=== PATIENT | female | born 1935 | race African-American/Black ===

== ENCOUNTER → 2018-08-01 | Day surgery (SDC) | payer MEDICARE, OTHER ==
[~2018-08-01] MED LIST: BETAMET ACET/BETAMET NA INJ 6 MG/1 ML IM PRN; BUPIVACAINE HCL 0.5 % INJ/PF 30 ML SDV ONE
--- NOTE | 2018-08-01 15:54 | RADIOLOGY REPORT (SQ) ---
EXAM DESCRIPTION: INJ W/O EPI/SUBARACH L/S SPINE COMPLETED DATE/TIME: 08/01/2018 3:18 pm REASON FOR STUDY: M54.16 RADICULOPATHY, LUMBAR REGION M54.16 RADICULOPATHY, LUMBAR REGION COMPARISON: MRI lumbar spine 07/08/2018, [facility] FLUOROSCOPY TIME: 1.8 minutes 5 digital radiographic images saved to PACS. TECHNIQUE: Intra-operative images acquired during surgical procedure to evaluate progress. NUMBER OF IMAGES: 5 digital radiographic images saved to pac's LIMITATIONS: None. FINDINGS: Procedure was discussed with the patient and she agreed to procedure. Informed consent wa s obtained. Patient has lower lumbar pain without radiculopathy. S After sterile skin prep ChloraPrep and local lidocaine for skin and deep tissue anesthesia, a 22 gaug e needle was placed along the left interlaminar space at the L2-3 level. I was unable to pass the ne edle into the dorsal epidural space to the ligament calcifications/ossification. Fluoroscopy over th e remainder of the lower lumbar spine yielded no window for placement of lumbar epidural steroid thro ugh a interlaminar injection. Further attempts over the lumbar spine were not made. Fluoroscopy was used to localize the sacral foramen. After sterile skin prep and local lidocaine for skin and soft tissue anesthesia, a 25 gauge needle was used to access the lumbar epidural space. Ne edle placement was confirmed by injection of small amount Dotarem contrast. At this point, 6 mg of C elestone and 3.5 mL of dilute 0.5% bupivacaine was injected. No immediate postprocedure complication s. IMPRESSION: Caudal epidural steroid injection under fluoroscopy as above COMMENT: Quality ID [id number]: Final reports for procedures using fluoroscopy that document radiation exp osure indices, or exposure time and number of fluorographic images (if radiation exposure indices are not available) Please consult full operative report of the attending physician for description of the procedure. TECHNICAL DOCUMENTATION: JOB ID: [id number] [employer]- All Rights Reserved Reading location - IP/workstation name: [email or web address]
== END ==
LOC: RAD 13:46
PROVIDERS: ATTEND Physician Assistant
DX: M54.16 Radiculopathy, lumbar region (principal)
CPT/HCPCS: 62321; A9576; J3490; J0702

== ENCOUNTER 2019-10-28 09:02 | Observation (INO) | payer MEDICARE, OTHER ==
[2019-10-28 09:27] LABS: ABSOLUTE BASOPHILS # (AUTO) 0.1 10^3/uL (0.0-0.2); ABSOLUTE LYMPHOCYTES (AUTO) 1.1 10^3/uL (0.5-4.7); ABSOLUTE MONOCYTES (AUTO) 0.6 10^3/uL (0.1-1.4); ABSOLUTE NEUT (AUTO) 6.5 10^3/uL (1.7-8.2); BASOPHILS % (AUTO) 1.1 % (0-2); HEMATOCRIT 30.3 % (36.0-47.0); HEMOGLOBIN 10.1 g/dL (12.0-15.5); LYMPHOCYTES % (AUTO) 13.8 % (13-45); MEAN CORPUSCULAR HEMOGLOBIN 28.9 pg (27.0-33.4); MEAN CORPUSCULAR HGB CONC 33.2 g/dL (32.0-36.0); MEAN CORPUSCULAR VOLUME 87 fl (80-97); MONOCYTES % (AUTO) 6.8 % (3-13); PLATELET COUNT 284 10^3/uL (150-450); RED BLOOD COUNT 3.48 10^6/uL (3.72-5.28); RED CELL DISTRIBUTION WIDTH 14.2 % (11.5-14.0); SEGMENTED NEUTROPHILS % (AUTO) 78.3 % (42-78); TOTAL CELLS COUNTED % (AUTO) 100 %; WHITE BLOOD COUNT 8.3 10^3/uL (4.0-10.5)
[2019-10-28 09:29] LABS: VENOUS BLOOD BASE EXCESS 8.9 mmol/L; VENOUS BLOOD HCO3 38.6 mmol/L (20-32); VENOUS BLOOD PH 7.27 (7.30-7.42)
[2019-10-28 09:33] LABS: VENOUS BLOOD PCO2 85.4 mmHg (35-63)
--- NOTE | 2019-10-28 09:35 | RADIOLOGY REPORT (SQ) ---
EXAM DESCRIPTION: CHEST SINGLE VIEW COMPLETED DATE/TIME: 10/28/2019 9:24 am REASON FOR STUDY: sob COMPARISON: None. EXAM PARAMETERS: NUMBER OF VIEWS: One view. TECHNIQUE: Single frontal radiographic view of the chest acquired. RADIATION DOSE: NA LIMITATIONS: None. FINDINGS: LUNGS AND PLEURA: Lung schuler are hyperexpanded. There is elevation of left hemidiaphragm . Pleural thickening versus small left effusion. No consolidation. No pneumothorax. MEDIASTINUM AND HILAR STRUCTURES: No masses. Contour normal. HEART AND VASCULAR STRUCTURES: Heart normal in size. Normal vasculature. BONES: No acute findings. HARDWARE: None in the chest. OTHER: No other significant finding. IMPRESSION: COPD with small left pleural effusion versus pleural thickening. TECHNICAL DOCUMENTATION: JOB ID: [id number] [email or web address]- All Rights Reserved Reading location - IP/workstation name: [email or web address]
[2019-10-28 09:57] LABS: ALBUMIN 3.5 g/dL (3.5-5.0); ALKALINE PHOSPHATASE 91 U/L (38-126); ASPARTATE AMINO TRANSFERASE 29 U/L (14-36); BILIRUBIN,TOTAL 0.6 mg/dL (0.2-1.3); BLOOD UREA NITROGEN 17 mg/dL (7-20); CALCIUM 8.9 mg/dL (8.4-10.2); CARBON DIOXIDE 37 mmol/L (22-30); GLUCOSE 108 mg/dL (75-110); POTASSIUM 3.9 mmol/L (3.6-5.0); TOTAL PROTEIN 6.9 g/dL (6.3-8.2)
[2019-10-28 10:03] LABS: ANION GAP 5 (5-19); CHLORIDE 97 mmol/L (98-107)
[2019-10-28 10:10] LABS: NT PRO BNP 236 pg/mL (<450)
[2019-10-28 10:11] LABS: TROPONIN I < 0.012 ng/mL
[2019-10-28 10:22] LABS: ARTERIAL BLOOD BASE EXCESS 5.3 mmol/L; ARTERIAL BLOOD H2CO3 1.82 mmol/L (1.05-1.35); ARTERIAL BLOOD HCO3 32.5 mmol/L (20-24); ARTERIAL BLOOD O2 SATURATION 96.1 % (94-98); ARTERIAL BLOOD PCO2 60.4 mmHg (35-45); ARTERIAL BLOOD PH 7.35 (7.35-7.45); ARTERIAL BLOOD PO2 88.2 mmHg (80-100); ARTERIAL BLOOD TOTAL CO2 34.4 mmol/L (21-25)
[2019-10-28 10:23] LABS: ARTERIAL BLOOD FIO2 40%
[2019-10-28] MEDS ORDERED: CEFTRIAXONE 2 GM/D5W RTU 2 GM/50 ML RTUPB IV ONE (10:49)
[2019-10-28] MEDS ORDERED: AZITHROMYCIN 250 MG TABLET PO ONE (10:49)
--- NOTE | 2019-10-28 11:07 | ER Document Report ---
ED General - General Chief Complaint: Shortness Of Breath Stated Complaint: DIFFICULTY BREATHING Time Seen by Provider: 10/28/19 09:26 Primary Care Provider: BARRY PALMER MD [Primary Care Provider] - Follow up as needed Mode of Arrival: Medic Information source: Patient, Emergency Med Personnel TRAVEL OUTSIDE OF THE [place] IN LAST 30 DAYS: No - HPI Notes: Patient presents with complaints of shortness of breath. This apparently started earlier this morning. It is been severe and constant. It was with exertion better with rest. No known radiation of the symptoms. No fever. She has had a mild dry cough. She does have a history of COPD. No history of congestive heart failure. No significant pain. No fevers or rashes. Paramedics gave the patient CPAP, nebulizers, steroids, and magnesium with significant relief of the patient's symptoms in route. - Related Data Allergies/Adverse Reactions: No Known Allergies Allergy (Unverified 06/15/14 11:32) Past Medical History - General Information source: Patient - Social History Smoking Status: Former Smoker Frequency of alcohol use: None Drug Abuse: None Family History: Reviewed & Not Pertinent Patient has suicidal ideation: No Patient has homicidal ideation: No - Past Medical History Cardiac Medical History: Reports: Hx Hypertension Denies: Hx Heart Attack Pulmonary Medical History: Reports: Hx Asthma - USES INHALER Neurological Medical History: Denies: Hx Cerebrovascular Accident, Hx Seizures GI Medical History: Denies: Hx Hepatitis, Hx Hiatal Hernia, Hx Ulcer Infectious Medical History: Denies: Hx Hepatitis Past Surgical History: Reports: Hx Hysterectomy. Denies: Hx Mastectomy, Hx Open Heart Surgery, Hx Pacemaker Review of Systems - Review of Systems Constitutional: Malaise, Weakness. denies: Chills, Fever Cardiovascular: Palpitations. denies: Chest pain Respiratory: Cough, Short of breath -: Yes All other systems reviewed and negative Physical Exam - Vital signs Vitals: Resp Pulse Ox 20 100 10/28/19 09:09 10/28/19 09:09 Interpretation: Hypertensive, Tachypneic - General General appearance: Alert In distress: Mild - HEENT Head: Normocephalic, Atraumatic Eyes: Normal Pupils: PERRL - Respiratory Respiratory status: Respiratory distress - Mild Chest status: Nontender Breath sounds: Decreased air movement, Nonproductive cough, Rhonchi, Wheezing Chest palpation: Normal - Cardiovascular Rhythm: Regular Heart sounds: Normal auscultation Murmur: No - Abdominal Inspection: Normal Distension: No distension Bowel sounds: Normal Tenderness: Nontender Organomegaly: No organomegaly - Back Back: Normal, Nontender - Extremities General upper extremity: Normal inspection, Nontender, Normal color, Normal ROM, Normal temperature General lower extremity: Normal inspection, Nontender, Normal color, Normal ROM, Normal temperature, Normal weight bearing. No: Rebecca's sign - Neurological Neuro grossly intact: Yes Cognition: Normal Orientation: AAOx4 Derwent Coma Scale Eye Opening: Spontaneous Nina Coma Scale Verbal: Oriented Nina Coma Scale Motor: Obeys Commands Derwent Coma Scale Total: 15 Speech: Normal Motor strength normal: LUE, RUE, LLE, RLE Sensory: Normal - Psychological Associated symptoms: Normal affect, Normal mood - Skin Skin Temperature: Warm Skin Moisture: Dry Skin Color: Normal Course - Re-evaluation Re-evalutation: 10/28/19 11:04 Patient has history of COPD and arrived with some mild respiratory distress. Blood gas shows the patient has some CO2 retention and mild acidemia consistent with respiratory failure. She has no evidence of pneumonia at this time. No ev idence of heart failure. However given patient's history of COPD I will cover her with antibiotics. I have discussed the case with the hospitalist for admission. - Vital Signs Vital signs: Temp Pulse Resp BP Pulse Ox 97.3 F 20 202/75 H 100 10/28/19 09:16 10/28/19 09:09 10/28/19 09:12 10/28/19 09:15 - Laboratory Result Diagrams: 10/28/19 09:14 10/28/19 09:14 Laboratory results interpreted by me: 10/28/19 10/28/19 10/28/19 09:14 09:14 09:14 RBC 3.48 L Hgb 10.1 L Hct 30.3 L RDW 14.2 H Seg Neutrophils % 78.3 H Carbonic Acid ABG pCO2 ABG HCO3 ABG Total CO2 VBG pH 7.27 L VBG pCO2 85.4 H* VBG HCO3 38.6 H Chloride 97 L Carbon Dioxide 37 H 10/28/19 10:08 RBC Hgb Hct RDW Seg Neutrophils % Carbonic Acid 1.82 H ABG pCO2 60.4 H ABG HCO3 32.5 H ABG Total CO2 34.4 H VBG pH VBG pCO2 VBG HCO3 Chloride Carbon Dioxide - Diagnostic Test Radiology reviewed: Image reviewed, Reports reviewed - EKG Interpretation by Me EKG shows normal: Sinus rhythm Rate: Normal - 83 Rhythm: NSR Langley/QRS: No: Right axis deviation, Left axis deviation Critical Care Note - Critical Care Note Total time excluding time spent on procedures (mins): 50 Comments: Approximately 50 minutes of critical care time were spent taking care of this patient with hypercapnic respiratory failure. This was spent with multiple reassessments. It was spent discussing with multiple consultants. It was spent reviewing laboratories and x-rays. Discharge - Discharge Clinical Impression: Acute exacerbation of chronic obstructive pulmonary disease (COPD), Acute respiratory failure with hypercapnia Condition: Fair Disposition: ADMITTED INPATIENT Admitting Provider: Dyan (Hospitalist) - martha to admit Unit Admitted: Medical Floor Referrals: BARRY PALMER MD [Primary Care Provider] - Follow up as needed
[2019-10-28] MEDS ORDERED: MAG HYDROX/AL HYDROX/SIMETH SUSP 30 ML UDCUP PO PRN (11:30)
[2019-10-28] MEDS ORDERED: ALBUTEROL SULFATE 0.083% NEB 2.5 MG/3 ML AMPUL NEB PRN (11:30)
[2019-10-28] MEDS ORDERED: ACETAMINOPHEN 325 MG TABLET PO PRN (11:30)
[2019-10-28] MEDS ORDERED: ONDANSETRON HCL INJ/PF 4 MG/2 ML SDV IV PRN (11:30)
[2019-10-28] MEDS ORDERED: HYDRALAZINE HCL INJ/PF 20 MG/1 ML SDV IV PRN (12:58)
--- NOTE | 2019-10-28 13:09 | PDOC H&P ---
History of Present Illness Admission Date/PCP: 10/28/19 11:13 BARRY PALMER MD Patient complains of: shortness of breath History of Present Illness: TERRI ARREDONDO is a 84 year old female with a past medical history significant for COPD (home O2 dependent) and hypertension who presented to the emergency department today via EMS with complaint of shortness of breath; initially CPAP dependent after receiving IV Solu-Medrol, nebulizer treatments, and IV magnesium . Patient reports 2 to 3 days of progressively worsening shortness of breath and nonproductive cough. Her shortness of breath significantly worsened earlier this morning and was unresponsive to home nebulizer treatments. Evaluation in the emergency department revealed Hypertension, tachypnea, and h ypoxia on her baseline oxygen requirement. She was found to have her baseline anemia with a hemoglobin of 10.1, compensated respiratory acidosis with a PCO2 of 60.4, elevated bicarb on chemistry but otherwise unremarkable laboratory evaluation. Chest x-ray demonstrated COPD changes without acute findings. She was placed on BiPAP and referred to the hospital service for admission and management of the above-stated complaints and findings. Past Medical History Cardiac Medical History: Reports: Hypertension Denies: Myocardial Infarction Pulmonary Medical History: Reports: Asthma, Other - chronic respiratory failure (home O2 dependent) EENT Medical History: Reports: Cataracts Neurological Medical History: Denies: Ischemic CVA, Seizures Endocrine Medical History: Reports: None Renal/ Medical History: Reports: None Malignancy Medical History: Reports: None GI Medical History: Denies: Hepatitis, Hiatal Hernia Musculoskeltal Medical History: Reports: None Skin Medical History: Reports: None Psychiatric Medical History: Reports: Tobacco Dependency Traumatic Medical History: Reports: None Hematology: Reports: Anemia Denies: Sickle Cell Disease Infectious Medical History: Reports: None Past Surgical History Past Surgical History: Reports: Hysterectomy Denies: Amputation, Mastectomy, Pacemaker Social History Information Source: Patient Smoking Status: Former Smoker Electronic Cigarette use?: No Frequency of Alcohol Use: None Hx Recreational Drug Use: No Hx Prescription Drug Abuse: No Family History Family History: Reviewed & Not Pertinent Parental Family History Reviewed: Yes Children Family History Reviewed: Yes Sibling(s) Family History Reviewed.: Yes Medication/Allergy Home Medications: Diazepam [Valium 5 Mg Tablet] 5 mg PO PRN PRN 04/17/13 Amlodipine Besylate [Norvasc 10 mg Tablet] 10 mg PO DAILY 06/15/14 Cetirizine HCl [Zyrtec] 10 mg PO DAILY PRN 06/15/14 Valsartan/Hydrochlorothiazide [Valsartan-Hctz 320-12.5 mg Tab] 1 each PO DAILY 06/15/14 Albuterol Sulfate [Proair HFA] 2 puff IH Q4 PRN 06/16/14 Tiotropium [place] [Spiriva Handihaler 18 mcg/dose (30 Dose)] 1 cap IH DAILY 06/16/14 Allergies/Adverse Reactions: No Known Allergies Allergy (Unverified 06/15/14 11:32) Review of Systems Constitutional: ABSENT: chills, fever(s), headache(s), weight gain, weight loss Eyes: ABSENT: visual disturbances Ears: ABSENT: hearing changes Cardiovascular: ABSENT: chest pain, dyspnea on exertion, edema, orthropnea, palpitations Respiratory: PRESENT: cough, dyspnea. ABSENT: hemoptysis Gastrointestinal: ABSENT: abdominal pain, constipation, diarrhea, hematemesis, hematochezia, nausea, vomiting Genitourinary: ABSENT: dysuria, hematuria Musculoskeletal: ABSENT: joint swelling Integumentary: ABSENT: rash, wounds Neurological: ABSENT: abnormal gait, abnormal speech, confusion, dizziness, focal weakness, syncope Psychiatric: ABSENT: anxiety, depression, homidical ideation, suicidal ideation Endocrine: ABSENT: cold intolerance, heat intolerance, polydipsia, polyuria Hematologic/Lymphatic: ABSENT: easy bleeding, easy bruising Physical Exam Vital Signs: Temp Pulse Resp BP Pulse Ox 97.3 F 22 H 202/75 H 97 10/28/19 09:16 10/28/19 11:16 10/28/19 09:12 10/28/19 11:16 Intake & Output 10/27/19 10/28/19 10/29/19 06:59 06:59 06:59 Intake Total 50 Balance 50 Weight 47.8 kg General appearance: PRESENT: no acute distress, cooperative, thin, well- developed, well-nourished Head exam: PRESENT: atraumatic, normocephalic Eye exam: PRESENT: conjunctiva pink, EOMI, PERRLA. ABSENT: scleral icterus Mouth exam: PRESENT: moist, tongue midline Teeth exam: PRESENT: poor dentation Respiratory exam: PRESENT: accessory muscle use, decreased breath sounds, prolonged expiratory phas, rhonchi, symmetrical, tachypnea, wheezes, other - Supplemental oxygen via nasal cannula. ABSENT: rales Cardiovascular exam: PRESENT: RRR, +S1, +S2. ABSENT: diastolic murmur, rubs, systolic murmur Pulses: PRESENT: normal dorsalis pedis pul Vascular exam: PRESENT: normal capillary refill Extremities exam: PRESENT: full ROM. ABSENT: calf tenderness, clubbing, pedal edema Neurological exam: PRESENT: alert, awake, oriented to person, oriented to place, oriented to time, oriented to situation, CN II-XII grossly intact. ABSENT: motor sensory deficit Psychiatric exam: PRESENT: appropriate affect, normal mood. ABSENT: homicidal ideation, suicidal ideation Skin exam: PRESENT: dry, intact, warm. ABSENT: cyanosis, rash Results Laboratory Results: 10/28/19 09:14 10/28/19 09:14 10/28/19 10/28/19 10/28/19 09:14 09:14 09:14 WBC 8.3 RBC 3.48 L Hgb 10.1 L Hct 30.3 L MCV 87 MCH 28.9 MCHC 33.2 RDW 14.2 H Plt Count 284 Seg Neutrophils % 78.3 H Carbonic Acid HCO3/H2CO3 Ratio ABG pH ABG pCO2 ABG pO2 ABG HCO3 ABG O2 Saturation ABG Base Excess VBG pH 7.27 L VBG pCO2 85.4 H* VBG HCO3 38.6 H VBG Base Excess 8.9 FiO2 Sodium 139.0 Potassium 3.9 Chloride 97 L Carbon Dioxide 37 H Anion Gap 5 BUN 17 Creatinine 0.58 Est GFR ( Amer) > 60 Glucose 108 Calcium 8.9 Total Bilirubin 0.6 AST 29 Alkaline Phosphatase 91 Total Protein 6.9 Albumin 3.5 10/28/19 10:08 WBC RBC Hgb Hct MCV MCH MCHC RDW Plt Count Seg Neutrophils % Carbonic Acid 1.82 H HCO3/H2CO3 Ratio 17:1 ABG pH 7.35 ABG pCO2 60.4 H ABG pO2 88.2 ABG HCO3 32.5 H ABG O2 Saturation 96.1 ABG Base Excess 5.3 VBG pH VBG pCO2 VBG HCO3 VBG Base Excess FiO2 40% Sodium Potassium Chloride Carbon Dioxide Anion Gap BUN Creatinine Est GFR ( Amer) Glucose Calcium Total Bilirubin AST Alkaline Phosphatase Total Protein Albumin 10/28/19 09:14 Troponin I < 0.012 NT-Pro-B Natriuret Pep 236 Impressions: Chest X-Ray 10/28/19 09:08 IMPRESSION: COPD with small left pleural effusion versus pleural thickening. Assessment and Plan - Diagnosis (1) Acute exacerbation of chronic obstructive pulmonary disease (COPD) Is this a current diagnosis for this admission?: Yes Plan: Patient is admitted to the medical floor. She is placed on supplemental oxygen and BiPAP as needed to maintain oxygen. Continue Solu-medrol. Scheduled and as needed nebulizer treatments. Twice daily Mucinex. Encourage pulmonary toilet with flutter valve and ambulation. (2) Acute and chronic respiratory failure Qualifiers: Respiratory failure complication: hypoxia and hypercapnia Qualified Code(s): J96.21 - Acute and chronic respiratory failure with hypoxia; J96.22 - Acute and chronic respiratory failure with hypercapnia Is this a current diagnosis for this admission?: Yes Plan: Secondary to #1. Evaluation and management as above. (3) Hypertension Is this a current diagnosis for this admission?: Yes Plan: Cardiac diet. Resume home medications once reconciled. IV hydralazine as needed for blood pressure control. (4) Anemia Qualifiers: Anemia type: unspecified type Qualified Code(s): D64.9 - Anemia, unspec ified Is this a current diagnosis for this admission?: Yes Plan: History of anemia; hemoglobin at baseline. We will check anemia panel with a.m. lab work. - Time Time Spent with patient: 35 or more minutes Medications reviewed and adjusted accordingly: Yes Anticipated discharge: Home Within: within 48 hours
[2019-10-28] MEDS: HEPARIN SOD (PORCINE) 5,000 UNIT/ML 1 ML VIAL SUBCUT SCH ×2 (13:51→22:58)
[2019-10-28] MEDS: METHYLPREDNISOLONE INJ 40 MG/1 ML SDV IV SCH ×2 (13:52→22:59)
[2019-10-28] MEDS: IPRATROPIUM/ALBUTEROL 0.5-2.5 MG/3 ML AMPUL NEB SCH ×2 (14:02→19:58)
--- NOTE | 2019-10-28 17:23 | EKG REPORT ---
SEVERITY:- ABNORMAL ECG - SINUS OR ECTOPIC ATRIAL RHYTHM LEFT VENTRICULAR HYPERTROPHY : Confirmed by: Merline Waters MD 28-Oct-2019 17:23:13
[2019-10-29] MEDS: GUAIFENESIN 600 MG TABLET.SA PO SCH ×3 (01:11→22:58)
[2019-10-29] MEDS: FAMOTIDINE 20 MG TABLET PO SCH ×3 (01:11→22:58)
[2019-10-29] MEDS: IPRATROPIUM/ALBUTEROL 0.5-2.5 MG/3 ML AMPUL NEB SCH ×4 (02:02→19:48)
[2019-10-29] MEDS ORDERED: NALOXONE HCL INJ/PF 0.4 MG/1 ML SDV ONE (03:30)
[2019-10-29 05:18] LABS: ABSOLUTE RETICS # 0.059 10^6/uL (0.028-0.122); HEMATOCRIT 27.4 % (36.0-47.0); HEMOGLOBIN 9.3 g/dL (12.0-15.5); MEAN CORPUSCULAR HEMOGLOBIN 29.1 pg (27.0-33.4); MEAN CORPUSCULAR VOLUME 86 fl (80-97); PLATELET COUNT 260 10^3/uL (150-450); RED CELL DISTRIBUTION WIDTH 13.7 % (11.5-14.0); RETICULOCYTE COUNT (AUTO) 1.83 % (0.66-2.85); WHITE BLOOD COUNT 6.4 10^3/uL (4.0-10.5)
[2019-10-29 05:48] LABS: BLOOD UREA NITROGEN 17 mg/dL (7-20); CALCIUM 8.7 mg/dL (8.4-10.2); GLUCOSE 113 mg/dL (75-110); POTASSIUM 4.2 mmol/L (3.6-5.0)
[2019-10-29 05:55] LABS: CARBON DIOXIDE 39 mmol/L (22-30); CHLORIDE 97 mmol/L (98-107)
[2019-10-29 05:58] LABS: ANION GAP 3 (5-19)
[2019-10-29 06:56] LABS: FOLATE 9.79 ng/mL (>2.76)
[2019-10-29] MEDS: HEPARIN SOD (PORCINE) 5,000 UNIT/ML 1 ML VIAL SUBCUT SCH ×3 (07:52→22:57)
[2019-10-29] MEDS: METHYLPREDNISOLONE INJ 40 MG/1 ML SDV IV SCH ×3 (07:52→22:57)
[2019-10-29] MEDS: DOCUSATE SODIUM 100 MG CAPSULE PO SCH (09:05)
--- NOTE | 2019-10-29 18:58 | PDOC PROGRESS REPORT ---
Subjective Progress Note for:: 10/29/19 Subjective:: TERRI ARREDONDO is a 84 year old female with a past medical history significant for COPD (home O2 dependent) and hypertension who was admitted 10/28/2019 with Acute respiratory failure with hypoxia and hypercapnia secondary to COPD exacerbation. Patient was seen on morning rounds. She was found to be resting in bed, comfortably, on her baseline oxygen requirement. She did not require BiPAP overnight. She reports that she is feeling significantly better, though does continue to have slight shortness of breath with minimal activity. She denies fever, chest pain, palpitations, abdominal pain, nausea vomiting and diarrhea. She does request assistance with setting up for home health services and a relating walker. Has no other questions or concerns at this time. No concerns per nursing. Reason For Visit: ACUTE RESPIRATORY FAILURE W/ HYPOXIA, COPD Physical Exam Vital Signs: Temp Pulse Resp BP Pulse Ox 98.3 F 83 16 169/64 H 97 10/29/19 11:28 10/29/19 14:10 10/29/19 14:10 10/29/19 11:28 10/29/19 14:10 Intake & Output 10/28/19 10/29/19 10/30/19 06:59 06:59 06:59 Intake Total 290 500 Balance 290 500 Weight 43.2 kg General appearance: PRESENT: no acute distress, cooperative, thin, well-developed, well-nourished Head exam: PRESENT: atraumatic, normocephalic Eye exam: PRESENT: conjunctiva pink, EOMI, PERRLA. ABSENT: scleral icterus Mouth exam: PRESENT: moist, tongue midline Teeth exam: PRESENT: poor dentation Respiratory exam: PRESENT: clear to auscultation ada, decreased breath sounds - Bibasilar, symmetrical, unlabored, other - Supplemental oxygen via nasal nam alize. ABSENT: rales, rhonchi, wheezes Cardiovascular exam: PRESENT: RRR, +S1, +S2. ABSENT: diastolic murmur, rubs, systolic murmur Pulses: PRESENT: normal dorsalis pedis pul Vascular exam: PRESENT: normal capillary refill Extremities exam: PRESENT: full ROM. ABSENT: calf tenderness, clubbing, pedal edema Neurological exam: PRESENT: alert, awake, oriented to person, oriented to place, oriented to time, oriented to situation, CN II-XII grossly intact. ABSENT: motor sensory deficit Psychiatric exam: PRESENT: appropriate affect, normal mood. ABSENT: homicidal ideation, suicidal ideation Skin exam: PRESENT: dry, intact, warm. ABSENT: cyanosis, rash Results Laboratory Results: 10/29/19 04:54 10/29/19 04:54 10/29/19 10/29/19 04:54 04:54 WBC 6.4 RBC 3.20 L Hgb 9.3 L Hct 27.4 L MCV 86 MCH 29.1 MCHC 34.0 RDW 13.7 Plt Count 260 Retic Count (auto) 1.83 Sodium 138.6 Potassium 4.2 Chloride 97 L Carbon Dioxide 39 H Anion Gap 3 L BUN 17 Creatinine 0.55 Est GFR ( Amer) > 60 Glucose 113 H Calcium 8.7 Iron 41.0 TIBC 195 L % Saturation 21 Ferritin 80.50 Vitamin B12 880.0 Folate 9.79 10/28/19 09:14 Troponin I < 0.012 NT-Pro-B Natriuret Pep 236 Impressions: Chest X-Ray 10/28/19 09:08 IMPRESSION: COPD with small left pleural effusion versus pleural thickening. Assessment and Plan - Diagnosis (1) Acute exacerbation of chronic obstructive pulmonary disease (COPD) Is this a current diagnosis for this admission?: Yes Plan: Improved; now maintaining oxygen saturations on nasal cannula while at rest. Lung sounds are improved. Patient is admitted to the medical floor. She is placed on supplemental oxygen and BiPAP as needed to maintain oxygen. Continue Solu-medrol; will decrease steroids today. Scheduled and as needed nebulizer treatments. Twice daily Mucinex. Encourage pulmonary toilet with flutter valve and ambulation. (2) Acute and chronic respiratory failure Qualifiers: Respiratory failure complication: hypoxia and hypercapnia Qualified Code(s): J96.21 - Acute and chronic respiratory failure with hypoxia; J96.22 - Acute and chronic respiratory failure with hypercapnia Is this a current diagnosis for this admission?: Yes Plan: Secondary to #1. Evaluation and management as above. (3) Hypertension Is this a current diagnosis for this admission?: Yes Plan: Cardiac diet. Resume home amlodipine and hydrochlorothiazide. IV hydralazine as needed for blood pressure control. (4) Anemia Qualifiers: Anemia type: unspecified type Qualified Code(s): D64.9 - Anemia, unspecified Is this a current diagnosis for this admission?: Yes Plan: History of anemia; hemoglobin at baseline. Anemia panel unremarkable. Continue multivitamin and iron supplement. - Time Time Spent with patient: 25-34 minutes Medications reviewed and adjusted accordingly: Yes Anticipated discharge: Home with Homehealth Within: within 48 hours
[2019-10-30] MEDS: IPRATROPIUM/ALBUTEROL 0.5-2.5 MG/3 ML AMPUL NEB SCH ×3 (01:38→13:49)
[2019-10-30] MEDS: METHYLPREDNISOLONE INJ 40 MG/1 ML SDV IV SCH ×2 (06:59→15:14)
[2019-10-30] MEDS: HEPARIN SOD (PORCINE) 5,000 UNIT/ML 1 ML VIAL SUBCUT SCH ×2 (07:01→15:12)
[2019-10-30] MEDS: DOCUSATE SODIUM 100 MG CAPSULE PO SCH (09:08)
[2019-10-30] MEDS: FAMOTIDINE 20 MG TABLET PO SCH (09:08)
[2019-10-30] MEDS: GUAIFENESIN 600 MG TABLET.SA PO SCH (09:08)
[2019-10-30] MEDS ORDERED: FERROUS SULFATE 325 MG TABLET PO SCH (10:00)
[2019-10-30] MEDS ORDERED: AMLODIPINE BESYLATE 10 MG TABLET PO SCH (10:00)
[2019-10-30] MEDS ORDERED: HYDROCHLOROTHIAZIDE 12.5 MG TABLET PO SCH (10:00)
[2019-10-30] MEDS ORDERED: MULTIVITAMIN TABLET PO SCH (10:00)
[2019-10-30 16:29] VITALS: BP 176/63
--- NOTE | 2019-10-31 18:08 | PDOC DISCHARGE SUMMARY ---
Impression - Admit/DC Date/PCP Admission Date/Primary Care Provider: 10/28/19 11:13 BARRY PALMER MD Discharge Date: 10/30/19 - Discharge Diagnosis (1) Acute exacerbation of chronic obstructive pulmonary disease (COPD) Is this a current diagnosis for this admission?: Yes (2) Acute and chronic respiratory failure Is this a current diagnosis for this admission?: Yes (3) Hypertension Is this a current diagnosis for this admission?: Yes (4) Anemia Is this a current diagnosis for this admission?: Yes - Additional Information Resuscitation Status: Full Code Discharge Diet: As Tolerated Referrals: [facility] [Provider Group] (pt is seen by the blue team at [facility]) Prescriptions: Prednisone [Deltasone 20 mg Tablet] 60 mg PO DAILY #12 tablet Ferrous Sulfate [Feosol 325 mg Tablet] 325 mg PO DAILY #30 tablet Guaifenesin [Mucinex Sr 600 mg Tablet.sa] 600 mg PO Q12 #14 tablet.sa Famotidine [Pepcid 20 mg Tablet] 20 mg PO Q12 #60 tablet Multivitamin [Tab-A-Desmond (Multiple Vitamin) Tablet] 1 tab PO DAILY #30 tablet Home Medications: Amlodipine Besylate [Norvasc 10 mg Tablet] 10 mg PO DAILY 06/15/14 Albuterol Sulfate [Proair HFA] 2 puff IH Q4 PRN 06/16/14 Fluticasone/Salmeterol [Advair 250-50 Diskus 14 Dose/Diskus] 1 inh IH Q12H 10/28/19 Hydrochlorothiazide [Hydrodiuril 12.5 mg Tablet] 12.5 mg PO DAILY 10/28/19 Ipratropium/Albuterol Sulfate [Combivent Respimat 4 gm Mdi] 1 puff IH Q6 10/28/19 Acetaminophen [Tylenol 325 mg Tablet] 650 mg PO Q4HP PRN tablet 10/30/19 Famotidine [Pepcid 20 mg Tablet] 20 mg PO Q12 #60 tablet 10/30/19 Ferrous Sulfate [Feosol 325 mg Tablet] 325 mg PO DAILY #30 tablet 10/30/19 Guaifenesin [Mucinex Sr 600 mg Tablet.sa] 600 mg PO Q12 #14 tablet.sa 10/30/19 Multivitamin [Tab-A-Desmond (Multiple Vitamin) Tablet] 1 tab PO DAILY #30 tablet 10/30/19 Prednisone [Deltasone 20 mg Tablet] 60 mg PO DAILY #12 tablet 10/30/19 History of Present Illiness History of Present Illness: TERRI ARREDONDO is a 84 year old female with a past medical history significant for COPD (home O2 dependent) and hypertension who presented to the emergency department today via EMS with complaint of shortness of breath; initially CPAP dependent after receiving IV Solu-Medrol, nebulizer treatments, and IV magnesium. Patient reports 2 to 3 days of progressively worsening shortness of breath and nonproductive cough. Her shortness of breath significantly worsened earlier this morning and was unresponsive to home nebulizer treatments. Evaluation in the emergency department revealed Hypertension, tachypnea, and hypoxia on her baseline oxygen requirement. She was found to have her baseline anemia with a hemoglobin of 10.1, compensated respiratory acidosis with a PCO2 of 60.4, elevated bicarb on chemistry but otherwise unremarkable laboratory evaluation. Chest x-ray demonstrated COPD changes without acute findings. She was placed on BiPAP and referred to the hospital service for admission and management of the above-stated complaints and findings. Hospital Course Hospital Course: (1) Acute exacerbation of chronic obstructive pulmonary disease (COPD) Acute exacerbation is resolved. Now maintaining oxygen saturations on baseline oxygen requirement; lung sounds are clear. Patient was admitted to the medical floor. She was placed on supplemental oxygen and BiPAP, scheduled and as needed nebulizer treatments, twice daily Mucinex, and Solu-medrol. Pulmonary toilet was encourage with flutter valve and ambulation. Her symptoms rapidly improved and she was discharged home the following day with home health services. (2) Acute and chronic respiratory failure Secondary to #1. Evaluation and management as above. (3) Hypertension Cardiac diet. Continued on home amlodipine and hydrochlorothiazide. (4) Anemia History of anemia; hemoglobin at baseline. Anemia panel unremarkable. Continue multivitamin and iron supplement. Physical Exam Vital Signs: Temp Pulse Resp BP Pulse Ox 97.7 F 63 16 176/63 H 97 10/30/19 16:27 10/30/19 16:27 10/30/19 16:27 10/30/19 16:27 10/30/19 16:27 Intake & Output 10/30/19 10/31/19 11/01/19 06:59 06:59 06:59 Intake Total 900 Output Total 2 Balance 898 Weight 41.6 kg General appearance: PRESENT: no acute distress, cooperative, thin, well-develop ed, well-nourished Head exam: PRESENT: atraumatic, normocephalic Eye exam: PRESENT: conjunctiva pink, EOMI, PERRLA. ABSENT: scleral icterus Mouth exam: PRESENT: moist, tongue midline Teeth exam: PRESENT: poor dentation Respiratory exam: PRESENT: clear to auscultation ada, decreased breath sounds - bibasilar, symmetrical, unlabored, other - baseline oxygen requirement. ABSENT: rales, rhonchi, wheezes Cardiovascular exam: PRESENT: RRR, +S1, +S2. ABSENT: diastolic murmur, rubs, systolic murmur Pulses: PRESENT: normal dorsalis pedis pul Vascular exam: PRESENT: normal capillary refill GI/Abdominal exam: PRESENT: normal bowel sounds, soft. ABSENT: distended, guarding, mass, organolmegaly, rebound, tenderness Rectal exam: PRESENT: deferred Extremities exam: PRESENT: full ROM. ABSENT: calf tenderness, clubbing, pedal edema Musculoskeletal exam: PRESENT: ambulatory Neurological exam: PRESENT: alert, awake, oriented to person, oriented to place, oriented to time, oriented to situation, CN II-XII grossly intact. ABSENT: motor sensory deficit Psychiatric exam: PRESENT: appropriate affect, normal mood. ABSENT: homicidal ideation, suicidal ideation Skin exam: PRESENT: dry, intact, warm. ABSENT: cyanosis, rash Results Laboratory Results: WBC 6.4 10^3/uL (4.0-10.5) 10/29/19 04:54 RBC 3.20 10^6/uL (3.72-5.28) L 10/29/19 04:54 Hgb 9.3 g/dL (12.0-15.5) L 10/29/19 04:54 Hct 27.4 % (36.0-47.0) L 10/29/19 04:54 MCV 86 fl (80-97) 10/29/19 04:54 MCH 29.1 pg (27.0-33.4) 10/29/19 04:54 MCHC 34.0 g/dL (32.0-36.0) 10/29/19 04:54 RDW 13.7 % (11.5-14.0) 10/29/19 04:54 Plt Count 260 10^3/uL (150-450) 10/29/19 04:54 Lymph % (Auto) 13.8 % (13-45) 10/28/19 09:14 Glenn % (Auto) 6.8 % (3-13) 10/28/19 09:14 Eos % (Auto) 0.0 % (0-6) 10/28/19 09:14 Baso % (Auto) 1.1 % (0-2) 10/28/19 09:14 Reticulocyte # 0.059 10^6/uL (0.028-0.122) 10/29/19 04:54 Absolute Neuts (auto) 6.5 10^3/uL (1.7-8.2) 10/28/19 09:14 Absolute Lymphs (auto) 1.1 10^3/uL (0.5-4.7) 10/28/19 09:14 Absolute Monos (auto) 0.6 10^3/uL (0.1-1.4) 10/28/19 09:14 Absolute Eos (auto) 0.0 10^3/uL (0.0-0.6) 10/28/19 09:14 Absolute Basos (auto) 0.1 10^3/uL (0.0-0.2) 10/28/19 09:14 Seg Neutrophils % 78.3 % (42-78) H 10/28/19 09:14 Retic Count (auto) 1.83 % (0.66-2.85) 10/29/19 04:54 Carbonic Acid 1.82 mmol/L (1.05-1.35) H 10/28/19 10:08 HCO3/H2CO3 Ratio 17:1 10/28/19 10:08 ABG pH 7.35 (7.35-7.45) 10/28/19 10:08 ABG pCO2 60.4 mmHg (35-45) H 10/28/19 10:08 ABG pO2 88.2 mmHg (80-100) 10/28/19 10:08 ABG HCO3 32.5 mmol/L (20-24) H 10/28/19 10:08 ABG Total CO2 34.4 mmol/L (21-25) H 10/28/19 10:08 ABG O2 Saturation 96.1 % (94-98) 10/28/19 10:08 ABG Base Excess 5.3 mmol/L 10/28/19 10:08 VBG pH 7.27 (7.30-7.42) L 10/28/19 09:14 VBG pCO2 85.4 mmHg (35-63) H* 10/28/19 09:14 VBG HCO3 38.6 mmol/L (20-32) H 10/28/19 09:14 VBG Base Excess 8.9 mmol/L 10/28/19 09:14 FiO2 40% 10/28/19 10:08 Sodium 138.6 mmol/L (137-145) 10/29/19 04:54 Potassium 4.2 mmol/L (3.6-5.0) 10/29/19 04:54 Chloride 97 mmol/L (98-107) L 10/29/19 04:54 Carbon Dioxide 39 mmol/L (22-30) H 10/29/19 04:54 Anion Gap 3 (5-19) L 10/29/19 04:54 BUN 17 mg/dL (7-20) 10/29/19 04:54 Creatinine 0.55 mg/dL (0.52-1.25) 10/29/19 04:54 Est GFR ( Amer) > 60 (>60) 10/29/19 04:54 Est GFR (MDRD) Non-Af > 60 (>60) 10/29/19 04:54 Glucose 113 mg/dL (75-110) H 10/29/19 04:54 Calcium 8.7 mg/dL (8.4-10.2) 10/29/19 04:54 Iron 41.0 ug/dL (37-170) 10/29/19 04:54 TIBC 195 ug/dL (250-450) L 10/29/19 04:54 % Saturation 21 % 10/29/19 04:54 Ferritin 80.50 ng/mL (11.1-264.0) 10/29/19 04:54 Total Bilirubin 0.6 mg/dL (0.2-1.3) 10/28/19 09:14 Direct Bilirubin 0.0 mg/dL (0.0-0.4) 10/28/19 09:14 Neonat Total Bilirubin Not Reportable 10/28/19 09:14 Neonat Direct Bilirubin Not Reportable 10/28/19 09:14 Neonat Indirect Bili Not Reportable 10/28/19 09:14 AST 29 U/L (14-36) 10/28/19 09:14 ALT 18 U/L (<35) 10/28/19 09:14 Alkaline Phosphatase 91 U/L (38-126) 10/28/19 09:14 Troponin I < 0.012 ng/mL 10/28/19 09:14 NT-Pro-B Natriuret Pep 236 pg/mL (<450) 10/28/19 09:14 Total Protein 6.9 g/dL (6.3-8.2) 10/28/19 09:14 Albumin 3.5 g/dL (3.5-5.0) 10/28/19 09:14 Vitamin B12 880.0 pg/mL (239-931) 10/29/19 04:54 Folate 9.79 ng/mL (>2.76) 10/29/19 04:54 10/28/19 09:14 Troponin I < 0.012 NT-Pro-B Natriuret Pep 236 Impressions: Chest X-Ray 10/28/19 09:08 IMPRESSION: COPD with small left pleural effusion versus pleural thickening. Plan Plan of Treatment: Patient was discharged home, in stable condition, to the care of family with home health services. She is advised to follow up with her primary care provider within 1 week. Take medications as prescribed. Avoid respiratory triggers (smoke, dust, pollen, pet dander). Return to the emergency department as needed for concerning symptoms. Time Spent: Greater than 30 Minutes Stroke Is this a Stroke Patient?: No Acute Heart Failure - Is this a Heart Failure Patient?: No
== END 2019-10-30 17:35 | disposition home or self-care (01) ==
LOC: ER 09:02 → INTOOBSV 11:13 → EH 11:13 → 4W 13:39
PROVIDERS: ADMIT Internal Medicine; ATTEND Internal Medicine
DX: J44.1 Chronic obstructive pulmonary disease with (acute) exacerbation (principal); J96.21 Acute and chronic respiratory failure with hypoxia; J96.22 Acute and chronic respiratory failure with hypercapnia; I10 Essential (primary) hypertension; D64.9 Anemia, unspecified; Z99.81 Dependence on supplemental oxygen; Z79.899 Other long term (current) drug therapy; Z87.891 Personal history of nicotine dependence
CPT/HCPCS: 93005; 99291; 36415 ×2; 82607; 82803 ×2; 82728; 82746; 83540; 83550; 85025; 85027; 85045; 80048; 80053; 84484; 83880; 71045; 93010; 94660 ×2; 94667; 94668; 94640 ×3; 97116; 97163; 92610; 97530; 97535; 97167; G0378 ×4; J1644 ×3; A9270 ×15; J0360; J2920 ×3; J0696; J7620

== ENCOUNTER 2019-11-23 13:29 | Inpatient (IN) | payer MEDICARE, OTHER ==
[2019-11-23] MEDS ORDERED: METHYLPREDNISOLONE INJ 125 MG/2 ML SDV IV ONE (13:38)
[2019-11-23] MEDS ORDERED: IPRATROPIUM/ALBUTEROL 0.5-2.5 MG/3 ML AMPUL NEB ONE (13:38)
--- NOTE | 2019-11-23 13:43 | ER Document Report ---
ED Medical Screen (RME) - General Chief Complaint: Breathing Difficulty Stated Complaint: WHEEZING Time Seen by Provider: 11/23/19 13:34 Primary Care Provider: BARRY PALMER MD [Primary Care Provider] - Follow up as needed Mode of Arrival: Wheelchair Information source: Patient Notes: Patient presents complaint of difficulty breathing and cough that started today. Patient denies any fever. Patient with a history of COPD and does wear oxygen. Patient with labored breathing, speaking in short word sentences. I have greeted and performed a rapid initial assessment of this patient. A comprehensive ED assessment and evaluation of the patient, analysis of test results and completion of the medical decision making process will be conducted by additional ED providers. TRAVEL OUTSIDE OF THE [place] IN LAST 30 DAYS: No - Related Data Allergies/Adverse Reactions: shellfish derived Allergy (Verified 11/23/19 13:35) Past Medical History - Past Medical History Cardiac Medical History: Reports: Hx Hypertension Denies: Hx Heart Attack Pulmonary Medical History: Reports: Hx Asthma Neurological Medical History: Denies: Hx Cerebrovascular Accident, Hx Seizures GI Medical History: Denies: Hx Hepatitis, Hx Hiatal Hernia, Hx Ulcer Infectious Medical History: Denies: Hx Hepatitis Past Surgical History: Reports: Hx Hysterectomy. Denies: Hx Mastectomy, Hx Open Heart Surgery, Hx Pacemaker Physical Exam - Respiratory Respiratory status: Labored, Tachypnea Breath sounds: Nonproductive cough, Rhonchi, Wheezing Doctor's Discharge - Discharge Referrals: BARRY PALMER MD [Primary Care Provider] - Follow up as needed
[2019-11-23] MEDS: ALBUTEROL SULFATE 0.083% NEB 2.5 MG/3 ML AMPUL NEB SCH ×2 (13:57→14:17)
--- NOTE | 2019-11-23 14:38 | ER Document Report ---
ED Respiratory Problem - General Chief Complaint: Breathing Difficulty Stated Complaint: WHEEZING Time Seen by Provider: 11/23/19 13:34 Primary Care Provider: BARRY PALMER MD [NO LOCAL MD] - Follow up as needed Mode of Arrival: Wheelchair Notes: Patient with known history of COPD complains of cough and shortness of breath. She stopped smoking approximately 2 months ago. She had similar symptoms about a month ago treated with oral prednisone. She has a history of hypertension but not heart disease. She is on oxygen at home. TRAVEL OUTSIDE OF THE [place] IN LAST 30 DAYS: No - Related Data Allergies/Adverse Reactions: shellfish derived Allergy (Verified 11/23/19 13:35) Past Medical History - General Information source: Patient - Social History Smoking Status: Former Smoker Family History: Reviewed & Not Pertinent Patient has suicidal ideation: No Patient has homicidal ideation: No - Past Medical History Cardiac Medical History: Reports: Hx Hypertension Denies: Hx Heart Attack Pulmonary Medical History: Reports: Hx Asthma Neurological Medical History: Denies: Hx Cerebrovascular Accident, Hx Seizures GI Medical History: Denies: Hx Hepatitis, Hx Hiatal Hernia, Hx Ulcer Infectious Medical History: Denies: Hx Hepatitis Past Surgical History: Reports: Hx Hysterectomy. Denies: Hx Mastectomy, Hx Open Heart Surgery, Hx Pacemaker Review of Systems - Review of Systems Cardiovascular: denies: Chest pain, Palpitations Respiratory: Cough. denies: Hemoptysis -: Yes All other systems reviewed and negative Physical Exam - Vital signs Vitals: Temp Pulse Resp BP Pulse Ox 97.4 F 87 32 H 176/52 H 97 11/23/19 13:40 11/23/19 13:40 11/23/19 13:40 11/23/19 13:40 11/23/19 13:40 - General General appearance: Appears well, Alert - HEENT Head: Normocephalic, Atraumatic Eyes: Normal Mucous membranes: Normal - Respiratory Respiratory status: Tachypnea Breath sounds: Rales, Wheezing - Cardiovascular Rhythm: Regular Heart sounds: Normal auscultation Murmur: No - Abdominal Inspection: Normal Tenderness: Nontender - Back Back: Normal - Extremities General upper extremity: Normal inspection, Normal ROM General lower extremity: Normal inspection, Normal ROM - Neurological Neuro grossly intact: Yes - Psychological Associated symptoms: Normal affect, Normal mood - Skin Skin Temperature: Warm Skin Moisture: Dry Course - Re-evaluation Re-evalutation: 11/23/19 14:55 EKG per me shows normal sinus rhythm at a rate of 88 with left atrial abnormality and left ventricular hypertrophy unchanged from previous EKG performed approximately a month ago on October 28, 2019. Mild artifact present today. 11/23/19 14:56 Patient given albuterol and Solu-Medrol without improvement of breathing. 11/23/19 15:41 LABS REVIEWED. CXR NAD PER RADIOLOGIST, C/W COPD. 11/23/19 16:47 Discussed case in detail with Nash roque, covering for Dr. Lopez. Will admit to [facility] [place] third-floor. Patient stable. - Vital Signs Vital signs: Temp Pulse Resp BP Pulse Ox 97.4 F 87 29 H 156/58 H 85 L 11/23/19 13:40 11/23/19 13:40 11/23/19 14:01 11/23/19 14:01 11/23/19 13:55 - Laboratory Result Diagrams: 11/23/19 14:20 11/23/19 14:20 Laboratory results interpreted by me: 11/23/19 11/23/19 14:20 14:20 RBC 3.57 L Hgb 10.4 L Hct 31.3 L RDW 15.9 H Lymph % (Auto) 12.9 L Seg Neutrophils % 80.3 H Carbon Dioxide 37 H Anion Gap 4 L Discharge - Discharge Clinical Impression: COPD exacerbation, Hypoxia Dyspnea Qualifiers: Dyspnea type: unspecified Qualified Code(s): R06.00 - Dyspnea, unspecified Condition: Stable Disposition: ADMITTED INPATIENT Admitting Provider: John (Hospitalist) Unit Admitted: [facility] [place] Referrals: BARRY PALMER MD [NO LOCAL MD] - Follow up as needed
[2019-11-23 14:47] LABS: ABSOLUTE LYMPHOCYTES (AUTO) 0.6 10^3/uL (0.5-4.7); ABSOLUTE MONOCYTES (AUTO) 0.3 10^3/uL (0.1-1.4); ABSOLUTE NEUT (AUTO) 3.6 10^3/uL (1.7-8.2); BASOPHILS % (AUTO) 0.6 % (0-2); EOSINOPHILS % (AUTO) 0.1 % (0-6); HEMATOCRIT 31.3 % (36.0-47.0); HEMOGLOBIN 10.4 g/dL (12.0-15.5); LYMPHOCYTES % (AUTO) 12.9 % (13-45); MEAN CORPUSCULAR HEMOGLOBIN 29.2 pg (27.0-33.4); MEAN CORPUSCULAR HGB CONC 33.3 g/dL (32.0-36.0); MEAN CORPUSCULAR VOLUME 88 fl (80-97); MONOCYTES % (AUTO) 6.1 % (3-13); PLATELET COUNT 190 10^3/uL (150-450); RED BLOOD COUNT 3.57 10^6/uL (3.72-5.28); RED CELL DISTRIBUTION WIDTH 15.9 % (11.5-14.0); SEGMENTED NEUTROPHILS % (AUTO) 80.3 % (42-78); TOTAL CELLS COUNTED % (AUTO) 100 %; WHITE BLOOD COUNT 4.5 10^3/uL (4.0-10.5)
--- NOTE | 2019-11-23 14:47 | RADIOLOGY REPORT (SQ) ---
EXAM DESCRIPTION: CHEST SINGLE VIEW COMPLETED DATE/TIME: 11/23/2019 2:31 pm REASON FOR STUDY: diff breathing COMPARISON: 10/28/2019 EXAM PARAMETERS: NUMBER OF VIEWS: One view. TECHNIQUE: Single frontal radiographic view of the chest acquired. RADIATION DOSE: NA LIMITATIONS: None. FINDINGS: LUNGS AND PLEURA: Hyperexpansion of the lungs. No infiltrate, effusion, or mass. MEDIASTINUM AND HILAR STRUCTURES: No masses. Contour normal. HEART AND VASCULAR STRUCTURES: Heart normal in size. Normal vasculature. BONES: Scoliosis. HARDWARE: None in the chest. OTHER: No other significant finding. IMPRESSION: Chronic lung changes with no acute cardiopulmonary findings. TECHNICAL DOCUMENTATION: JOB ID: [id number] [employer]- All Rights Reserved Reading location - IP/workstation name: [email or web address]
[2019-11-23 15:05] LABS: ALBUMIN 3.8 g/dL (3.5-5.0); ALKALINE PHOSPHATASE 75 U/L (38-126); ASPARTATE AMINO TRANSFERASE 20 U/L (14-36); BILIRUBIN,TOTAL 0.3 mg/dL (0.2-1.3); BLOOD UREA NITROGEN 19 mg/dL (7-20); CALCIUM 9.1 mg/dL (8.4-10.2); CARBON DIOXIDE 37 mmol/L (22-30); CHLORIDE 98 mmol/L (98-107); GLUCOSE 105 mg/dL (75-110); POTASSIUM 4.2 mmol/L (3.6-5.0)
[2019-11-23 15:09] LABS: ANION GAP 4 (5-19)
[2019-11-23 16:10] LABS: A TYPE INFLUENZA AG NEGATIVE (NEGATIVE); B INFLUENZA AG NEGATIVE (NEGATIVE)
[2019-11-23] MEDS ORDERED: ACETAMINOPHEN 325 MG TABLET PO PRN (17:15)
[2019-11-23] MEDS ORDERED: ONDANSETRON HCL INJ/PF 4 MG/2 ML SDV IV PRN (17:15)
[2019-11-23] MEDS ORDERED: MAG HYDROX/AL HYDROX/SIMETH SUSP 30 ML UDCUP PO PRN (17:15)
[2019-11-23] MEDS ORDERED: ONDANSETRON 4 MG TAB.RAPDIS PO PRN (17:15)
--- NOTE | 2019-11-23 17:37 | PDOC H&P ---
History of Present Illness Admission Date/PCP: 11/23/19 17:19 History of Present Illness: TERRI ARREDONDO is a 84 year old female who today had worsening shortness of breath. States it really started about 2 days ago when she has been using her home nebulizer just not getting any better. That she really did not want to be admitted today but she would come in and stay overnight but she wants to go home in the morning. Was just in the hospital and discharged on for the same problem. At that time she was in the hospital for 3 days for COPD exacerbation. She denies fever chills nausea vomiting or chest pain. She has done no recent traveling and she has not been exposed anyone else sick. This appears to be a COPD exacerbation with no suspicion for Covid 19. Past Medical History Cardiac Medical History: Reports: Hypertension Denies: Myocardial Infarction Pulmonary Medical History: Reports: Asthma Neurological Medical History: Denies: Seizures GI Medical History: Denies: Hepatitis, Hiatal Hernia Hematology: Reports: Anemia Denies: Sickle Cell Disease Past Surgical History Past Surgical History: Reports: Hysterectomy Denies: Amputation, Mastectomy, Pacemaker Social History Smoking Status: Former Smoker Frequency of Alcohol Use: None Hx Recreational Drug Use: No Hx Prescription Drug Abuse: No - Advance Directive Resuscitation Status: Full Code Family History Family History: Reviewed & Not Pertinent Parental Family History Reviewed: No Children Family History Reviewed: No Sibling(s) Family History Reviewed.: No Medication/Allergy Home Medications: Amlodipine Besylate [Norvasc 10 mg Tablet] 10 mg PO DAILY 06/15/14 Albuterol Sulfate [Proair HFA] 2 puff IH Q4 PRN 06/16/14 Fluticasone/Salmeterol [Advair 250-50 Diskus 14 Dose/Diskus] 1 inh IH Q12H 10/28/19 Hydrochlorothiazide [Hydrodiuril 12.5 mg Tablet] 12.5 mg PO DAILY 10/28/19 Ipratropium/Albuterol Sulfate [Combivent Respimat 4 gm Mdi] 1 puff IH Q6 10/28/19 Acetaminophen [Tylenol 325 mg Tablet] 650 mg PO Q4HP PRN tablet 10/30/19 Famotidine [Pepcid 20 mg Tablet] 20 mg PO Q12 #60 tablet 10/30/19 Ferrous Sulfate [Feosol 325 mg Tablet] 325 mg PO DAILY #30 tablet 10/30/19 Guaifenesin [Mucinex Sr 600 mg Tablet.sa] 600 mg PO Q12 #14 tablet.sa 10/30/19 Multivitamin [Tab-A-Desmond (Multiple Vitamin) Tablet] 1 tab PO DAILY #30 tablet 10/30/19 Prednisone [Deltasone 20 mg Tablet] 60 mg PO DAILY #12 tablet 10/30/19 Allergies/Adverse Reactions: shellfish derived Allergy (Verified 11/23/19 13:35) Review of Systems Constitutional: ABSENT: chills, fever(s), headache(s), weight gain, weight loss Cardiovascular: ABSENT: chest pain, dyspnea on exertion, edema, orthropnea, palpitations Respiratory: PRESENT: dyspnea. ABSENT: cough, hemoptysis Neurological: ABSENT: abnormal gait, abnormal speech, confusion, dizziness, focal weakness, syncope Psychiatric: ABSENT: anxiety, depression, homidical ideation, suicidal ideation Physical Exam Vital Signs: Temp Pulse Resp BP Pulse Ox 97.4 F 87 29 H 156/58 H 85 L 11/23/19 13:40 11/23/19 13:40 11/23/19 14:01 11/23/19 14:01 11/23/19 13:55 Intake & Output 11/22/19 11/23/19 11/24/19 06:59 06:59 06:59 Weight 49.4 kg General appearance: PRESENT: no acute distress, thin Respiratory exam: PRESENT: rhonchi Cardiovascular exam: PRESENT: RRR. ABSENT: diastolic murmur, rubs, systolic murmur Neurological exam: PRESENT: alert, awake, oriented to person, oriented to place, oriented to time, oriented to situation, CN II-XII grossly intact, other - Very much alert oriented. ABSENT: motor sensory deficit Psychiatric exam: PRESENT: appropriate affect, normal mood. ABSENT: homicidal ideation, suicidal ideation Results Laboratory Results: 11/23/19 14:20 11/23/19 14:20 11/23/19 11/23/19 14:20 14:20 WBC 4.5 RBC 3.57 L Hgb 10.4 L Hct 31.3 L MCV 88 MCH 29.2 MCHC 33.3 RDW 15.9 H Plt Count 190 Seg Neutrophils % 80.3 H Sodium 139.4 Potassium 4.2 Chloride 98 Carbon Dioxide 37 H Anion Gap 4 L BUN 19 Creatinine 0.67 Est GFR ( Amer) > 60 Glucose 105 Calcium 9.1 Magnesium 2.1 Total Bilirubin 0.3 AST 20 Alkaline Phosphatase 75 Total Protein 7.0 Albumin 3.8 11/23/19 14:20 Troponin I < 0.012 Impressions: Chest X-Ray 11/23/19 13:39 IMPRESSION: Chronic lung changes with no acute cardiopulmonary findings. Assessment and Plan - Diagnosis (1) Acute exacerbation of chronic obstructive pulmonary disease (COPD) Is this a current diagnosis for this admission?: Yes (2) Dyspnea Qualifiers: Dyspnea type: unspecified Qualified Code(s): R06.00 - Dyspnea, unspecified Is this a current diagnosis for this admission?: Yes (3) Hypoxia Is this a current diagnosis for this admission?: Yes (4) Hypertension Is this a current diagnosis for this admission?: Yes - Plan Summary Summary: Admit her for pretty much the same thing she had 3 weeks ago which is IV steroids, nebulizer, watch her overnight and discharge her in the morning. Negative flu swab. BNP is pending but I doubt this is the cause of her problem - Time Time Spent with patient: 35 or more minutes
[2019-11-23] MEDS: DOCUSATE SODIUM 100 MG CAPSULE PO SCH (18:50)
[2019-11-23 19:37] LABS: APPEARANCE,URINE CLOUDY; BILIRUBIN,URINE NEGATIVE (NEGATIVE); COLOR,URINE YELLOW; GLUCOSE, URINE NEGATIVE (NEGATIVE); KETONES,URINE NEGATIVE (NEGATIVE); PROTEIN,URINE NEGATIVE (NEGATIVE); URINE SPECIFIC GRAVITY 1.018
[2019-11-23] MEDS: IPRATROPIUM/ALBUTEROL 0.5-2.5 MG/3 ML AMPUL NEB SCH (20:20)
[2019-11-23] MEDS: METHYLPREDNISOLONE INJ 40 MG/1 ML SDV IV SCH (21:10)
--- NOTE | 2019-11-23 21:31 | EKG REPORT ---
SEVERITY:- ABNORMAL ECG - SINUS RHYTHM PROBABLE LEFT ATRIAL ABNORMALITY LEFT VENTRICULAR HYPERTROPHY LATERAL INFARCT, AGE INDETERMINATE : Confirmed by: David Rocha MD 23-Nov-2019 21:31:06
[2019-11-24 05:40] LABS: HEMATOCRIT 29.8 % (36.0-47.0); HEMOGLOBIN 9.7 g/dL (12.0-15.5); MEAN CORPUSCULAR HEMOGLOBIN 28.3 pg (27.0-33.4); MEAN CORPUSCULAR HGB CONC 32.5 g/dL (32.0-36.0); MEAN CORPUSCULAR VOLUME 87 fl (80-97); PLATELET COUNT 182 10^3/uL (150-450); RED BLOOD COUNT 3.43 10^6/uL (3.72-5.28); RED CELL DISTRIBUTION WIDTH 15.4 % (11.5-14.0)
[2019-11-24 06:15] LABS: ANION GAP 7 (5-19); BLOOD UREA NITROGEN 25 mg/dL (7-20); CALCIUM 9.2 mg/dL (8.4-10.2); CARBON DIOXIDE 32 mmol/L (22-30); CHLORIDE 99 mmol/L (98-107); GLUCOSE 157 mg/dL (75-110); POTASSIUM 4.1 mmol/L (3.6-5.0)
[2019-11-24 06:16] LABS: WHITE BLOOD COUNT 17.8 10^3/uL (4.0-10.5)
[2019-11-24 06:18] LABS: BASOPHILS % (MANUAL) 0 % (0-2); EOSINOPHILS % (MANUAL) 0 % (0-6); LYMPHOCYTES % (MANUAL) 0 % (13-45); MONOCYTES % (MANUAL) 0 % (3-13); SEGMENTED NEUTROPHILS % (MAN) 100 % (42-78); TOTAL CELLS COUNTED 100
[2019-11-24 06:21] LABS: ANISOCYTOSIS SLIGHT; OVALOCYTES SLIGHT; PLATELET COMMENT ADEQUATE; TEAR DROP CELLS SLIGHT
[2019-11-24] MEDS: IPRATROPIUM/ALBUTEROL 0.5-2.5 MG/3 ML AMPUL NEB SCH ×4 (08:06→19:46)
[2019-11-24] MEDS: HYDROCHLOROTHIAZIDE 12.5 MG TABLET PO SCH (08:55)
[2019-11-24] MEDS: DOCUSATE SODIUM 100 MG CAPSULE PO SCH (09:17)
[2019-11-24] MEDS: ENOXAPARIN SODIUM INJ 40 MG/0.4 ML DISP.SYRIN SUBCUT SCH (09:17)
[2019-11-24] MEDS: METHYLPREDNISOLONE INJ 40 MG/1 ML SDV IV SCH ×2 (09:17→21:11)
[2019-11-24] MEDS: HYDRALAZINE HCL INJ/PF 20 MG/1 ML SDV IV PRN (09:18)
--- NOTE | 2019-11-24 14:35 | PDOC PROGRESS REPORT ---
Subjective Progress Note for:: 11/24/19 Subjective:: No adverse events overnight. No new complaints. She wants to know if she can go home today. She is currently on 2 L of oxygen. She has not gotten out of bed yet. Reason For Visit: COPD EXAVERBATION, ANEMIA, HYPERTENSION Physical Exam Vital Signs: Temp Pulse Resp BP Pulse Ox 97.8 F 85 18 155/56 H 100 11/24/19 11:51 11/24/19 12:04 11/24/19 12:04 11/24/19 11:51 11/24/19 12:04 Intake & Output 11/23/19 11/24/19 11/25/19 06:59 06:59 06:59 Intake Total 100 Output Total 0 Balance 100 Weight 49.4 kg General appearance: PRESENT: no acute distress, cooperative, disheveled, thin Respiratory exam: PRESENT: decreased breath sounds, rhonchi, symmetrical, unlabored. ABSENT: accessory muscle use, chest wall tenderness, prolonged expiratory phas, rales, tachypnea, wheezes Cardiovascular exam: PRESENT: RRR, +S1, +S2 Pulses: PRESENT: normal carotid pulses Vascular exam: PRESENT: normal capillary refill GI/Abdominal exam: PRESENT: normal bowel sounds, soft. ABSENT: distended, guarding, rebound, tenderness Extremities exam: ABSENT: clubbing, pedal edema Musculoskeletal exam: PRESENT: normal inspection. ABSENT: deformity Neurological exam: PRESENT: awake, oriented to person, oriented to place, o riented to situation Psychiatric exam: PRESENT: appropriate affect, normal mood Skin exam: PRESENT: dry, warm Results Laboratory Results: 11/24/19 04:52 11/24/19 04:52 11/23/19 11/23/19 11/23/19 14:20 14:20 19:10 WBC 4.5 RBC 3.57 L Hgb 10.4 L Hct 31.3 L MCV 88 MCH 29.2 MCHC 33.3 RDW 15.9 H Plt Count 190 Seg Neutrophils % 80.3 H Sodium 139.4 Potassium 4.2 Chloride 98 Carbon Dioxide 37 H Anion Gap 4 L BUN 19 Creatinine 0.67 Est GFR ( Amer) > 60 Glucose 105 Calcium 9.1 Magnesium 2.1 Total Bilirubin 0.3 AST 20 Alkaline Phosphatase 75 Total Protein 7.0 Albumin 3.8 Urine Color YELLOW Urine Appearance CLOUDY Urine pH 5.0 Ur Specific [place] 1.018 Urine Protein NEGATIVE Urine Glucose (UA) NEGATIVE Urine Ketones NEGATIVE Urine Blood SMALL H Urine RBC (Auto) 4 11/24/19 11/24/19 04:52 04:52 WBC 17.8 H D RBC 3.43 L Hgb 9.7 L Hct 29.8 L MCV 87 MCH 28.3 MCHC 32.5 RDW 15.4 H Plt Count 182 Seg Neutrophils % Not Reportable Sodium 138.4 Potassium 4.1 Chloride 99 Carbon Dioxide 32 H Anion Gap 7 BUN 25 H Creatinine 0.55 Est GFR ( Amer) > 60 Glucose 157 H Calcium 9.2 Magnesium Total Bilirubin AST Alkaline Phosphatase Total Protein Albumin Urine Color Urine Appearance Urine pH Ur Specific [place] Urine Protein Urine Glucose (UA) Urine Ketones Urine Blood Urine RBC (Auto) 11/23/19 11/23/19 14:20 14:20 Troponin I < 0.012 NT-Pro-B Natriuret Pep 117 Impressions: Chest X-Ray 11/23/19 13:39 IMPRESSION: Chronic lung changes with no acute cardiopulmonary findings. Assessment and Plan - Diagnosis (1) Acute exacerbation of chronic obstructive pulmonary disease (COPD) Is this a current diagnosis for this admission?: Yes Plan: Responding to steroids, antibiotics, and bronchodilators, continue current therapy. Have ordered this physical therapy evaluation. (2) Hypoxia Is this a current diagnosis for this admission?: Yes Plan: Currently stable on 2 L nasal cannula. I believe this is what she is on at home. (3) Acute and chronic respiratory failure Qualifiers: Respiratory failure complication: hypoxia and hypercapnia Qualified Code(s): J96.21 - Acute and chronic respiratory failure with hypoxia; J96.22 - Acute and chronic respiratory failure with hypercapnia Is this a current diagnosis for this admission?: Yes Plan: Currently stable on 2 L nasal cannula. This was due to her COPD exacerbation. - Plan Summary Summary: Admit her for pretty much the same thing she had 3 weeks ago which is IV steroids, nebulizer, watch her overnight and discharge her in the morning. Negative flu swab. BNP is pending but I doubt this is the cause of her problem - Time Time Spent with patient: 15-24 minutes
[2019-11-25] MEDS: HYDRALAZINE HCL INJ/PF 20 MG/1 ML SDV IV PRN (04:30)
[2019-11-25] MEDS: IPRATROPIUM/ALBUTEROL 0.5-2.5 MG/3 ML AMPUL NEB SCH ×4 (07:46→20:01)
[2019-11-25] MEDS: HYDROCHLOROTHIAZIDE 12.5 MG TABLET PO SCH (09:55)
[2019-11-25] MEDS: DOCUSATE SODIUM 100 MG CAPSULE PO SCH (09:56)
[2019-11-25] MEDS: ENOXAPARIN SODIUM INJ 40 MG/0.4 ML DISP.SYRIN SUBCUT SCH (09:56)
[2019-11-25] MEDS: METHYLPREDNISOLONE INJ 40 MG/1 ML SDV IV SCH ×2 (09:56→22:00)
--- NOTE | 2019-11-25 15:47 | PDOC PROGRESS REPORT ---
Subjective Progress Note for:: 11/25/19 Subjective:: No adverse events overnight. Stable on 2 L nasal cannula. She got up and walked around some today with physical therapy, and did better than she did on previous days, but she still was not very steady on her feet. She moves very slowly with a walker. Reason For Visit: COPD EXAVERBATION, ANEMIA, HYPERTENSION Physical Exam Vital Signs: Temp Pulse Resp BP Pulse Ox 97.7 F 78 16 125/43 L 98 11/25/19 08:37 11/25/19 11:20 11/25/19 11:20 11/25/19 08:37 11/25/19 11:20 Intake & Output 11/24/19 11/25/19 11/26/19 06:59 06:59 06:59 Intake Total 100 683 Output Total 0 100 Balance 100 583 Weight 49.4 kg 42.5 kg General appearance: PRESENT: no acute distress, cooperative, disheveled, thin Respiratory exam: PRESENT: decreased breath sounds, rhonchi, symmetrical, unlabored. ABSENT: accessory muscle use, chest wall tenderness, prolonged expiratory phas, rales, tachypnea, wheezes Cardiovascular exam: PRESENT: RRR, +S1, +S2 Pulses: PRESENT: normal carotid pulses Vascular exam: PRESENT: normal capillary refill GI/Abdominal exam: PRESENT: normal bowel sounds, soft. ABSENT: distended, guarding, rebound, tenderness Extremities exam: ABSENT: clubbing, pedal edema Musculoskeletal exam: PRESENT: normal inspection. ABSENT: deformity Neurological exam: PRESENT: awake, oriented to person, oriented to place, oriented to situation Psychiatric exam: PRESENT: appropriate affect, normal mood Skin exam: PRESENT: dry, warm Results Laboratory Results: 11/24/19 04:52 11/24/19 04:52 11/23/19 11/23/19 14:20 14:20 Troponin I < 0.012 NT-Pro-B Natriuret Pep 117 Impressions: Chest X-Ray 11/23/19 13:39 IMPRESSION: Chronic lung changes with no acute cardiopulmonary findings. Assessment and Plan - Diagnosis (1) Acute exacerbation of chronic obstructive pulmonary disease (COPD) Is this a current diagnosis for this admission?: Yes Plan: Responding to steroids, antibiotics, and bronchodilators, continue current therapy. Will likely need correction facility placement per physical therapy. (2) Hypoxia Is this a current diagnosis for this admission?: Yes Plan: Currently stable on 2 L nasal cannula. I believe this is what she is on at home. (3) Acute and chronic respiratory failure Qualifiers: Respiratory failure complication: hypoxia and hypercapnia Qualified Code(s): J96.21 - Acute and chronic respiratory failure with hypoxia; J96.22 - Acute and chronic respiratory failure with hypercapnia Is this a current diagnosis for this admission?: Yes Plan: Currently stable on 2 L nasal cannula. This was due to her COPD exacerbation. - Plan Summary Summary: Admit her for pretty much the same thing she had 3 weeks ago which is IV steroids, nebulizer, watch her overnight and discharge her in the morning. Negative flu swab. BNP is pending but I doubt this is the cause of her problem - Time Time Spent with patient: 15-24 minutes
[2019-11-26] MEDS: IPRATROPIUM/ALBUTEROL 0.5-2.5 MG/3 ML AMPUL NEB SCH ×4 (07:28→19:52)
[2019-11-26 08:50] LABS: ABSOLUTE LYMPHOCYTES (AUTO) 0.5 10^3/uL (0.5-4.7); ABSOLUTE MONOCYTES (AUTO) 0.3 10^3/uL (0.1-1.4); ABSOLUTE NEUT (AUTO) 7.6 10^3/uL (1.7-8.2); BASOPHILS % (AUTO) 0.1 % (0-2); HEMATOCRIT 30.7 % (36.0-47.0); HEMOGLOBIN 10.2 g/dL (12.0-15.5); LYMPHOCYTES % (AUTO) 5.6 % (13-45); MEAN CORPUSCULAR HEMOGLOBIN 28.8 pg (27.0-33.4); MEAN CORPUSCULAR HGB CONC 33.1 g/dL (32.0-36.0); MEAN CORPUSCULAR VOLUME 87 fl (80-97); MONOCYTES % (AUTO) 3.4 % (3-13); PLATELET COUNT 206 10^3/uL (150-450); RED BLOOD COUNT 3.53 10^6/uL (3.72-5.28); RED CELL DISTRIBUTION WIDTH 15.8 % (11.5-14.0); SEGMENTED NEUTROPHILS % (AUTO) 90.9 % (42-78); TOTAL CELLS COUNTED % (AUTO) 100 %; WHITE BLOOD COUNT 8.3 10^3/uL (4.0-10.5)
--- NOTE | 2019-11-26 08:56 | PDOC PROGRESS REPORT ---
Subjective Progress Note for:: 11/26/19 Subjective:: 84 year old female who today had worsening shortness of breath. States it really started about 2 days ago when she has been using her home nebulizer just not getting any better. That she really did not want to be admitted today but she would come in and stay overnight but she wants to go home in the morning. Was just in the hospital and discharged on for the same problem. At that time she was in the hospital for 3 days for COPD exacerbation. She denies fever chills nausea vomiting or chest pain. She has done no recent traveling and she has not been exposed anyone else sick. This appears to be a COPD exacerbation with no suspicion for Covid 19. 11/24/19-No adverse events overnight. No new complaints. She wants to know if she can go home today. She is currently on 2 L of oxygen. She has not gotten out of bed yet. 11/25/19-No adverse events overnight. Stable on 2 L nasal cannula. She got up and walked around some today with physical therapy, and did better than she did on previous days, but she still was not very steady on her feet. She moves very slowly with a walker. 11/26/2019-no acute events in the last 24 hours. Patient is still on oxygen supplementation. Expressing desire to go home once is stable. As per the patient she lives with her grandson. Uses walker at home. Physical therapy is working with the patient. Reason For Visit: COPD EXAVERBATION, ANEMIA, HYPERTENSION Physical Exam Vital Signs: Temp Pulse Resp BP Pulse Ox 97.7 F 59 L 18 148/64 H 96 11/26/19 03:28 11/26/19 07:00 11/26/19 03:28 11/26/19 03:28 11/26/19 04:49 Intake & Output 11/25/19 11/26/19 11/27/19 06:59 06:59 06:59 Intake Total 683 300 Output Total 100 Balance 583 300 Weight 42.5 kg 43.5 kg General appearance: PRESENT: cooperative, thin Head exam: PRESENT: atraumatic Eye exam: PRESENT: PERRLA Mouth exam: PRESENT: neck supple Teeth exam: PRESENT: poor dentation Neck exam: ABSENT: carotid bruit, JVD, lymphadenopathy, thyromegaly Respiratory exam: PRESENT: decreased breath sounds Cardiovascular exam: PRESENT: RRR. ABSENT: diastolic murmur, rubs, systolic murmur GI/Abdominal exam: PRESENT: normal bowel sounds, soft. ABSENT: distended, guarding, mass, organolmegaly, rebound, tenderness Rectal exam: PRESENT: deferred Extremities exam: PRESENT: full ROM. ABSENT: calf tenderness, clubbing, pedal edema Neurological exam: PRESENT: alert, awake, oriented to person, oriented to place, oriented to time, oriented to situation, CN II-XII grossly intact. ABSENT: motor sensory deficit Psychiatric exam: PRESENT: appropriate affect, normal mood. ABSENT: homicidal ideation, suicidal ideation Results Laboratory Results: 11/23/19 11/23/19 14:20 14:20 Troponin I < 0.012 NT-Pro-B Natriuret Pep 117 Impressions: Chest X-Ray 11/23/19 13:39 IMPRESSION: Chronic lung changes with no acute cardiopulmonary findings. Assessment and Plan - Diagnosis (1) Acute exacerbation of chronic obstructive pulmonary disease (COPD) Is this a current diagnosis for this admission?: Yes Plan: Responding to steroids, antibiotics, and bronchodilators, continue current therapy. Will likely need [facility] facility [facility] per physical therapy. 11/26/2019-pulse ox today is 96% on 2 L. Comfortable in the bed communicating well. Expressing desire to go home once is stable. Plan is to decrease IV Solu-Medrol from 40 mg twice a day to once a day. Patient is presently off the antibiotics. To continue nebulizer treatments. Today's labs are pending. (2) Hypoxia Is this a current diagnosis for this admission?: Yes Plan: Currently stable on 2 L nasal cannula. I believe this is what she is on at home. 11/26/2019-patient admitted with acute on chronic respiratory failure with hypoxia. Resolving. Pulse ox is 96% on 2 L this morning. Plan is to decrease IV Solu-Medrol from 40 mg every 12 to daily and to continue nebulizer treatments. To check for home oxygen requirements. (3) Acute and chronic respiratory failure Qualifiers: Respiratory failure complication: hypoxia and hypercapnia Qualified Code(s): J96.21 - Acute and chronic respiratory failure with hypoxia; J96.22 - Acute and chronic respiratory failure with hypercapnia Is this a current diagnosis for this admission?: Yes Plan: Currently stable on 2 L nasal cannula. This was due to her COPD exacerbation. 11/26/2019-patient admitted with acute on chronic respiratory failure with hypoxia hypercapnia resolving. Pulse ox 96% on 2 L today. Plan is to continue IV Solu-Medrol and oxygen supplementation, nebulizer treatments. To check for home oxygen requirements. (4) Protein-energy malnutrition Is this a current diagnosis for this admission?: Yes Plan: 11/26/2019-patient BMI is less than 19. Cachectic. On examination wasting of the temporal muscles, deltoid muscles, quadriceps muscles seen. Dietary consult will be requested. Nutrition supplementations will be provided. (5) Anemia Qualifiers: Anemia type: unspecified type Qualified Code(s): D64.9 - Anemia, unspecified Is this a current diagnosis for this admission?: No Plan: 11/26/2019-patient has history of anemia of chronic disease. Latest hemoglobin is 9.7. (6) Hypertension Is this a current diagnosis for this admission?: No Plan: 11/26/2019-patient has history of chronic essential hypertension blood pressure today is 142/57. Stable. - Plan Summary Summary: Admit her for pretty much the same thing she had 3 weeks ago which is IV steroids, nebulizer, watch her overnight and discharge her in the morning. Negative flu swab. BNP is pending but I doubt this is the cause of her problem
[2019-11-26 09:30] LABS: ALBUMIN 3.6 g/dL (3.5-5.0); ALKALINE PHOSPHATASE 71 U/L (38-126); ASPARTATE AMINO TRANSFERASE 18 U/L (14-36); BILIRUBIN,DIRECT 0.3 mg/dL (0.0-0.4); BILIRUBIN,TOTAL 0.5 mg/dL (0.2-1.3); BLOOD UREA NITROGEN 34 mg/dL (7-20); CALCIUM 9.1 mg/dL (8.4-10.2); CARBON DIOXIDE 34 mmol/L (22-30); CHLORIDE 99 mmol/L (98-107); GLUCOSE 108 mg/dL (75-110); POTASSIUM 4.9 mmol/L (3.6-5.0); TOTAL PROTEIN 6.9 g/dL (6.3-8.2)
[2019-11-26 09:42] LABS: ANION GAP 4 (5-19)
[2019-11-26] MEDS ORDERED: METHYLPREDNISOLONE INJ 40 MG/1 ML SDV IV SCH (10:00)
[2019-11-26] MEDS: HYDROCHLOROTHIAZIDE 12.5 MG TABLET PO SCH (10:25)
[2019-11-26] MEDS: DOCUSATE SODIUM 100 MG CAPSULE PO SCH (10:25)
[2019-11-26] MEDS: ENOXAPARIN SODIUM INJ 40 MG/0.4 ML DISP.SYRIN SUBCUT SCH ×2 (10:26→10:33)
[2019-11-27 08:29] VITALS: BP 167/55
[2019-11-27] MEDS: IPRATROPIUM/ALBUTEROL 0.5-2.5 MG/3 ML AMPUL NEB SCH ×3 (08:45→16:00)
[2019-11-27] MEDS ORDERED: PREDNISONE 10 MG TABLET PO SCH (10:00)
--- NOTE | 2019-11-27 10:36 | PDOC DISCHARGE SUMMARY ---
Impression - Admit/DC Date/PCP Admission Date/Primary Care Provider: 11/23/19 17:19 Discharge Date: 11/27/19 - Discharge Diagnosis (1) Acute exacerbation of chronic obstructive pulmonary disease (COPD) Is this a current diagnosis for this admission?: Yes (2) Hypoxia Is this a current diagnosis for this admission?: Yes (3) Acute and chronic respiratory failure Is this a current diagnosis for this admission?: Yes (4) Protein-energy malnutrition Is this a current diagnosis for this admission?: Yes (5) Anemia Is this a current diagnosis for this admission?: No (6) Hypertension Is this a current diagnosis for this admission?: No - Assessment Summary: Admit her for pretty much the same thing she had 3 weeks ago which is IV steroids, nebulizer, watch her overnight and discharge her in the morning. Negative flu swab. BNP is pending but I doubt this is the cause of her problem (1) Acute exacerbation of chronic obstructive pulmonary disease (COPD) Is this a current diagnosis for this admission?: Yes Plan: Responding to steroids, antibiotics, and bronchodilators, continue current ther apy. Will likely need fdc facility placement per physical therapy. 11/26/2019-pulse ox today is 96% on 2 L. Comfortable in the bed communicating well. Expressing desire to go home once is stable. Plan is to decrease IV Solu-Medrol from 40 mg twice a day to once a day. Patient is presently off the antibiotics. To continue nebulizer treatments. Today's labs are pending. 11/27/2019-patient admitted with acute exacerbation of COPD. Acute exacerbation resolved. Pulse ox is 95% on 2 L. Patient is already on home oxygen. Going home with home health. Prescription for prednisone 10 mg p.o. twice daily for 7 days. (2) Hypoxia Is this a current diagnosis for this admission?: Yes Plan: Currently stable on 2 L nasal cannula. I believe this is what she is on at home. 11/26/2019-patient admitted with acute on chronic respiratory failure with hypoxia. Resolving. Pulse ox is 96% on 2 L this morning. Plan is to decrease IV Solu-Medrol from 40 mg every 12 to daily and to continue nebulizer treatments. To check for home oxygen requirements. 0-patient admitted with acute exacerbation COPD with hypoxia. Hypoxia is resolved. Pulse ox is 95% on 2 L. Patient is on home oxygen 2 L via nasal cannula. She is going home with home health. (3) Acute and chronic respiratory failure Qualifiers: Respiratory failure complication: hypoxia and hypercapnia Qualified Code(s): J96.21 - Acute and chronic respiratory failure with hypoxia; J96.22 - Acute and chronic respiratory failure with hypercapnia Is this a current diagnosis for this admission?: Yes Plan: Currently stable on 2 L nasal cannula. This was due to her COPD exacerbation. 11/26/2019-patient admitted with acute on chronic respiratory failure with hypoxia hypercapnia resolving. Pulse ox 96% on 2 L today. Plan is to continue IV Solu-Medrol and oxygen supplementation, nebulizer treatments. To check for home oxygen requirements. 11/27/19-patient admitted with acute on chronic respiratory failure secondary to COPD exacerbation resolved. (4) Protein-energy malnutrition Is this a current diagnosis for this admission?: Yes Plan: 11/26/2019-patient BMI is less than 19. Cachectic. On examination wasting of the temporal muscles, deltoid muscles, quadriceps muscles seen. Dietary consult will be requested. Nutrition supplementations will be provided. (5) Anemia Qualifiers: Anemia type: unspecified type Qualified Code(s): D64.9 - Anemia, unspecified Is this a current diagnosis for this admission?: No Plan: 11/26/2019-patient has history of anemia of chronic disease. Latest hemoglobin is 9.7. 0-patient has history of anemia of chronic disease latest hemoglobin is 10.2. Stable. (6) Hypertension Is this a current diagnosis for this admission?: No Plan: 11/26/2019-patient has history of chronic essential hypertension blood pressure today is 142/57. Stable. 10/29/2019-blood pressure today is 178/83. Patient is advised to continue her home medications. Presently on hydrochlorothiazide 12.5 mg p.o. daily, amlodipine 10 mg p.o. daily, Diovan 160 mg p.o. daily. - Additional Information Resuscitation Status: Full Code Discharge Diet: Cardiac Discharge Activity: Activity As Tolerated Referrals: [facility] [Provider Group] - 12/01/19 2:00 pm () Prescriptions: Prednisone [Deltasone 10 mg Tablet] 10 mg PO BID 7 Days #14 tablet Home Medications: Amlodipine Besylate [Norvasc 10 mg Tablet] 10 mg PO DAILY 06/15/14 Albuterol Sulfate [Proair HFA] 2 puff IH Q4HP PRN 06/16/14 Hydrochlorothiazide [Hydrodiuril 12.5 mg Tablet] 12.5 mg PO DAILY 10/28/19 Ferrous Sulfate [Feosol 325 mg Tablet] 325 mg PO DAILY #30 tablet 10/30/19 Multivitamin [Tab-A-Desmond (Multiple Vitamin) Tablet] 1 tab PO DAILY #30 tablet 10/30/19 Citalopram Hydrobromide [Citalopram HBr] 10 mg PO DAILY 11/24/19 Ferrous Sulfate [Feosol 325 mg Tablet] 325 mg PO DAILY 11/24/19 Fluticasone/Salmeterol [Advair 250-50 Diskus 14 Dose/Diskus] 1 inh IH Q12H 11/24/19 Ipratropium/Albuterol Sulfate [Combivent Respimat 4 gm Mdi] 1 puff IH Q6 11/24/19 Valsartan [Diovan] 320 mg PO DAILY 11/24/19 Prednisone [Deltasone 10 mg Tablet] 10 mg PO BID 7 Days #14 tablet 11/27/19 History of Present Illiness History of Present Illness: TERRI ARREDONDO is a 84 year old female 84 year old female who today had worsening shortness of breath. States it really started about 2 days ago when she has been using her home nebulizer just not getting any better. That she really did not want to be admitted today but she would come in and stay overnight but she wants to go home in the morning. Was just in the hospital and discharged on for the same problem. At that time she was in the hospital for 3 days for COPD exacerbation. She denies fever chills nausea vomiting or chest pain. She has done no recent traveling and she has not been exposed anyone else sick. This appears to be a COPD exacerbation with no suspicion for Covid 19. Hospital Course Hospital Course: 84 year old female who today had worsening shortness of breath. States it really started about 2 days ago when she has been using her home nebulizer just not getting any better. That she really did not want to be admitted today but she would come in and stay overnight but she wants to go home in the morning. Was just in the hospital and discharged on for the same problem. At that time she was in the hospital for 3 days for COPD exacerbation. She denies fever chills nausea vomiting or chest pain. She has done no recent traveling and she has not been exposed anyone else sick. This appears to be a COPD exacerbation with no suspicion for Covid 19. 11/24/19-No adverse events overnight. No new complaints. She wants to know if she can go home today. She is currently on 2 L of oxygen. She has not gotten out of bed yet. 11/25/19-No adverse events overnight. Stable on 2 L nasal cannula. She got up and walked around some today with physical therapy, and did better than she did on previous days, but she still was not very steady on her feet. She moves very slowly with a walker. 11/26/2019-no acute events in the last 24 hours. Patient is still on oxygen supplementation. Expressing desire to go home once is stable. As per the patient she lives with her grandson. Uses walker at home. Physical therapy is working with the patient. 2720-no acute events in the last 24 hours. Afebrile. Comfortably in the bed sleeping. Patient is going home with home health. Physical Exam Vital Signs: Temp Pulse Resp BP Pulse Ox 97.3 F 71 16 167/55 H 98 11/27/19 08:03 11/27/19 08:45 11/27/19 08:45 11/27/19 08:03 11/27/19 08:45 Intake & Output 11/26/19 11/27/19 11/28/19 06:59 06:59 06:59 Intake Total 300 1171 Output Total 100 Balance 300 1071 Weight 43.5 kg 43.9 kg General appearance: PRESENT: disheveled, thin Head exam: PRESENT: atraumatic Eye exam: PRESENT: PERRLA Mouth exam: PRESENT: moist, tongue midline Teeth exam: PRESENT: poor dentation Neck exam: ABSENT: carotid bruit, JVD, lymphadenopathy, thyromegaly Respiratory exam: PRESENT: decreased breath sounds Cardiovascular exam: PRESENT: RRR. ABSENT: diastolic murmur, rubs, systolic murmur GI/Abdominal exam: PRESENT: normal bowel sounds, soft. ABSENT: distended, guarding, mass, organolmegaly, rebound, tenderness Rectal exam: PRESENT: deferred Extremities exam: PRESENT: full ROM. ABSENT: calf tenderness, clubbing, pedal edema Neurological exam: PRESENT: alert, awake, oriented to person, oriented to place, oriented to time, oriented to situation, CN II-XII grossly intact. ABSENT: motor sensory deficit Psychiatric exam: PRESENT: appropriate affect, normal mood. ABSENT: homicidal ideation, suicidal ideation Results Laboratory Results: WBC 8.3 10^3/uL (4.0-10.5) 11/26/19 08:31 RBC 3.53 10^6/uL (3.72-5.28) L 11/26/19 08:31 Hgb 10.2 g/dL (12.0-15.5) L 11/26/19 08:31 Hct 30.7 % (36.0-47.0) L 11/26/19 08:31 MCV 87 fl (80-97) 11/26/19 08:31 MCH 28.8 pg (27.0-33.4) 11/26/19 08:31 MCHC 33.1 g/dL (32.0-36.0) 11/26/19 08:31 RDW 15.8 % (11.5-14.0) H 11/26/19 08:31 Plt Count 206 10^3/uL (150-450) 11/26/19 08:31 Lymph % (Auto) 5.6 % (13-45) L 11/26/19 08:31 Bates % (Auto) 3.4 % (3-13) 11/26/19 08:31 Eos % (Auto) 0.0 % (0-6) 11/26/19 08:31 Baso % (Auto) 0.1 % (0-2) 11/26/19 08:31 Absolute Neuts (auto) 7.6 10^3/uL (1.7-8.2) 11/26/19 08:31 Absolute Lymphs (auto) 0.5 10^3/uL (0.5-4.7) 11/26/19 08:31 Absolute Monos (auto) 0.3 10^3/uL (0.1-1.4) 11/26/19 08:31 Absolute Eos (auto) 0.0 10^3/uL (0.0-0.6) 11/26/19 08:31 Absolute Basos (auto) 0.0 10^3/uL (0.0-0.2) 11/26/19 08:31 Total Counted 100 11/24/19 04:52 Seg Neutrophils % 90.9 % (42-78) H 11/26/19 08:31 Seg Neuts % (Manual) 100 % (42-78) H 11/24/19 04:52 Lymphocytes % (Manual) 0 % (13-45) L 11/24/19 04:52 Monocytes % (Manual) 0 % (3-13) L 11/24/19 04:52 Eosinophils % (Manual) 0 % (0-6) 11/24/19 04:52 Basophils % (Manual) 0 % (0-2) 11/24/19 04:52 Abs Neuts (Manual) 17.8 10^3/uL (1.7-8.2) H 11/24/19 04:52 Abs Lymphs (Manual) 0.0 10^3/uL (0.5-4.7) L 11/24/19 04:52 Abs Monocytes (Manual) 0.0 10^3/uL (0.1-1.4) L 11/24/19 04:52 Absolute Eos (Manual) 0.0 10^3/uL (0.0-0.6) 11/24/19 04:52 Abs Basophils (Manual) 0.0 10^3/uL (0.0-0.2) 11/24/19 04:52 Platelet Comment ADEQUATE 11/24/19 04:52 Anisocytosis SLIGHT 11/24/19 04:52 Tear Drop Cells SLIGHT 11/24/19 04:52 Ovalocytes SLIGHT 11/24/19 04:52 Sodium 137.4 mmol/L (137-145) 11/26/19 08:31 Potassium 4.9 mmol/L (3.6-5.0) 11/26/19 08:31 Chloride 99 mmol/L (98-107) 11/26/19 08:31 Carbon Dioxide 34 mmol/L (22-30) H 11/26/19 08:31 Anion Gap 4 (5-19) L 11/26/19 08:31 BUN 34 mg/dL (7-20) H 11/26/19 08:31 Creatinine 0.76 mg/dL (0.52-1.25) 11/26/19 08:31 Est GFR ( Amer) > 60 (>60) 11/26/19 08:31 Est GFR (MDRD) Non-Af > 60 (>60) 11/26/19 08:31 Glucose 108 mg/dL (75-110) 11/26/19 08:31 Calcium 9.1 mg/dL (8.4-10.2) 11/26/19 08:31 Magnesium 2.5 mg/dL (1.6-2.3) H 11/26/19 08:31 Total Bilirubin 0.5 mg/dL (0.2-1.3) 11/26/19 08:31 Direct Bilirubin 0.3 mg/dL (0.0-0.4) 11/26/19 08:31 Neonat Total Bilirubin Not Reportable 11/26/19 08:31 Neonat Direct Bilirubin Not Reportable 11/26/19 08:31 Neonat Indirect Bili Not Reportable 11/26/19 08:31 AST 18 U/L (14-36) 11/26/19 08:31 ALT 14 U/L (<35) 11/26/19 08:31 Alkaline Phosphatase 71 U/L (38-126) 11/26/19 08:31 Troponin I < 0.012 ng/mL 11/23/19 14:20 NT-Pro-B Natriuret Pep 117 pg/mL (<450) 11/23/19 14:20 Total Protein 6.9 g/dL (6.3-8.2) 11/26/19 08:31 Albumin 3.6 g/dL (3.5-5.0) 11/26/19 08:31 Urine Color YELLOW 11/23/19 19:10 Urine Appearance CLOUDY 11/23/19 19:10 Urine pH 5.0 (5.0-9.0) 11/23/19 19:10 Ur Specific [place] 1.018 11/23/19 19:10 Urine Protein NEGATIVE mg/dL (NEGATIVE) 11/23/19 19:10 Urine Glucose (UA) NEGATIVE mg/dL (NEGATIVE) 11/23/19 19:10 Urine Ketones NEGATIVE mg/dL (NEGATIVE) 11/23/19 19:10 Urine Blood SMALL (NEGATIVE) H 11/23/19 19:10 Urine Nitrite (Reflex) NEGATIVE (NEGATIVE) 11/23/19 19:10 Urine Bilirubin NEGATIVE (NEGATIVE) 11/23/19 19:10 Urine Urobilinogen 2.0 mg/dL (<2.0) H 11/23/19 19:10 Leukocyte Esterase Rfl TRACE (NEGATIVE) H 11/23/19 19:10 Urine RBC (Auto) 4 /HPF 11/23/19 19:10 U Hyaline Cast (Auto) 9 /LPF 11/23/19 19:10 Urine Bacteria (Auto) TRACE /HPF 11/23/19 19:10 Urine WBC (Reflex) 9 /HPF 11/23/19 19:10 Squamous Epi Cells Auto 16 /HPF 11/23/19 19:10 Urine Mucus (Auto) FEW /LPF 11/23/19 19:10 Urine Ascorbic Acid NEGATIVE (NEGATIVE) 11/23/19 19:10 Influenza A (Rapid) NEGATIVE (NEGATIVE) 11/23/19 15:16 Influenza B (Rapid) NEGATIVE (NEGATIVE) 11/23/19 15:16 11/23/19 11/23/19 14:20 14:20 Troponin I < 0.012 NT-Pro-B Natriuret Pep 117 Impressions: Chest X-Ray 11/23/19 13:39 IMPRESSION: Chronic lung changes with no acute cardiopulmonary findings. Plan Plan of Treatment: Patient is going home on p.o. prednisone. Going home with home health. Time Spent: Greater than 30 Minutes Stroke Is this a Stroke Patient?: No Acute Heart Failure - Is this a Heart Failure Patient?: No
[2019-11-27] MEDS: HYDROCHLOROTHIAZIDE 12.5 MG TABLET PO SCH (11:42)
[2019-11-27] MEDS: DOCUSATE SODIUM 100 MG CAPSULE PO SCH (11:42)
[2019-11-27] MEDS: ENOXAPARIN SODIUM INJ 40 MG/0.4 ML DISP.SYRIN SUBCUT SCH (11:43)
== END 2019-11-27 16:47 | disposition home or self-care (01) | DRG 190 ==
LOC: ER 13:29 → INTOOBSV 17:19 → EH 17:19 → OBSVTOIN 17:19 → 3W 18:25
PROVIDERS: ADMIT Hospitalist; ATTEND Internal Medicine
DX: J44.1 Chronic obstructive pulmonary disease with (acute) exacerbation (principal); J96.21 Acute and chronic respiratory failure with hypoxia; J96.22 Acute and chronic respiratory failure with hypercapnia; E46 Unspecified protein-calorie malnutrition; Z68.1 Body mass index [BMI] 19.9 or less, adult; I10 Essential (primary) hypertension; D63.8 Anemia in other chronic diseases classified elsewhere; Z99.81 Dependence on supplemental oxygen; Z79.899 Other long term (current) drug therapy; Z87.891 Personal history of nicotine dependence; Z91.013 Allergy to seafood
CPT/HCPCS: 36415; 71045; 80048; 80053; 81001; 83735; 83880; 84484; 85025; 87804; 93005; 93010; 94640; 96374; 99285; G0378; J0360; J1650; J2920; J2930; J7512; J7620

== ENCOUNTER 2020-03-16 11:52 | Inpatient (IN) | payer MEDICARE, OTHER ==
[2020-03-16 12:47] LABS: ABSOLUTE LYMPHOCYTES (AUTO) 0.6 10^3/uL (0.5-4.7); ABSOLUTE MONOCYTES (AUTO) 0.3 10^3/uL (0.1-1.4); ABSOLUTE NEUT (AUTO) 3.5 10^3/uL (1.7-8.2); BASOPHILS % (AUTO) 0.7 % (0-2); HEMATOCRIT 33.2 % (36.0-47.0); HEMOGLOBIN 10.9 g/dL (12.0-15.5); LYMPHOCYTES % (AUTO) 13.7 % (13-45); MEAN CORPUSCULAR HEMOGLOBIN 28.7 pg (27.0-33.4); MEAN CORPUSCULAR HGB CONC 32.8 g/dL (32.0-36.0); MEAN CORPUSCULAR VOLUME 87 fl (80-97); MONOCYTES % (AUTO) 5.8 % (3-13); PLATELET COUNT 192 10^3/uL (150-450); RED CELL DISTRIBUTION WIDTH 16.2 % (11.5-14.0); SEGMENTED NEUTROPHILS % (AUTO) 79.8 % (42-78); TOTAL CELLS COUNTED % (AUTO) 100 %; WHITE BLOOD COUNT 4.4 10^3/uL (4.0-10.5)
[2020-03-16 12:54] LABS: INTERNATIONAL RATION (INR) 1.06; PROTHROMBIN TIME 13.8 SEC (11.4-15.4)
[2020-03-16 13:02] LABS: ALBUMIN 4.1 g/dL (3.5-5.0); ALKALINE PHOSPHATASE 115 U/L (38-126); ASPARTATE AMINO TRANSFERASE 28 U/L (14-36); BILIRUBIN,TOTAL 0.7 mg/dL (0.2-1.3); BLOOD UREA NITROGEN 28 mg/dL (7-20); CALCIUM 9.4 mg/dL (8.4-10.2); CHLORIDE 94 mmol/L (98-107); GLUCOSE 96 mg/dL (75-110); POTASSIUM 3.3 mmol/L (3.6-5.0); TOTAL PROTEIN 7.2 g/dL (6.3-8.2)
--- NOTE | 2020-03-16 13:12 | EKG REPORT ---
SEVERITY:- ABNORMAL ECG - SINUS BRADYCARDIA LEFT VENTRICULAR HYPERTROPHY : Confirmed by: Kadeem Muñoz MD 16-Mar-2020 13:12:20
[2020-03-16 13:17] LABS: ANION GAP 5 (5-19); CARBON DIOXIDE 41 mmol/L (22-30)
[2020-03-16 13:19] LABS: VENOUS BLOOD BASE EXCESS 15.9 mmol/L; VENOUS BLOOD HCO3 45.4 mmol/L (20-32); VENOUS BLOOD PH 7.32 (7.30-7.42)
[2020-03-16 13:33] LABS: VENOUS BLOOD PCO2 89.8 mmHg (35-63)
--- NOTE | 2020-03-16 13:35 | RADIOLOGY REPORT (SQ) ---
EXAM DESCRIPTION: CHEST SINGLE VIEW IMAGES COMPLETED DATE/TIME: 03/16/2020 1:19 pm REASON FOR STUDY: bed 5 sepsis protocol for difficulty breathing COMPARISON: 11/23/2019 EXAM PARAMETERS: NUMBER OF VIEWS: One view. TECHNIQUE: Single frontal radiographic view of the chest acquired. RADIATION DOSE: NA LIMITATIONS: None. FINDINGS: LUNGS AND PLEURA: Emphysematous change with hyperinflation. There is new patchy right bas ilar airspace disease with small right pleural effusion. MEDIASTINUM AND HILAR STRUCTURES: No masses. Contour normal. HEART AND VASCULAR STRUCTURES: Enlarged, stable. Vascular calcifications. BONES: Minimally displaced right-sided rib fractures. HARDWARE: None in the chest. OTHER: No other significant finding. IMPRESSION: Patchy right basilar airspace disease with small right effusion suspicious for pneumonia . Minimally displaced right-sided rib fractures. Additional consideration for pulmonary findings inclu de contusion. TECHNICAL DOCUMENTATION: JOB ID: [id number] 2010 [employer]- All Rights Reserved Reading location - IP/workstation name: [email or web address]
[2020-03-16] MEDS ORDERED: AZITHROMYCIN INJ 500 MG VIAL IV ONE (14:24)
[2020-03-16] MEDS ORDERED: CEFTRIAXONE 2 GM/D5W RTU 2 GM/50 ML RTUPB IV ONE (14:24)
--- NOTE | 2020-03-16 14:35 | ER Document Report ---
ED General - General Chief Complaint: Respiratory Distress Stated Complaint: BREATHING DIFFICULTY Time Seen by Provider: 03/16/20 12:01 Mode of Arrival: Medic Information source: Patient, Emergency Med Personnel TRAVEL OUTSIDE OF THE [place] IN LAST 30 DAYS: No - HPI Notes: Patient is brought in by ambulance for respiratory distress. Patient is a poor historian. Patient is apparently on hospice with a DO NOT RESUSCITATE order. However an ambulance was called today because she was having trouble breathing. When the ambulance arrived she informed them that she no longer wanted to be DO NOT RESUSCITATE and wanted everything done to help her breathe. Patient was placed on CPAP and brought to the emergency department. She states she is now feeling significantly better since the CPAP was placed. There is no known covert virus exposures. It is unknown if patient has any type of recent cough or cold. No known recent trauma or falls. No known fevers. Patient is unsure when her shortness of breath started. She states that she does feel better now however. The shortness of breath was constant it was severe. There is obviously no radiation of the symptoms. It obviously was worse with exertion and better with rest. - Related Data Allergies/Adverse Reactions: shellfish derived Allergy (Verified 11/23/19 13:35) Past Medical History - General Information source: Patient, Emergency Med Personnel - Social History Smoking Status: Former Smoker Frequency of alcohol use: None Drug Abuse: None Family History: Reviewed & Not Pertinent - Past Medical History Cardiac Medical History: Reports: Hx Hypertension Denies: Hx Heart Attack Pulmonary Medical History: Reports: Hx Asthma Neurological Medical History: Denies: Hx Cerebrovascular Accident, Hx Seizures GI Medical History: Denies: Hx Hepatitis, Hx Hiatal Hernia, Hx Ulcer Infectious Medical History: Denies: Hx Hepatitis Past Surgical History: Reports: Hx Hysterectomy. Denies: Hx Mastectomy, Hx Open Heart Surgery, Hx Pacemaker Review of Systems - Review of Systems -: Yes ROS unobtainable due to patient's medical condition - Cannot obtain review of symptoms due to patient's confusion Physical Exam - Vital signs Vitals: Resp Pulse Ox 20 94 03/16/20 11:59 03/16/20 11:59 Interpretation: Normal - General General appearance: Alert, Anxious In distress: Mild - HEENT Head: Normocephalic, Atraumatic Eyes: Normal Pupils: PERRL - Respiratory Respiratory status: Respiratory distress Chest status: Nontender Breath sounds: Decreased air movement, Rhonchi Chest palpation: Normal - Cardiovascular Rhythm: Regular Heart sounds: Normal auscultation Murmur: No - Abdominal Inspection: Normal Distension: No distension Bowel sounds: Normal Tenderness: Nontender Organomegaly: No organomegaly - Back Back: Normal, Nontender - Extremities General upper extremity: Normal inspection, Nontender, Normal color, Normal ROM, Normal temperature General lower extremity: Normal inspection, Nontender, Normal color, Normal ROM, Normal temperature. No: Rebecca's sign - Neurological Cognition: Confused Orientation: Disoriented to time Nina Coma Scale Eye Opening: Spontaneous [place] Coma Scale Verbal: Confused [place] Coma Scale Motor: Obeys Commands [place] Coma Scale Total: 14 Speech: Normal Sensory: Normal - Psychological Associated symptoms: Normal affect, Normal mood - Skin Skin Temperature: Warm Skin Moisture: Dry Skin Color: Normal Course - Re-evaluation Re-evalutation: 03/16/20 14:38 This is a hospice patient with an apparent DO NOT RESUSCITATE order. She informed paramedics that she does not want to be DO NOT RESUSCITATE any longer. She arrives with CPAP in place. She states that she does feel much better since the CPAP was instituted. Work-up shows patient to have a pneumonia with respiratory failure and hypercapnia. She was started on BiPAP and antibiotics. She also has some questionable rib fractures on x-ray but patient is confused and unable to tell me if she has had a recent fall or trauma. There is no family here to obtain further history from at this time. - Vital Signs Vital signs: Temp Pulse Resp BP Pulse Ox 97.6 F 69 20 185/66 H 100 03/16/20 12:47 03/16/20 12:47 03/16/20 14:01 03/16/20 14:01 03/16/20 14:01 - Laboratory Result Diagrams: 03/16/20 12:24 03/16/20 12:24 Laboratory results interpreted by me: 03/16/20 03/16/20 03/16/20 12:24 12:24 13:07 Hgb 10.9 L Hct 33.2 L RDW 16.2 H Seg Neutrophils % 79.8 H VBG pCO2 89.8 H* VBG HCO3 45.4 H Potassium 3.3 L Chloride 94 L Carbon Dioxide 41 H* BUN 28 H - Diagnostic Test Radiology reviewed: Image reviewed, Reports reviewed - EKG Interpretation by Me EKG shows normal: Sinus rhythm Rate: Bradycardia - 59 Rhythm: NSR Voltage: Consistant with LVH Critical Care Note - Critical Care Note Total time excluding time spent on procedures (mins): 55 Comments: Approximate 55 minutes of critical care time were spent on this patient. This time is spent talking with consultants. It was spent reviewing old records. It was spent reviewing laboratories and imaging. It has been doing multiple reassessments. Discharge - Discharge Clinical Impression: Pneumonia Qualifiers: Pneumonia type: due to unspecified organism Laterality: right Lung location: lower lobe of lung Qualified Code(s): J18.9 - Pneumonia, unspecified organism Respiratory failure with hypercapnia Qualifiers: Chronicity: acute Qualified Code(s): J96.02 - Acute respiratory failure with hypercapnia Condition: Serious Disposition: ADMITTED INPATIENT Admitting Provider: Kaylene (Hospitalist) Unit Admitted: [facility]
--- NOTE | 2020-03-16 15:39 | PDOC H&P ---
History of Present Illness Admission Date/PCP: 03/16/20 15:17 Patient complains of: Complaining of shortness of breath and EMS was called. History of Present Illness: TERRI ARREDONDO is a 85 year old female with history of COPD, cachexia, bedbound, hypertension was brought to the emergency room with complaints of severe shortness of breath. ABG in the ER shows pCO2 of 89%. She was placed on BiPAP and as per the patient and the family she wants to be full code. Chest x-ray suggestive of questionable right-sided pneumonia with right-sided rib cage fractures. Discussed the case with the patient's son he was everything to be done including intubation. WBC count is normal and patient is afebrile. Past Medical History Cardiac Medical History: Reports: Hypertension Denies: Myocardial Infarction Pulmonary Medical History: Reports: Asthma Neurological Medical History: Denies: Seizures GI Medical History: Denies: Hepatitis, Hiatal Hernia Hematology: Reports: Anemia Denies: Sickle Cell Disease Past Surgical History Past Surgical History: Reports: Hysterectomy Denies: Amputation, Mastectomy, Pacemaker Social History Information Source: Emergency Med Personnel Lives with: Friend Smoking Status: Former Smoker Frequency of Alcohol Use: None Hx Recreational Drug Use: No Drugs: None Hx Prescription Drug Abuse: No - Advance Directive Resuscitation Status: Full Code Family History Family History: Reviewed & Not Pertinent Parental Family History Reviewed: Yes - Not available. Children Family History Reviewed: Yes Sibling(s) Family History Reviewed.: Yes Medication/Allergy Home Medications: Amlodipine Besylate [Norvasc 10 mg Tablet] 10 mg PO DAILY 06/15/14 Albuterol Sulfate [Proair HFA] 2 puff IH Q4HP PRN 06/16/14 Hydrochlorothiazide [Hydrodiuril 12.5 mg Tablet] 25 mg PO DAILY 10/28/19 Ipratropium/Albuterol Sulfate [Combivent Respimat 4 gm Mdi] 1 puff IH Q6 11/24/19 Valsartan [Diovan] 320 mg PO DAILY 11/24/19 Albuterol Sulfate [Ventolin 0.083% Neb 2.5 mg/3 ml Ampul] 1 vial NEB RTQ6HP PRN 03/16/20 Clonidine HCl [Catapres 0.1 mg Tablet] 0.1 mg PO BID 03/16/20 Fluticasone Propion/Salmeterol [Advair HFA 230-21 mcg Inhaler] 1 puff IH 03/16/20 Metoprolol Succinate [Toprol Xl 50 mg Tab.sr] 50 mg PO DAILY 03/16/20 Allergies/Adverse Reactions: shellfish derived Allergy (Verified 11/23/19 13:35) Review of Systems ROS unobtainable: Due to mental status - Patient is unable to provide any inf ormation. Most of the history obtained from ER physician's notes. Physical Exam Vital Signs: Temp Pulse Resp BP Pulse Ox 97.6 F 69 20 185/66 H 100 03/16/20 12:47 03/16/20 12:47 03/16/20 14:01 03/16/20 14:01 03/16/20 14:01 Intake & Output 03/15/20 03/16/20 03/17/20 06:59 06:59 06:59 Weight 54.431 kg General appearance: PRESENT: no acute distress, disheveled, thin Head exam: PRESENT: atraumatic Eye exam: PRESENT: PERRLA Mouth exam: PRESENT: moist, neck supple, tongue midline Teeth exam: PRESENT: poor dentation Neck exam: ABSENT: carotid bruit, JVD, lymphadenopathy, thyromegaly Respiratory exam: PRESENT: decreased breath sounds, other - On BiPAP Cardiovascular exam: PRESENT: RRR. ABSENT: diastolic murmur, rubs, systolic murmur GI/Abdominal exam: PRESENT: normal bowel sounds, soft. ABSENT: distended, guarding, mass, organolmegaly, rebound, tenderness Rectal exam: PRESENT: deferred Extremities exam: PRESENT: full ROM. ABSENT: calf tenderness, clubbing, pedal edema Neurological exam: PRESENT: alert, awake, CN II-XII grossly intact Psychiatric exam: PRESENT: appropriate affect, normal mood. ABSENT: homicidal ideation, suicidal ideation Results Laboratory Results: 03/16/20 12:24 03/16/20 12:24 03/16/20 03/16/20 03/16/20 12:24 12:24 12:24 WBC 4.4 RBC 3.80 Hgb 10.9 L Hct 33.2 L MCV 87 MCH 28.7 MCHC 32.8 RDW 16.2 H Plt Count 192 Seg Neutrophils % 79.8 H VBG pH VBG pCO2 VBG HCO3 VBG Base Excess Sodium 140.2 Potassium 3.3 L Chloride 94 L Carbon Dioxide 41 H* Anion Gap 5 BUN 28 H Creatinine 0.90 Est GFR ( Amer) > 60 Glucose 96 Lactic Acid 1.1 Calcium 9.4 Total Bilirubin 0.7 AST 28 Alkaline Phosphatase 115 Total Protein 7.2 Albumin 4.1 03/16/20 03/16/20 13:07 14:49 WBC RBC Hgb Hct MCV MCH MCHC RDW Plt Count Seg Neutrophils % VBG pH 7.32 VBG pCO2 89.8 H* VBG HCO3 45.4 H VBG Base Excess 15.9 Sodium Potassium Chloride Carbon Dioxide Anion Gap BUN Creatinine Est GFR ( Amer) Glucose Lactic Acid 0.9 Calcium Total Bilirubin AST Alkaline Phosphatase Total Protein Albumin 03/16/20 12:24 Troponin I 0.069 Impressions: Chest X-Ray 03/16/20 11:55 IMPRESSION: Patchy right basilar airspace disease with small right effusion suspicious for pneumonia. Minimally displaced right-sided rib fractures. Additional consideration for pulmonary findings include contusion. Assessment and Plan - Diagnosis (1) Acute respiratory failure with hypercapnia Is this a current diagnosis for this admission?: Yes Plan: 03/16/2020-patient is going to be admitted to [facility] as an inpatient with a diagnosis of acute on chronic respiratory failure with hypoxia and hypercapnia. In the ABG PCO2 is 89. Patient was on BiPAP. Chest x-ray suggestive of right-s ided pneumonia to start her on IV antibiotic therapy. Patient lives at home there is no exposure to COVID virus. To start her on nebulizer treatments, IV Solu-Medrol, antibiotics. Patient is a full code family wants everything to be done including intubation. (2) Pneumonia Qualifiers: Pneumonia type: due to unspecified organism Laterality: right Lung location: lower lobe of lung Qualified Code(s): J18.9 - Pneumonia, unspecified organism Is this a current diagnosis for this admission?: Yes Plan: 03/16/2020-patient admitted for pneumonia blood cultures will be requested. CT chest will be requested. To start her on IV Rocephin and Zithromax at this time. (3) Hypertension Is this a current diagnosis for this admission?: No Plan: 03/15/2020-patient history of chronic essential hypertension blood pressure today is 185/66. To place her on IV hydralazine 10 mg every 6 hours as needed. To restart her home medications. (4) Protein-energy malnutrition Is this a current diagnosis for this admission?: Yes Plan: 03/16/2020-patient BMI is less than 20 looks cachectic. Bedbound. Dietary consult will be requested and to provide nutrition supplementations. (5) Acute exacerbation of chronic obstructive pulmonary disease (COPD) Is this a current diagnosis for this admission?: Yes Plan: 03/16/2020-patient has history of COPD and former smoker. Patient is not on home oxygen. To start her on BiPAP at this time and transition to home oxygen. (6) Hypokalemia Is this a current diagnosis for this admission?: Yes Plan: 03/16/2020-serum potassium is 3.3 to provide 20 mg of IV potassium today.
[2020-03-16] MEDS ORDERED: ALBUTEROL SULFATE HFA (90 MCG/PUFF) 8 GM MDI (1 MDI/ER DISP) IH PRN (15:41)
[2020-03-16] MEDS ORDERED: ALBUTEROL SULFATE 0.083% NEB 2.5 MG/3 ML AMPUL NEB PRN (15:41)
[2020-03-16] MEDS ORDERED: PROMETHAZINE HCL INJ 25 MG/1 ML VIAL IV PRN (15:43)
[2020-03-16] MEDS ORDERED: ONDANSETRON 4 MG TAB.RAPDIS PO PRN (15:43)
[2020-03-16] MEDS ORDERED: (PENDING PHARMACY ID) (Ipratropium/Albuterol Sulfate [Combivent Respimat 4 Gm Mdi] 1 PUFF) IH SCH (18:00)
[2020-03-16] MEDS: DOCUSATE SODIUM 100 MG/10 ML UDC PO SCH (19:24)
[2020-03-16] MEDS: PANTOPRAZOLE SODIUM 40 MG TABLET.DR PO SCH (19:25)
[2020-03-16] MEDS: CLONIDINE HCL 0.1 MG TABLET PO SCH (22:09)
[2020-03-16] MEDS: FAMOTIDINE 20 MG TABLET PO SCH (22:09)
[2020-03-16] MEDS: HEPARIN SOD (PORCINE) 5,000 UNIT/ML 1 ML VIAL SUBCUT SCH (22:09)
[2020-03-16] MEDS ORDERED: HYDRALAZINE HCL INJ/PF 20 MG/1 ML SDV IV ONE (23:15)
[2020-03-17 05:09] LABS: ABSOLUTE LYMPHOCYTES (AUTO) 0.9 10^3/uL (0.5-4.7); ABSOLUTE MONOCYTES (AUTO) 0.5 10^3/uL (0.1-1.4); ABSOLUTE NEUT (AUTO) 3.9 10^3/uL (1.7-8.2); BASOPHILS % (AUTO) 0.8 % (0-2); HEMATOCRIT 31.4 % (36.0-47.0); HEMOGLOBIN 10.5 g/dL (12.0-15.5); LYMPHOCYTES % (AUTO) 16.8 % (13-45); MEAN CORPUSCULAR HEMOGLOBIN 28.9 pg (27.0-33.4); MEAN CORPUSCULAR HGB CONC 33.4 g/dL (32.0-36.0); MEAN CORPUSCULAR VOLUME 87 fl (80-97); MONOCYTES % (AUTO) 9.1 % (3-13); PLATELET COUNT 182 10^3/uL (150-450); RED BLOOD COUNT 3.62 10^6/uL (3.72-5.28); RED CELL DISTRIBUTION WIDTH 16.4 % (11.5-14.0); SEGMENTED NEUTROPHILS % (AUTO) 73.3 % (42-78); TOTAL CELLS COUNTED % (AUTO) 100 %; WHITE BLOOD COUNT 5.3 10^3/uL (4.0-10.5)
[2020-03-17 05:20] LABS: INTERNATIONAL RATION (INR) 1.05; PROTHROMBIN TIME 13.7 SEC (11.4-15.4)
[2020-03-17 05:24] LABS: ALBUMIN 3.6 g/dL (3.5-5.0); ALKALINE PHOSPHATASE 101 U/L (38-126); ASPARTATE AMINO TRANSFERASE 27 U/L (14-36); BILIRUBIN,TOTAL 0.5 mg/dL (0.2-1.3); BLOOD UREA NITROGEN 28 mg/dL (7-20); CHLORIDE 97 mmol/L (98-107); CHOLESTEROL 156.13 mg/dL (0-200); GLUCOSE 90 mg/dL (75-110); POTASSIUM 3.3 mmol/L (3.6-5.0); TOTAL PROTEIN 6.5 g/dL (6.3-8.2); TRIGLYCERIDES 54 mg/dL (<150)
[2020-03-17 05:33] LABS: ANION GAP 3 (5-19)
[2020-03-17 05:34] LABS: CARBON DIOXIDE 41 mmol/L (22-30)
[2020-03-17 05:35] LABS: DIRECT LDL 52 mg/dL (<100)
[2020-03-17] MEDS: HEPARIN SOD (PORCINE) 5,000 UNIT/ML 1 ML VIAL SUBCUT SCH ×3 (05:37→22:26)
[2020-03-17] MEDS: PANTOPRAZOLE SODIUM 40 MG TABLET.DR PO SCH (05:37)
[2020-03-17] MEDS: IPRATROPIUM/ALBUTEROL 0.5-2.5 MG/3 ML AMPUL NEB PRN (09:57)
[2020-03-17] MEDS ORDERED: METOPROLOL SUCCINATE 50 MG TAB.SR.24H PO SCH (10:00)
[2020-03-17] MEDS ORDERED: VALSARTAN 160 MG TABLET PO SCH (10:00)
[2020-03-17] MEDS ORDERED: AMLODIPINE BESYLATE 10 MG TABLET PO SCH (10:00)
[2020-03-17] MEDS ORDERED: AZITHROMYCIN INJ 500 MG VIAL IV SCH (10:00)
[2020-03-17] MEDS ORDERED: HYDROCHLOROTHIAZIDE 25 MG TABLET PO SCH (10:00)
[2020-03-17] MEDS ORDERED: HYDROCHLOROTHIAZIDE 12.5 MG TABLET PO SCH (10:00)
[2020-03-17] MEDS: CEFTRIAXONE 1 GM/D5W RTU 1 GM/50 ML RTUPB IV SCH (10:07)
[2020-03-17] MEDS: DOCUSATE SODIUM 100 MG/10 ML UDC PO SCH ×2 (10:08→17:19)
[2020-03-17] MEDS: CLONIDINE HCL 0.1 MG TABLET PO SCH (10:08)
[2020-03-17] MEDS: FAMOTIDINE 20 MG TABLET PO SCH (10:09)
--- NOTE | 2020-03-17 10:27 | PDOC PROGRESS REPORT ---
Subjective Progress Note for:: 03/15/20 Subjective:: 85 year old female with history of COPD, cachexia, bedbound, hypertension was brought to the emergency room with complaints of severe shortness of breath. ABG in the ER shows pCO2 of 89%. She was placed on BiPAP and as per the patient and the family she wants to be full code. Chest x-ray suggestive of questionable right-sided pneumonia with right-sided rib cage fractures. Discussed the case with the patient's son he was everything to be done including intubation. WBC count is normal and patient is afebrile. 03/17/2020-elderly female comfortable in the bed on BiPAP. Not able to take p.o. medications at this time. Unable to eat at this time. Plan is to request for hospice referral, to switch p.o. medications to IV if possible. Patient is cachectic most likely has a severe protein energy malnutrition dietary consult was requested. Reason For Visit: ACUTE ON CHRONIC RESP FAILURE Physical Exam Vital Signs: Temp Pulse Resp BP Pulse Ox 97.9 F 69 18 153/47 H 97 03/17/20 08:18 03/17/20 10:04 03/17/20 10:04 03/17/20 08:18 03/17/20 10:04 Intake & Output 03/16/20 03/17/20 03/18/20 06:59 06:59 06:59 Intake Total 211 Balance 211 Weight 41.6 kg General appearance: PRESENT: no acute distress, disheveled, thin, other - On BiPAP not communicative. Head exam: PRESENT: atraumatic Eye exam: PRESENT: conjunctiva pale, PERRLA Mouth exam: PRESENT: moist, tongue midline Teeth exam: PRESENT: poor dentation Neck exam: ABSENT: carotid bruit, JVD, lymphadenopathy, thyromegaly Respiratory exam: PRESENT: decreased breath sounds Cardiovascular exam: PRESENT: RRR. ABSENT: diastolic murmur, rubs, systolic murmur GI/Abdominal exam: PRESENT: normal bowel sounds, soft. ABSENT: distended, guarding, mass, organolmegaly, rebound, tenderness Rectal exam: PRESENT: deferred Extremities exam: PRESENT: full ROM. ABSENT: calf tenderness, clubbing, pedal edema Neurological exam: PRESENT: altered Psychiatric exam: PRESENT: appropriate affect, normal mood. ABSENT: homicidal ideation, suicidal ideation Results Laboratory Results: 03/17/20 04:25 03/17/20 04:25 03/16/20 03/16/20 03/16/20 12:24 12:24 12:24 WBC 4.4 RBC 3.80 Hgb 10.9 L Hct 33.2 L MCV 87 MCH 28.7 MCHC 32.8 RDW 16.2 H Plt Count 192 Seg Neutrophils % 79.8 H VBG pH VBG pCO2 VBG HCO3 VBG Base Excess Sodium 140.2 Potassium 3.3 L Chloride 94 L Carbon Dioxide 41 H* Anion Gap 5 BUN 28 H Creatinine 0.90 Est GFR ( Amer) > 60 Glucose 96 Lactic Acid 1.1 Calcium 9.4 Magnesium Total Bilirubin 0.7 AST 28 Alkaline Phosphatase 115 Total Protein 7.2 Albumin 4.1 Triglycerides Cholesterol LDL Cholesterol Direct VLDL Cholesterol HDL Cholesterol TSH 03/16/20 03/16/20 03/16/20 13:07 14:49 17:59 WBC RBC Hgb Hct MCV MCH MCHC RDW Plt Count Seg Neutrophils % VBG pH 7.32 VBG pCO2 89.8 H* VBG HCO3 45.4 H VBG Base Excess 15.9 Sodium Potassium Chloride Carbon Dioxide Anion Gap BUN Creatinine Est GFR ( Amer) Glucose Lactic Acid 0.9 0.9 Calcium Magnesium Total Bilirubin AST Alkaline Phosphatase Total Protein Albumin Triglycerides Cholesterol LDL Cholesterol Direct VLDL Cholesterol HDL Cholesterol TSH 03/17/20 03/17/20 03/17/20 04:25 04:25 04:25 WBC 5.3 RBC 3.62 L Hgb 10.5 L Hct 31.4 L MCV 87 MCH 28.9 MCHC 33.4 RDW 16.4 H Plt Count 182 Seg Neutrophils % 73.3 VBG pH VBG pCO2 VBG HCO3 VBG Base Excess Sodium 141.2 Potassium 3.3 L Chloride 97 L Carbon Dioxide 41 H* Anion Gap 3 L BUN 28 H Creatinine 0.79 Est GFR ( Amer) > 60 Glucose 90 Lactic Acid Calcium 9.0 Magnesium 2.2 Total Bilirubin 0.5 AST 27 Alkaline Phosphatase 101 Total Protein 6.5 Albumin 3.6 Triglycerides 54 Cholesterol 156.13 LDL Cholesterol Direct 52 VLDL Cholesterol 11.0 HDL Cholesterol 99 TSH 1.21 03/16/20 03/16/20 03/16/20 12:24 17:59 22:24 Troponin I 0.069 0.056 0.042 03/17/20 04:25 Troponin I 0.037 Impressions: Chest X-Ray 03/16/20 11:55 IMPRESSION: Patchy right basilar airspace disease with small right effusion suspicious for pneumonia. Minimally displaced right-sided rib fractures. Additional consideration for pulmonary findings include contusion. Assessment and Plan - Diagnosis (1) Acute respiratory failure with hypercapnia Is this a current diagnosis for this admission?: Yes Plan: 03/16/2020-patient is going to be admitted to [facility] as an inpatient with a diagnosis of acute on chronic respiratory failure with hypoxia and hypercapnia. In the ABG PCO2 is 89. Patient was on BiPAP. Chest x-ray suggestive of right- sided pneumonia to start her on IV antibiotic therapy. Patient lives at home there is no exposure to COVID virus. To start her on nebulizer treatments, IV Solu-Medrol, antibiotics. Patient is a full code family wants everything to be done including intubation. 03/17/2020-patient is still on BiPAP. WBC count is 5300, chest x-ray suggestive of right lower lobe pneumonia. Patient is on ceftriaxone and Zithromax. Not taking any medications by mouth. Speech consult will be requested. (2) Pneumonia Qualifiers: Pneumonia type: due to unspecified organism Laterality: right Lung location: lower lobe of lung Qualified Code(s): J18.9 - Pneumonia, unspecified organism Is this a current diagnosis for this admission?: Yes Plan: 03/16/2020-patient admitted for pneumonia blood cultures will be requested. CT chest will be requested. To start her on IV Rocephin and Zithromax at this time. 03/17/2020-patient admitted with right-sided pneumonia most likely community- acquired pneumonia. Presently on ceftriaxone and Zithromax. Cultures are pending. She is on BiPAP. (3) Hypertension Is this a current diagnosis for this admission?: No Plan: 03/16/2020-patient history of chronic essential hypertension blood pressure today is 185/66. To place her on IV hydralazine 10 mg every 6 hours as needed. To restart her home medications. 03/17/2020-patient does not take any medications by mouth at this time. Blood pressure is 150/60 to switch medications to IV hydralazine 10 mg every 6 hours as needed for systolic blood pressure more than 170. (4) Protein-energy malnutrition Is this a current diagnosis for this admission?: Yes Plan: 03/16/2020-patient BMI is less than 20 looks cachectic. Bedbound. Dietary consult will be requested and to provide nutrition supplementations. (5) Acute exacerbation of chronic obstructive pulmonary disease (COPD) Is this a current diagnosis for this admission?: Yes Plan: 03/16/2020-patient has history of COPD and former smoker. Patient is not on home oxygen. To start her on BiPAP at this time and transition to home oxygen. 03/17/2020-patient has history of COPD secondary to smoking and BiPAP at this time. As per the family members she is a full code. (6) Hypokalemia Is this a current diagnosis for this admission?: Yes Plan: 03/16/2020-serum potassium is 3.3 to provide 20 mg of IV potassium today. Serum potassium today is 3.3. To give IV potassium 20 mg at this time.
[2020-03-17] MEDS ORDERED: ONDANSETRON HCL INJ/PF 4 MG/2 ML SDV IV PRN (10:29)
[2020-03-17] MEDS ORDERED: POTASSI CL 20 MEQ/50 ML RIDER 20 MEQ/50 ML RTUPB IV ONE (11:30)
[2020-03-17] MEDS: AZITHROMYCIN 500 MG in DEXTROSE 5%-WATER 250 ML IV SCH (11:49)
--- NOTE | 2020-03-17 13:52 | CDI QUERY ---
CDI Query CDI Review: Dear Provider, Please clarify if pt does in fact have: rib fractures, number of fractures and whether traumatic vs spontaneous / compression / pathologic or insignificant finding: Clinical data: CXR "possible rib fractures" noted Thanks, Christal Dave [phone]
[2020-03-17] MEDS: PANTOPRAZOLE SODIUM 40 MG VIAL IV SCH (22:26)
[2020-03-18] MEDS: HYDRALAZINE HCL INJ/PF 20 MG/1 ML SDV IV PRN (01:15)
[2020-03-18] MEDS: HEPARIN SOD (PORCINE) 5,000 UNIT/ML 1 ML VIAL SUBCUT SCH ×3 (05:04→23:06)
[2020-03-18 07:11] LABS: HEMOGLOBIN 10.4 g/dL (12.0-15.5); MEAN CORPUSCULAR HGB CONC 33.6 g/dL (32.0-36.0); MEAN CORPUSCULAR VOLUME 86 fl (80-97); RED BLOOD COUNT 3.59 10^6/uL (3.72-5.28); RED CELL DISTRIBUTION WIDTH 16.3 % (11.5-14.0); WHITE BLOOD COUNT 3.5 10^3/uL (4.0-10.5)
[2020-03-18 07:18] LABS: ALBUMIN 3.7 g/dL (3.5-5.0); ALKALINE PHOSPHATASE 112 U/L (38-126); ASPARTATE AMINO TRANSFERASE 29 U/L (14-36); BILIRUBIN,TOTAL 0.6 mg/dL (0.2-1.3); BLOOD UREA NITROGEN 27 mg/dL (7-20); CALCIUM 9.4 mg/dL (8.4-10.2); CARBON DIOXIDE 39 mmol/L (22-30); CHLORIDE 97 mmol/L (98-107); GLUCOSE 81 mg/dL (75-110); POTASSIUM 3.4 mmol/L (3.6-5.0); TOTAL PROTEIN 6.5 g/dL (6.3-8.2)
[2020-03-18 07:20] LABS: ANION GAP 4 (5-19)
[2020-03-18 07:34] LABS: ABSOLUTE MONOCYTES # (MANUAL) 0.2 10^3/uL (0.1-1.4); BASOPHILS % (MANUAL) 1 % (0-2); EOSINOPHILS % (MANUAL) 0 % (0-6); LYMPHOCYTES % (MANUAL) 26 % (13-45); MONOCYTES % (MANUAL) 6 % (3-13); SEGMENTED NEUTROPHILS % (MAN) 64 % (42-78); TOTAL CELLS COUNTED 100
[2020-03-18 07:37] LABS: ANISOCYTOSIS 1+; OVALOCYTES 1+; PLATELET CLUMPS PRESENT; PLATELET COMMENT ADEQUATE; PLATELET COUNT 184 10^3/uL (150-450); PLATELET LARGE PRESENT; POIKILOCYTOSIS 1+; SCHISTOCYTES SLIGHT
--- NOTE | 2020-03-18 08:45 | PDOC PROGRESS REPORT ---
Subjective Progress Note for:: 03/18/20 Subjective:: 85 year old female with history of COPD, cachexia, bedbound, hypertension was brought to the emergency room with complaints of severe shortness of breath. ABG in the ER shows pCO2 of 89%. She was placed on BiPAP and as per the patient and the family she wants to be full code. Chest x-ray suggestive of questionable right-sided pneumonia with right-sided rib cage fractures. Discussed the case with the patient's son he was everything to be done including intubation. WBC count is normal and patient is afebrile. 03/17/2020-elderly female comfortable in the bed on BiPAP. Not able to take p.o. medications at this time. Unable to eat at this time. Plan is to request for hospice referral, to switch p.o. medications to IV if possible. Patient is cachectic most likely has a severe protein energy malnutrition dietary consult was requested. 03/[id number]-old female admitted with acute on chronic respiratory failure with hypercapnia. Initially BiPAP this morning she is on nasal cannula. More alert more awake. Able to drink a few sips of soda. Speech consult was requested. In the meantime to start her on soft mechanical soft diet with nectar thickened liquids. Reason For Visit: ACUTE ON CHRONIC RESP FAILURE Physical Exam Vital Signs: Temp Pulse Resp BP Pulse Ox 97.5 F 77 24 H 148/49 H 100 03/18/20 07:37 03/18/20 07:37 03/18/20 07:37 03/18/20 07:37 03/18/20 07:37 Intake & Output 03/17/20 03/18/20 03/19/20 06:59 06:59 06:59 Intake Total 211 672 Balance 211 672 Weight 41.6 kg 42.1 kg General appearance: PRESENT: no acute distress, cooperative, disheveled, thin Head exam: PRESENT: atraumatic Eye exam: PRESENT: PERRLA Ear exam: PRESENT: normal external ear exam Mouth exam: PRESENT: neck supple Teeth exam: PRESENT: poor dentation Respiratory exam: PRESENT: decreased breath sounds Cardiovascular exam: PRESENT: RRR. ABSENT: diastolic murmur, rubs, systolic murmur GI/Abdominal exam: PRESENT: normal bowel sounds, soft. ABSENT: distended, guarding, mass, organolmegaly, rebound, tenderness Rectal exam: PRESENT: deferred Neurological exam: PRESENT: alert, awake, CN II-XII grossly intact. ABSENT: motor sensory deficit Results Laboratory Results: 03/18/20 06:27 03/18/20 06:27 03/18/20 03/18/20 06:27 06:27 WBC 3.5 L RBC 3.59 L Hgb 10.4 L Hct 31.0 L MCV 86 MCH 29.0 MCHC 33.6 RDW 16.3 H Plt Count 184 Seg Neutrophils % Not Reportable Sodium 140.1 Potassium 3.4 L Chloride 97 L Carbon Dioxide 39 H Anion Gap 4 L BUN 27 H Creatinine 0.73 Est GFR ( Amer) > 60 Glucose 81 Calcium 9.4 Magnesium 2.2 Total Bilirubin 0.6 AST 29 Alkaline Phosphatase 112 Total Protein 6.5 Albumin 3.7 03/16/20 03/16/20 03/16/20 12:24 17:59 22:24 Troponin I 0.069 0.056 0.042 03/17/20 04:25 Troponin I 0.037 Impressions: Chest X-Ray 03/16/20 11:55 IMPRESSION: Patchy right basilar airspace disease with small right effusion suspicious for pneumonia. Minimally displaced right-sided rib fractures. Additional consideration for pulmonary findings include contusion. Assessment and Plan - Diagnosis (1) Acute respiratory failure with hypercapnia Is this a current diagnosis for this admission?: Yes Plan: 03/16/2020-patient is going to be admitted to [facility] as an inpatient with a diagnosis of acute on chronic respiratory failure with hypoxia and hypercapnia. In the ABG PCO2 is 89. Patient was on BiPAP. Chest x-ray suggestive of right- sided pneumonia to start her on IV antibiotic therapy. Patient lives at home there is no exposure to COVID virus. To start her on nebulizer treatments, IV Solu-Medrol, antibiotics. Patient is a full code family wants everything to be done including intubation. 03/17/2020-patient is still on BiPAP. WBC count is 5300, chest x-ray suggestive of right lower lobe pneumonia. Patient is on ceftriaxone and Zithromax. Not taking any medications by mouth. Speech consult will be requested. 03/18/2020-patient admitted with acute on chronic respiratory failure with hypercapnia initially on BiPAP and now she is on nasal cannula. Comfortably in the bed more alert, more awake compared to yesterday. (2) Pneumonia Qualifiers: Pneumonia type: due to unspecified organism Laterality: right Lung location: lower lobe of lung Qualified Code(s): J18.9 - Pneumonia, unspecified organism Is this a current diagnosis for this admission?: Yes Plan: 03/16/2020-patient admitted for pneumonia blood cultures will be requested. CT chest will be requested. To start her on IV Rocephin and Zithromax at this time. 03/17/2020-patient admitted with right-sided pneumonia most likely community-acq uired pneumonia. Presently on ceftriaxone and Zithromax. Cultures are pending. She is on BiPAP. 03/18/2020-chest x-ray suggestive of right-sided pneumonia. Blood cultures are pending. Presently on IV ceftriaxone, Zithromax. (3) Hypertension Is this a current diagnosis for this admission?: No Plan: 03/16/2020-patient history of chronic essential hypertension blood pressure today is 185/66. To place her on IV hydralazine 10 mg every 6 hours as needed. To restart her home medications. 03/17/2020-patient does not take any medications by mouth at this time. Blood pressure is 150/60 to switch medications to IV hydralazine 10 mg every 6 hours as needed for systolic blood pressure more than 170. 03/18/2020-blood pressure today is 173/60. To start her back on amlodipine 10 mg p.o. daily and she is also on IV hydralazine 10 mg every 6 hours as needed for systolic blood pressure more than 170. (4) Protein-energy malnutrition Is this a current diagnosis for this admission?: Yes Plan: 03/16/2020-patient BMI is less than 20 looks cachectic. Bedbound. Dietary consult will be requested and to provide nutrition supplementations. (5) Acute exacerbation of chronic obstructive pulmonary disease (COPD) Is this a current diagnosis for this admission?: Yes Plan: 03/16/2020-patient has history of COPD and former smoker. Patient is not on home oxygen. To start her on BiPAP at this time and transition to home oxygen. 03/17/2020-patient has history of COPD secondary to smoking and BiPAP at this time. As per the family members she is a full code. (6) Hypokalemia Is this a current diagnosis for this admission?: Yes Plan: 03/16/2020-serum potassium is 3.3 to provide 20 mg of IV potassium today. 03/17-Serum potassium today is 3.3. To give IV potassium 20 mg at this time. 03/18/2020-serum potassium today is 3.4 to give 40 mEq of IV potassium.
[2020-03-18] MEDS: DOCUSATE SODIUM 100 MG/10 ML UDC PO SCH ×2 (09:25→18:35)
[2020-03-18] MEDS ORDERED: [UNRECOGNIZED DRUG - OTHER] IH SCH (10:00)
[2020-03-18] MEDS ORDERED: FLUTICASONE PROPION IH SCH (10:00)
[2020-03-18] MEDS ORDERED: SALMETEROL IH SCH (10:00)
[2020-03-18] MEDS: AMLODIPINE BESYLATE 10 MG TABLET PO SCH (10:41)
[2020-03-18] MEDS: PANTOPRAZOLE SODIUM 40 MG VIAL IV SCH ×2 (10:42→23:08)
[2020-03-18] MEDS: CEFTRIAXONE 1 GM/D5W RTU 1 GM/50 ML RTUPB IV SCH (10:42)
[2020-03-18] MEDS: FLUTICASONE/VILANTEROL 200-25 MCG/DOSE IH SCH (10:43)
[2020-03-18] MEDS: AZITHROMYCIN 500 MG in DEXTROSE 5%-WATER 250 ML IV SCH (13:00)
[2020-03-18] MEDS: ACETAMINOPHEN 325 MG TABLET PO PRN (18:53)
[2020-03-19] MEDS: HYDRALAZINE HCL INJ/PF 20 MG/1 ML SDV IV PRN (02:11)
[2020-03-19] MEDS: HEPARIN SOD (PORCINE) 5,000 UNIT/ML 1 ML VIAL SUBCUT SCH ×3 (06:00→21:55)
[2020-03-19 07:07] LABS: HEMATOCRIT 28.5 % (36.0-47.0); HEMOGLOBIN 9.5 g/dL (12.0-15.5); MEAN CORPUSCULAR HEMOGLOBIN 28.5 pg (27.0-33.4); MEAN CORPUSCULAR HGB CONC 33.2 g/dL (32.0-36.0); MEAN CORPUSCULAR VOLUME 86 fl (80-97); PLATELET COUNT 173 10^3/uL (150-450); RED BLOOD COUNT 3.31 10^6/uL (3.72-5.28); RED CELL DISTRIBUTION WIDTH 16.6 % (11.5-14.0); WHITE BLOOD COUNT 4.3 10^3/uL (4.0-10.5)
[2020-03-19 07:18] LABS: ALBUMIN 3.1 g/dL (3.5-5.0); ALKALINE PHOSPHATASE 86 U/L (38-126); ASPARTATE AMINO TRANSFERASE 28 U/L (14-36); BILIRUBIN,TOTAL 0.4 mg/dL (0.2-1.3); BLOOD UREA NITROGEN 29 mg/dL (7-20); CALCIUM 8.9 mg/dL (8.4-10.2); CHLORIDE 98 mmol/L (98-107); GLUCOSE 99 mg/dL (75-110); POTASSIUM 3.3 mmol/L (3.6-5.0); TOTAL PROTEIN 5.9 g/dL (6.3-8.2)
[2020-03-19 07:26] LABS: ABSOLUTE LYMPHOCYTES# (MANUAL) 1.6 10^3/uL (0.5-4.7); ABSOLUTE MONOCYTES # (MANUAL) 0.2 10^3/uL (0.1-1.4); ANION GAP 0 (5-19); BASOPHILS % (MANUAL) 0 % (0-2); CARBON DIOXIDE 43 mmol/L (22-30); EOSINOPHILS % (MANUAL) 0 % (0-6); LYMPHOCYTES % (MANUAL) 37 % (13-45); MONOCYTES % (MANUAL) 4 % (3-13); SEGMENTED NEUTROPHILS % (MAN) 59 % (42-78); TOTAL CELLS COUNTED 100
[2020-03-19 07:27] LABS: OVALOCYTES 1+
[2020-03-19 07:28] LABS: ANISOCYTOSIS 1+; PLATELET COMMENT ADEQUATE; TEAR DROP CELLS SLIGHT
[2020-03-19] MEDS: POTASSI CL 20 MEQ/50 ML RIDER 20 MEQ/50 ML RTUPB IV SCH ×2 (08:29→09:45)
--- NOTE | 2020-03-19 08:33 | PDOC PROGRESS REPORT ---
Subjective Progress Note for:: 03/19/20 Subjective:: 85 year old female with history of COPD, cachexia, bedbound, hypertension was brought to the emergency room with complaints of severe shortness of breath. ABG in the ER shows pCO2 of 89%. She was placed on BiPAP and as per the patient and the family she wants to be full code. Chest x-ray suggestive of questionable right-sided pneumonia with right-sided rib cage fractures. Discussed the case with the patient's son he was everything to be done including intubation. WBC count is normal and patient is afebrile. 03/17/2020-elderly female comfortable in the bed on BiPAP. Not able to take p.o. medications at this time. Unable to eat at this time. Plan is to request for hospice referral, to switch p.o. medications to IV if possible. Patient is cachectic most likely has a severe protein energy malnutrition dietary consult was requested. 03/18/[id number]-vymq-old female admitted with acute on chronic respiratory failure with hypercapnia. Initially BiPAP this morning she is on nasal cannula. More alert more awake. Able to drink a few sips of soda. Speech consult was requested. In the meantime to start her on soft mechanical soft diet with nectar thickened liquids. 03/19/[id number]-anls-old female admitted with acute on chronic respiratory failure with hypercapnia, PCO2 is 43 today she she was placed back on BiPAP. Speech consult was done plan is to arrange for modified barium swallow Saturday. Blood cultures are negative so far plan is to continue the antibiotic therapy, PRN BiPAP at this time. Reason For Visit: ACUTE ON CHRONIC RESP FAILURE Physical Exam Vital Signs: Temp Pulse Resp BP Pulse Ox 98.0 F 60 22 H 169/72 H 96 03/19/20 07:45 03/19/20 07:45 03/19/20 07:45 03/19/20 07:45 03/19/20 07:45 Intake & Output 03/18/20 03/19/20 03/20/20 06:59 06:59 06:59 Intake Total 672 918 Balance 672 918 Weight 42.1 kg 43 kg General appearance: PRESENT: no acute distress, disheveled, thin Head exam: PRESENT: atraumatic Eye exam: PRESENT: conjunctiva pale, PERRLA Mouth exam: PRESENT: moist, tongue midline Teeth exam: PRESENT: poor dentation Neck exam: ABSENT: carotid bruit, JVD, lymphadenopathy, thyromegaly Respiratory exam: PRESENT: decreased breath sounds, other - On BiPAP at the time of my examination. Cardiovascular exam: PRESENT: RRR. ABSENT: diastolic murmur, rubs, systolic murmur GI/Abdominal exam: PRESENT: normal bowel sounds, soft. ABSENT: distended, guarding, mass, organolmegaly, rebound, tenderness Rectal exam: PRESENT: deferred Extremities exam: PRESENT: full ROM. ABSENT: calf tenderness, clubbing, pedal edema Neurological exam: PRESENT: alert, awake, oriented to person, oriented to place, oriented to time, oriented to situation, CN II-XII grossly intact. ABSENT: motor sensory deficit Psychiatric exam: PRESENT: appropriate affect, normal mood. ABSENT: homicidal ideation, suicidal ideation Results Laboratory Results: 03/19/20 06:39 03/19/20 06:39 03/19/20 03/19/20 06:39 06:39 WBC 4.3 RBC 3.31 L Hgb 9.5 L Hct 28.5 L MCV 86 MCH 28.5 MCHC 33.2 RDW 16.6 H Plt Count 173 Seg Neutrophils % Not Reportable Sodium 140.7 Potassium 3.3 L Chloride 98 Carbon Dioxide 43 H* Anion Gap 0 L BUN 29 H Creatinine 0.74 Est GFR ( Amer) > 60 Glucose 99 Calcium 8.9 Magnesium 2.1 Total Bilirubin 0.4 AST 28 Alkaline Phosphatase 86 Total Protein 5.9 L Albumin 3.1 L 03/16/20 03/16/20 03/16/20 12:24 17:59 22:24 Troponin I 0.069 0.056 0.042 03/17/20 04:25 Troponin I 0.037 Impressions: Chest X-Ray 03/16/20 11:55 IMPRESSION: Patchy right basilar airspace disease with small right effusion suspicious for pneumonia. Minimally displaced right-sided rib fractures. Additional consideration for pulmonary findings include contusion. Assessment and Plan - Diagnosis (1) Acute respiratory failure with hypercapnia Is this a current diagnosis for this admission?: Yes Plan: 03/16/2020-patient is going to be admitted to [facility] as an inpatient with a diagnosis of acute on chronic respiratory failure with hypoxia and hypercapnia. In the ABG PCO2 is 89. Patient was on BiPAP. Chest x-ray suggestive of right- sided pneumonia to start her on IV antibiotic therapy. Patient lives at home there is no exposure to COVID virus. To start her on nebulizer treatments, IV Solu-Medrol, antibiotics. Patient is a full code family wants everything to be done including intubation. 03/17/2020-patient is still on BiPAP. WBC count is 5300, chest x-ray suggestive of right lower lobe pneumonia. Patient is on ceftriaxone and Zithromax. Not taking any medications by mouth. Speech consult will be requested. 03/18/2020-patient admitted with acute on chronic respiratory failure with hypercapnia initially on BiPAP and now she is on nasal cannula. Comfortably in the bed more alert, more awake compared to yesterday. 03/19/2020-patient admitted with acute on chronic respiratory failure with hypercapnia. Chest x-ray suggestive of questionable right-sided pneumonia, on IV antibiotic therapy Zithromax and Rocephin blood cultures are negative so far afebrile. (2) Pneumonia Qualifiers: Pneumonia type: due to unspecified organism Laterality: right Lung location: lower lobe of lung Qualified Code(s): J18.9 - Pneumonia, unspecified organism Is this a current diagnosis for this admission?: Yes Plan: 03/16/2020-patient admitted for pneumonia blood cultures will be requested. CT chest will be requested. To start her on IV Rocephin and Zithromax at this ti me. 03/17/2020-patient admitted with right-sided pneumonia most likely community- acquired pneumonia. Presently on ceftriaxone and Zithromax. Cultures are pending. She is on BiPAP. 03/18/2020-chest x-ray suggestive of right-sided pneumonia. Blood cultures are pending. Presently on IV ceftriaxone, Zithromax. 03/19/2020-patient admitted with questionable right-sided pneumonia most likely community-acquired pneumonia. Blood cultures are negative so far on IV ceftriaxone and Zithromax. (3) Hypertension Is this a current diagnosis for this admission?: No Plan: 03/16/2020-patient history of chronic essential hypertension blood pressure today is 185/66. To place her on IV hydralazine 10 mg every 6 hours as needed. To restart her home medications. 03/17/2020-patient does not take any medications by mouth at this time. Blood pressure is 150/60 to switch medications to IV hydralazine 10 mg every 6 hours as needed for systolic blood pressure more than 170. 03/18/2020-blood pressure today is 173/60. To start her back on amlodipine 10 mg p.o. daily and she is also on IV hydralazine 10 mg every 6 hours as needed for systolic blood pressure more than 170. 03/19/2020-blood pressure today is 157/65 on amlodipine 10 mg p.o. daily plan is to continue the present management. (4) Protein-energy malnutrition Is this a current diagnosis for this admission?: Yes Plan: 03/16/2020-patient BMI is less than 20 looks cachectic. Bedbound. Dietary consult will be requested and to provide nutrition supplementations. (5) Acute exacerbation of chronic obstructive pulmonary disease (COPD) Is this a current diagnosis for this admission?: Yes Plan: 03/16/2020-patient has history of COPD and former smoker. Patient is not on home oxygen. To start her on BiPAP at this time and transition to home oxygen. 03/17/2020-patient has history of COPD secondary to smoking and BiPAP at this time. As per the family members she is a full code. (6) Hypokalemia Is this a current diagnosis for this admission?: Yes Plan: 03/16/2020-serum potassium is 3.3 to provide 20 mg of IV potassium today. 03/17-Serum potassium today is 3.3. To give IV potassium 20 mg at this time. 03/18/2020-serum potassium today is 3.4 to give 40 mEq of IV potassium. 03/19/2020-serum potassium today is 3.3 to give a 40 mg of IV potassium. (7) Rib fractures Is this a current diagnosis for this admission?: No Plan: 03/19/2020-patient has right-sided rib fractures as per the family she was admitted for rib fractures and [facility] 1 month ago. Cause is unknown. Number of fractures is not documented by the radiologist. - Time Anticipated discharge: Hospice Within: within 72 hours
[2020-03-19] MEDS: AMLODIPINE BESYLATE 10 MG TABLET PO SCH (11:00)
[2020-03-19] MEDS: PANTOPRAZOLE SODIUM 40 MG VIAL IV SCH ×2 (11:00→21:55)
[2020-03-19] MEDS: DOCUSATE SODIUM 100 MG/10 ML UDC PO SCH ×2 (11:00→17:31)
[2020-03-19] MEDS: FLUTICASONE/VILANTEROL 200-25 MCG/DOSE IH SCH (12:27)
[2020-03-19] MEDS: CEFTRIAXONE 1 GM/D5W RTU 1 GM/50 ML RTUPB IV SCH (12:28)
[2020-03-19] MEDS: ACETAMINOPHEN 325 MG TABLET PO PRN (12:28)
[2020-03-19] MEDS: AZITHROMYCIN 500 MG in DEXTROSE 5%-WATER 250 ML IV SCH (13:26)
[2020-03-20] MEDS: HYDRALAZINE HCL INJ/PF 20 MG/1 ML SDV IV PRN ×2 (03:24→20:02)
[2020-03-20] MEDS ORDERED: HYDRALAZINE HCL INJ/PF 20 MG/1 ML SDV IV ONE (04:30)
[2020-03-20] MEDS: HEPARIN SOD (PORCINE) 5,000 UNIT/ML 1 ML VIAL SUBCUT SCH ×2 (05:43→15:32)
--- NOTE | 2020-03-20 08:47 | PDOC PROGRESS REPORT ---
Subjective Progress Note for:: 03/20/20 Subjective:: 85 year old female with history of COPD, cachexia, bedbound, hypertension was brought to the emergency room with complaints of severe shortness of breath. ABG in the ER shows pCO2 of 89%. She was placed on BiPAP and as per the patient and the family she wants to be full code. Chest x-ray suggestive of questionable right-sided pneumonia with right-sided rib cage fractures. Discussed the case with the patient's son he was everything to be done including intubation. WBC count is normal and patient is afebrile. 03/17/2020-elderly female comfortable in the bed on BiPAP. Not able to take p.o. medications at this time. Unable to eat at this time. Plan is to request for hospice referral, to switch p.o. medications to IV if possible. Patient is cachectic most likely has a severe protein energy malnutrition dietary consult was requested. 03/18/[id number]-bnpo-old female admitted with acute on chronic respiratory failure with hypercapnia. Initially BiPAP this morning she is on nasal cannula. More alert more awake. Able to drink a few sips of soda. Speech consult was requested. In the meantime to start her on soft mechanical soft diet with nectar thickened liquids. 03/19/[id number]-dwml-old female admitted with acute on chronic respiratory failure with hypercapnia, PCO2 is 43 today she she was placed back on BiPAP. Speech consult was done plan is to arrange for modified barium swallow Saturday. Blood cultures are negative so far plan is to continue the antibiotic therapy, PRN BiPAP at this time. 03/20/2020-patient is on BiPAP at the time of examination. Comfortably in the bed. Not in distress. Patient is scheduled for modified barium swallow tomorrow. In my opinion patient needs to go to hospice house. Adult Protective Services will be notified. Reason For Visit: ACUTE ON CHRONIC RESP FAILURE Physical Exam Vital Signs: Temp Pulse Resp BP Pulse Ox 97.7 F 69 32 H 151/48 H 92 03/20/20 07:24 03/20/20 07:24 03/20/20 08:04 03/20/20 07:24 03/20/20 08:04 Intake & Output 03/19/20 03/20/20 03/21/20 06:59 06:59 06:59 Intake Total 918 1122 Balance 918 1122 Weight 43 kg 44.8 kg General appearance: PRESENT: no acute distress, cooperative, disheveled, thin Head exam: PRESENT: atraumatic Eye exam: PRESENT: conjunctiva pale, PERRLA Mouth exam: PRESENT: neck supple Teeth exam: PRESENT: poor dentation Neck exam: ABSENT: carotid bruit, JVD, lymphadenopathy, thyromegaly Respiratory exam: PRESENT: decreased breath sounds Cardiovascular exam: PRESENT: RRR. ABSENT: diastolic murmur, rubs, systolic murmur GI/Abdominal exam: PRESENT: normal bowel sounds, soft. ABSENT: distended, gua rding, mass, organolmegaly, rebound, tenderness Extremities exam: PRESENT: full ROM. ABSENT: calf tenderness, clubbing, pedal edema Neurological exam: PRESENT: CN II-XII grossly intact, other - Patient has advanced dementia. Results Laboratory Results: 03/19/20 06:39 03/19/20 06:39 03/16/20 03/16/20 03/16/20 12:24 17:59 22:24 Troponin I 0.069 0.056 0.042 03/17/20 04:25 Troponin I 0.037 Impressions: Chest X-Ray 03/16/20 11:55 IMPRESSION: Patchy right basilar airspace disease with small right effusion suspicious for pneumonia. Minimally displaced right-sided rib fractures. Additional consideration for pulmonary findings include contusion. Assessment and Plan - Diagnosis (1) Acute respiratory failure with hypercapnia Is this a current diagnosis for this admission?: Yes Plan: 03/16/2020-patient is going to be admitted to [facility] as an inpatient with a diagnosis of acute on chronic respiratory failure with hypoxia and hypercapnia. In the ABG PCO2 is 89. Patient was on BiPAP. Chest x-ray suggestive of right- sided pneumonia to start her on IV antibiotic therapy. Patient lives at home there is no exposure to COVID virus. To start her on nebulizer treatments, IV Solu-Medrol, antibiotics. Patient is a full code family wants everything to be done including intubation. 03/17/2020-patient is still on BiPAP. WBC count is 5300, chest x-ray suggestive of right lower lobe pneumonia. Patient is on ceftriaxone and Zithromax. Not taking any medications by mouth. Speech consult will be requested. 03/18/2020-patient admitted with acute on chronic respiratory failure with hypercapnia initially on BiPAP and now she is on nasal cannula. Comfortably in the bed more alert, more awake compared to yesterday. 03/19/2020-patient admitted with acute on chronic respiratory failure with hypercapnia. Chest x-ray suggestive of questionable right-sided pneumonia, on IV antibiotic therapy Zithromax and Rocephin blood cultures are negative so far afebrile. 03/20/2020-patient admitted with acute on chronic respiratory failure with hypercapnia and BiPAP. Plan is to continue the present management. (2) Pneumonia Qualifiers: Pneumonia type: due to unspecified organism Laterality: right Lung location: lower lobe of lung Qualified Code(s): J18.9 - Pneumonia, unspecified organism Is this a current diagnosis for this admission?: Yes Plan: 03/16/2020-patient admitted for pneumonia blood cultures will be requested. CT chest will be requested. To start her on IV Rocephin and Zithromax at this time. 03/17/2020-patient admitted with right-sided pneumonia most likely community- acquired pneumonia. Presently on ceftriaxone and Zithromax. Cultures are pendi ng. She is on BiPAP. 03/18/2020-chest x-ray suggestive of right-sided pneumonia. Blood cultures are pending. Presently on IV ceftriaxone, Zithromax. 03/19/2020-patient admitted with questionable right-sided pneumonia most likely community-acquired pneumonia. Blood cultures are negative so far on IV ceftriaxone and Zithromax. 03/20/2020-patient admitted with community-acquired pneumonia, and IV antibiotic therapy. Afebrile. Blood cultures are negative so far. (3) Hypertension Is this a current diagnosis for this admission?: No Plan: 03/16/2020-patient history of chronic essential hypertension blood pressure today is 185/66. To place her on IV hydralazine 10 mg every 6 hours as needed. To restart her home medications. 03/17/2020-patient does not take any medications by mouth at this time. Blood pressure is 150/60 to switch medications to IV hydralazine 10 mg every 6 hours as needed for systolic blood pressure more than 170. 03/18/2020-blood pressure today is 173/60. To start her back on amlodipine 10 mg p.o. daily and she is also on IV hydralazine 10 mg every 6 hours as needed for systolic blood pressure more than 170. 03/19/2020-blood pressure today is 157/65 on amlodipine 10 mg p.o. daily plan is to continue the present management. 03/20/2020-blood pressure today is 180/76. Patient is on amlodipine 10 mg p.o. daily and also on IV hydralazine as needed. (4) Protein-energy malnutrition Is this a current diagnosis for this admission?: Yes Plan: 03/16/2020-patient BMI is less than 20 looks cachectic. Bedbound. Dietary consult will be requested and to provide nutrition supplementations. (5) Acute exacerbation of chronic obstructive pulmonary disease (COPD) Is this a current diagnosis for this admission?: Yes Plan: 03/16/2020-patient has history of COPD and former smoker. Patient is not on home oxygen. To start her on BiPAP at this time and transition to home oxygen. 03/17/2020-patient has history of COPD secondary to smoking and BiPAP at this time. As per the family members she is a full code. (6) Hypokalemia Is this a current diagnosis for this admission?: Yes Plan: 03/16/2020-serum potassium is 3.3 to provide 20 mg of IV potassium today. 03/17-Serum potassium today is 3.3. To give IV potassium 20 mg at this time. 03/18/2020-serum potassium today is 3.4 to give 40 mEq of IV potassium. 03/19/2020-serum potassium today is 3.3 to give a 40 mg of IV potassium. (7) Rib fractures Is this a current diagnosis for this admission?: No Plan: 03/19/2020-patient has right-sided rib fractures as per the family she was admitted for rib fractures and [facility] 1 month ago. Cause is unknown. Number of fractures is not documented by the radiologist. - Time Anticipated discharge: Hospice Within: within 72 hours
[2020-03-20] MEDS: PANTOPRAZOLE SODIUM 40 MG VIAL IV SCH (10:35)
[2020-03-20] MEDS: CEFTRIAXONE 1 GM/D5W RTU 1 GM/50 ML RTUPB IV SCH (10:36)
[2020-03-20] MEDS: FLUTICASONE/VILANTEROL 200-25 MCG/DOSE IH SCH (10:52)
[2020-03-20] MEDS: DOCUSATE SODIUM 100 MG/10 ML UDC PO SCH ×2 (11:06→18:04)
[2020-03-20] MEDS: AMLODIPINE BESYLATE 10 MG TABLET PO SCH (11:06)
[2020-03-20] MEDS: AZITHROMYCIN 500 MG in DEXTROSE 5%-WATER 250 ML IV SCH (12:00)
[2020-03-20] MEDS ORDERED: LORAZEPAM INJ 2 MG/1 ML VIAL IV PRN (13:14)
--- NOTE | 2020-03-20 19:34 | Progress Note ---
Provider Note Provider Note: I received a call from the patient's nurse. The patient's son just arrived from [place]. The patient was on home hospice but for some reason was admitted to the hospital as a full code. She has not been doing well. The son Myles wanted to change her CODE STATUS back to DNR as a first step. The patient has been on BiPAP continuously. She just received a dose of lorazepam I believe. The nurse reports that she is not struggling to breathe as much as earlier. I went through the different levels of care with the patient's son. We discussed going back to DNR status as well as comfort measures only. I explained that if she remained home on hospice and this happened she would have been basically comfort care. It was surprising that she was taken back to the hospital. I reviewed in great detail with the difference between DNR and comfort care. The patient did admit that he does not think his mother will get better. He reports that her quality of life has been very poor for many months. He admits that he certainly does not want her to suffer. Going immediately to comfort measures only is too overwhelming for him at this time. We will change her status to DO NOT RESUSCITATE for now. Document did order as needed lorazepam and morphine to help with any agitation or difficulty breathing/air hunger. These are relatively small doses and should not suppress her respiratory rate. The patient's son is in agreement with this plan. I explained that after another day or 2 if he decides that she is not going to get better he can always make her comfort measures. He is in agreement with this plan. I did notify the nurse and entered the new DNR order.
[2020-03-20] MEDS: LORAZEPAM INJ 2 MG/1 ML VIAL IV PRN (21:34)
[2020-03-21] MEDS: HEPARIN SOD (PORCINE) 5,000 UNIT/ML 1 ML VIAL SUBCUT SCH ×4 (03:14→23:05)
--- NOTE | 2020-03-21 08:49 | PDOC PROGRESS REPORT ---
Subjective Progress Note for:: 03/21/20 Subjective:: 85 year old female with history of COPD, cachexia, bedbound, hypertension was brought to the emergency room with complaints of severe shortness of breath. ABG in the ER shows pCO2 of 89%. She was placed on BiPAP and as per the patient and the family she wants to be full code. Chest x-ray suggestive of questionable right-sided pneumonia with right-sided rib cage fractures. Discussed the case with the patient's son he was everything to be done including intubation. WBC count is normal and patient is afebrile. 03/17/2020-elderly female comfortable in the bed on BiPAP. Not able to take p.o. medications at this time. Unable to eat at this time. Plan is to request for hospice referral, to switch p.o. medications to IV if possible. Patient is cachectic most likely has a severe protein energy malnutrition dietary consult was requested. 03/18/[id number]-old female admitted with acute on chronic respiratory failure with hypercapnia. Initially BiPAP this morning she is on nasal cannula. More alert more awake. Able to drink a few sips of soda. Speech consult was requested. In the meantime to start her on soft mechanical soft diet with nectar thickened liquids. 03/19/[id number]-cson-old female admitted with acute on chronic respiratory failure with hypercapnia, PCO2 is 43 today she she was placed back on BiPAP. Speech consult was done plan is to arrange for modified barium swallow Saturday. Blood cultures are negative so far plan is to continue the antibiotic therapy, PRN BiPAP at this time. 03/20/2020-patient is on BiPAP at the time of examination. Comfortably in the bed. Not in distress. Patient is scheduled for modified barium swallow tomorrow. In my opinion patient needs to go to hospice house. Adult Protective Services will be notified. 03/21/2020-patient still on BiPAP. Receiving IV morphine, IV Ativan as needed basis. As per patient's son's request CODE STATUS was changed to DNR. Reason For Visit: ACUTE ON CHRONIC RESP FAILURE Physical Exam Vital Signs: Temp Pulse Resp BP Pulse Ox 97.2 F 66 19 154/53 H 100 03/21/20 03:21 03/21/20 03:21 03/21/20 03:24 03/21/20 03:21 03/21/20 03:24 Intake & Output 03/20/20 03/21/20 03/22/20 06:59 06:59 06:59 Intake Total 1122 1 Output Total 200 Balance 1122 -199 Weight 44.8 kg 43.9 kg General appearance: PRESENT: no acute distress, disheveled, thin Eye exam: PRESENT: conjunctiva pale, PERRLA Mouth exam: PRESENT: moist, tongue midline Teeth exam: PRESENT: poor dentation Respiratory exam: PRESENT: decreased breath sounds, other - Patient is on BiPAP. Cardiovascular exam: PRESENT: RRR. ABSENT: diastolic murmur, rubs, systolic murmur GI/Abdominal exam: PRESENT: normal bowel sounds, soft. ABSENT: distended, guarding, mass, organolmegaly, rebound, tenderness Rectal exam: PRESENT: deferred Extremities exam: PRESENT: full ROM. ABSENT: calf tenderness, clubbing, pedal edema Neurological exam: PRESENT: alert, awake, oriented to person, oriented to place, oriented to time, oriented to situation, CN II-XII grossly intact. ABSENT: motor sensory deficit Psychiatric exam: PRESENT: appropriate affect, normal mood. ABSENT: homicidal ideation, suicidal ideation Results Laboratory Results: 03/19/20 06:39 03/19/20 06:39 03/16/20 03/16/20 03/16/20 12:24 17:59 22:24 Troponin I 0.069 0.056 0.042 03/17/20 04:25 Troponin I 0.037 Impressions: Chest X-Ray 03/16/20 11:55 IMPRESSION: Patchy right basilar airspace disease with small right effusion suspicious for pneumonia. Minimally displaced right-sided rib fractures. Additional consideration for pulmonary findings include contusion. Assessment and Plan - Diagnosis (1) Acute respiratory failure with hypercapnia Is this a current diagnosis for this admission?: Yes Plan: 03/16/2020-patient is going to be admitted to [facility] as an inpatient with a diagnosis of acute on chronic respiratory failure with hypoxia and hypercapnia. In the ABG PCO2 is 89. Patient was on BiPAP. Chest x-ray suggestive of right-sided pneumonia to start her on IV antibiotic therapy. Patient lives at home there is no exposure to COVID virus. To start her on nebulizer treatments, IV Solu-Medrol, antibiotics. Patient is a full code family wants everything to be done including intubation. 03/17/2020-patient is still on BiPAP. WBC count is 5300, chest x-ray suggestive of right lower lobe pneumonia. Patient is on ceftriaxone and Zithromax. Not taking any medications by mouth. Speech consult will be requested. 03/18/2020-patient admitted with acute on chronic respiratory failure with hypercapnia initially on BiPAP and now she is on nasal cannula. Comfortably in the bed more alert, more awake compared to yesterday. 03/19/2020-patient admitted with acute on chronic respiratory failure with hypercapnia. Chest x-ray suggestive of questionable right-sided pneumonia, on IV antibiotic therapy Zithromax and Rocephin blood cultures are negative so far afebrile. 03/20/2020-patient admitted with acute on chronic respiratory failure with hypercapnia and BiPAP. Plan is to continue the present management. 03/21/20-patient admitted with acute on chronic respiratory failure with hypoxia and hypercapnia and BiPAP. Patient is DNR now. Chest x-ray indicated for right-sided pneumonia receiving IV antibiotic therapy at this time. (2) Pneumonia Qualifiers: Pneumonia type: due to unspecified organism Laterality: right Lung location: lower lobe of lung Qualified Code(s): J18.9 - Pneumonia, unspecified organism Is this a current diagnosis for this admission?: Yes Plan: 03/16/2020-patient admitted for pneumonia blood cultures will be requested. CT chest will be requested. To start her on IV Rocephin and Zithromax at this time. 03/17/2020-patient admitted with right-sided pneumonia most likely community- acquired pneumonia. Presently on ceftriaxone and Zithromax. Cultures are pending. She is on BiPAP. 03/18/2020-chest x-ray suggestive of right-sided pneumonia. Blood cultures are pending. Presently on IV ceftriaxone, Zithromax. 03/19/2020-patient admitted with questionable right-sided pneumonia most likely community-acquired pneumonia. Blood cultures are negative so far on IV ceftriaxone and Zithromax. 03/20/2020-patient admitted with community-acquired pneumonia, and IV antibiotic therapy. Afebrile. Blood cultures are negative so far. 03/21/2020-patient is receiving IV ceftriaxone, Zithromax. Blood cultures are negative so far. Plan is to continue the present management and provide BiPAP on needed basis. (3) Hypertension Is this a current diagnosis for this admission?: No Plan: 03/16/2020-patient history of chronic essential hypertension blood pressure today is 185/66. To place her on IV hydralazine 10 mg every 6 hours as needed. To restart her home medications. 03/17/2020-patient does not take any medications by mouth at this time. Blood pressure is 150/60 to switch medications to IV hydralazine 10 mg every 6 hours as needed for systolic blood pressure more than 170. 03/18/2020-blood pressure today is 173/60. To start her back on amlodipine 10 mg p.o. daily and she is also on IV hydralazine 10 mg every 6 hours as needed for systolic blood pressure more than 170. 03/19/2020-blood pressure today is 157/65 on amlodipine 10 mg p.o. daily plan is to continue the present management. 03/20/2020-blood pressure today is 180/76. Patient is on amlodipine 10 mg p.o. daily and also on IV hydralazine as needed. 03/21/2020-blood pressure today's 154/60. Stable. (4) Protein-energy malnutrition Is this a current diagnosis for this admission?: Yes Plan: 03/16/2020-patient BMI is less than 20 looks cachectic. Bedbound. Dietary consult will be requested and to provide nutrition supplementations. (5) Acute exacerbation of chronic obstructive pulmonary disease (COPD) Is this a current diagnosis for this admission?: Yes Plan: 03/16/2020-patient has history of COPD and former smoker. Patient is not on home oxygen. To start her on BiPAP at this time and transition to home oxygen. 03/17/2020-patient has history of COPD secondary to smoking and BiPAP at this time. As per the family members she is a full code. (6) Hypokalemia Is this a current diagnosis for this admission?: Yes Plan: 03/16/2020-serum potassium is 3.3 to provide 20 mg of IV potassium today. 03/17-Serum potassium today is 3.3. To give IV potassium 20 mg at this time. 03/18/2020-serum potassium today is 3.4 to give 40 mEq of IV potassium. 03/19/2020-serum potassium today is 3.3 to give a 40 mg of IV potassium. (7) Rib fractures Is this a current diagnosis for this admission?: No Plan: 03/19/2020-patient has right-sided rib fractures as per the family she was admitted for rib fractures and [facility] 1 month ago. Cause is unknown. Number of fractures is not documented by the radiologist. - Time Anticipated discharge: Hospice Within: within 48 hours
[2020-03-21] MEDS: IPRATROPIUM/ALBUTEROL 0.5-2.5 MG/3 ML AMPUL NEB PRN (09:30)
[2020-03-21] MEDS: LORAZEPAM INJ 2 MG/1 ML VIAL IV PRN ×2 (10:15→17:53)
[2020-03-21] MEDS: CEFTRIAXONE 1 GM/D5W RTU 1 GM/50 ML RTUPB IV SCH (10:21)
[2020-03-21] MEDS: AMLODIPINE BESYLATE 10 MG TABLET PO SCH (10:23)
[2020-03-21] MEDS: FLUTICASONE/VILANTEROL 200-25 MCG/DOSE IH SCH (10:23)
[2020-03-21] MEDS: IPRATROPIUM/ALBUTEROL 0.5-2.5 MG/3 ML AMPUL NEB SCH ×3 (10:26→15:27)
[2020-03-21] MEDS: AZITHROMYCIN 500 MG in DEXTROSE 5%-WATER 250 ML IV SCH (12:30)
[2020-03-21] MEDS ORDERED: PROMETHAZINE HCL INJ 25 MG/1 ML VIAL IV PRN (15:00)
[2020-03-21] MEDS: MORPHINE SULFATE 10 MG/ML INJ IV PRN (15:51)
[2020-03-21] MEDS: DOCUSATE SODIUM 100 MG CAPSULE PO SCH (17:08)
[2020-03-21 22:34] LABS: HEMATOCRIT 33.2 % (36.0-47.0); HEMOGLOBIN 10.7 g/dL (12.0-15.5); MEAN CORPUSCULAR HEMOGLOBIN 28.4 pg (27.0-33.4); MEAN CORPUSCULAR HGB CONC 32.3 g/dL (32.0-36.0); MEAN CORPUSCULAR VOLUME 88 fl (80-97); PLATELET COUNT 201 10^3/uL (150-450); RED BLOOD COUNT 3.77 10^6/uL (3.72-5.28); RED CELL DISTRIBUTION WIDTH 16.6 % (11.5-14.0); WHITE BLOOD COUNT 3.4 10^3/uL (4.0-10.5)
[2020-03-21 23:03] LABS: BLOOD UREA NITROGEN 20 mg/dL (7-20); CALCIUM 9.3 mg/dL (8.4-10.2); CHLORIDE 96 mmol/L (98-107); GLUCOSE 83 mg/dL (75-110); POTASSIUM 4.4 mmol/L (3.6-5.0)
[2020-03-21 23:16] LABS: ANION GAP -1 (5-19)
[2020-03-21 23:18] LABS: CARBON DIOXIDE 41 mmol/L (22-30)
[2020-03-21] MEDS: HYDRALAZINE HCL INJ/PF 20 MG/1 ML SDV IV PRN (23:23)
[2020-03-22] MEDS ORDERED: DEXTROSE 40% GEL 15 GM TUBE PO PRN ×2 (00:05)
[2020-03-22] MEDS ORDERED: DEXTROSE 50%-WATER 25 GM/50 ML DISP.SYRIN IV PRN ×2 (00:05)
[2020-03-22] MEDS ORDERED: GLUCAGON,HUMAN RECOMB 1 MG INJ SUBCUT PRN (00:05)
[2020-03-22] MEDS: HEPARIN SOD (PORCINE) 5,000 UNIT/ML 1 ML VIAL SUBCUT SCH ×3 (05:08→21:27)
[2020-03-22] MEDS: LORAZEPAM INJ 2 MG/1 ML VIAL IV PRN ×2 (05:52→12:40)
[2020-03-22] MEDS: DOCUSATE SODIUM 100 MG/10 ML UDC PO SCH (06:06)
--- NOTE | 2020-03-22 09:15 | PDOC PROGRESS REPORT ---
Subjective Progress Note for:: 03/22/20 Subjective:: The patient opens her eyes and responds to her name however there is limited interaction. Hand mittens are in place. Her breathing does appear comfortable. She does not appear to be in any pain. Reason For Visit: ACUTE ON CHRONIC RESP FAILURE Physical Exam Vital Signs: Temp Pulse Resp BP Pulse Ox 97.1 F 69 28 H 169/82 H 97 03/22/20 07:46 03/22/20 07:46 03/22/20 07:46 03/22/20 07:46 03/22/20 07:46 Intake & Output 03/21/20 03/22/20 03/23/20 06:59 06:59 06:59 Intake Total 301 118 Output Total 200 375 Balance 101 -257 Weight 43.9 kg 42 kg General appearance: PRESENT: no acute distress, thin. ABSENT: cooperative Head exam: PRESENT: atraumatic, normocephalic Ear exam: PRESENT: normal external ear exam. ABSENT: bleeding, drainage Mouth exam: PRESENT: other - BiPAP in place Teeth exam: PRESENT: poor dentation Respiratory exam: PRESENT: clear to auscultation ada, symmetrical, unlabored. ABSENT: rales, rhonchi, tachypnea, wheezes Cardiovascular exam: PRESENT: RRR, +S1, +S2 GI/Abdominal exam: PRESENT: diminished bowel sounds, soft. ABSENT: tenderness Rectal exam: PRESENT: deferred Gentrourinary exam: PRESENT: indwelling catheter Extremities exam: ABSENT: pedal edema Musculoskeletal exam: PRESENT: other - Decreased muscle mass. ABSENT: ambulatory Neurological exam: PRESENT: awake, oriented to person - Opens her eyes to her name but unable to further assess. ABSENT: alert Psychiatric exam: PRESENT: flat affect. ABSENT: agitated, anxious Focused psych exam: PRESENT: other - Unable to assess due to limited interaction Skin exam: PRESENT: dry, warm. ABSENT: rash Results Laboratory Results: 03/21/20 22:23 03/21/20 22:23 03/21/20 03/21/20 22:23 22:23 WBC 3.4 L RBC 3.77 Hgb 10.7 L Hct 33.2 L MCV 88 MCH 28.4 MCHC 32.3 RDW 16.6 H Plt Count 201 Sodium 136.1 L Potassium 4.4 Chloride 96 L Carbon Dioxide 41 H* Anion Gap -1 L BUN 20 Creatinine 0.68 Est GFR ( Amer) > 60 Glucose 83 Calcium 9.3 03/16/20 13:07 Blood Blood Culture - Final NO GROWTH IN 5 DAYS 03/16/20 12:24 Blood Blood Culture - Final NO GROWTH IN 5 DAYS 03/16/20 03/16/20 03/16/20 12:24 17:59 22:24 Troponin I 0.069 0.056 0.042 03/17/20 04:25 Troponin I 0.037 Impressions: Chest X-Ray 03/16/20 11:55 IMPRESSION: Patchy right basilar airspace disease with small right effusion suspicious for pneumonia. Minimally displaced right-sided rib fractures. Additional consideration for pulmonary findings include contusion. Assessment and Plan - Diagnosis (1) Acute respiratory failure with hypercapnia Is this a current diagnosis for this admission?: Yes Plan: 03/16/2020-patient is going to be admitted to [facility] as an inpatient with a diagnosis of acute on chronic respiratory failure with hypoxia and hypercapnia. In the ABG PCO2 is 89. Patient was on BiPAP. Chest x-ray suggestive of right- sided pneumonia to start her on IV antibiotic therapy. Patient lives at home there is no exposure to COVID virus. To start her on nebulizer treatments, IV Solu-Medrol, antibiotics. Patient is a full code family wants everything to be done including intubation. 03/17/2020-patient is still on BiPAP. WBC count is 5300, chest x-ray suggestive of right lower lobe pneumonia. Patient is on ceftriaxone and Zithromax. Not taking any medications by mouth. Speech consult will be requested. 03/18/2020-patient admitted with acute on chronic respiratory failure with hypercapnia initially on BiPAP and now she is on nasal cannula. Comfortably in the bed more alert, more awake compared to yesterday. 03/19/2020-patient admitted with acute on chronic respiratory failure with hypercapnia. Chest x-ray suggestive of questionable right-sided pneumonia, on IV antibiotic therapy Zithromax and Rocephin blood cultures are negative so far afebrile. 03/20/2020-patient admitted with acute on chronic respiratory failure with hypercapnia and BiPAP. Plan is to continue the present management. 03/21/20-patient admitted with acute on chronic respiratory failure with hypoxia and hypercapnia and BiPAP. Patient is DNR now. Chest x-ray indicated for right-sided pneumonia receiving IV antibiotic therapy at this time. 03/22/2020-improved at times. Can tolerate nasal cannula for short periods. Continue to encourage BiPAP. (2) Pneumonia Qualifiers: Pneumonia type: due to unspecified organism Laterality: right Lung location: lower lobe of lung Qualified Code(s): J18.9 - Pneumonia, unspecified organism Is this a current diagnosis for this admission?: Yes Plan: 03/16/2020-patient admitted for pneumonia blood cultures will be requested. CT chest will be requested. To start her on IV Rocephin and Zithromax at this time. 03/17/2020-patient admitted with right-sided pneumonia most likely community- acquired pneumonia. Presently on ceftriaxone and Zithromax. Cultures are pending. She is on BiPAP. 03/18/2020-chest x-ray suggestive of right-sided pneumonia. Blood cultures are pending. Presently on IV ceftriaxone, Zithromax. 03/19/2020-patient admitted with questionable right-sided pneumonia most likely community-acquired pneumonia. Blood cultures are negative so far on IV ceft riaxone and Zithromax. 03/20/2020-patient admitted with community-acquired pneumonia, and IV antibiotic therapy. Afebrile. Blood cultures are negative so far. 03/21/2020-patient is receiving IV ceftriaxone, Zithromax. Blood cultures are negative so far. Plan is to continue the present management and provide BiPAP on needed basis. 03/22/2020-azithromycin and ceftriaxone are completed on March 24. Blood cultures negative. Continue BiPAP as above. (3) Hypertension Qualifiers: Hypertension type: essential hypertension Qualified Code(s): I10 - Essential (primary) hypertension Is this a current diagnosis for this admission?: No Plan: 03/16/2020-patient history of chronic essential hypertension blood pressure today is 185/66. To place her on IV hydralazine 10 mg every 6 hours as needed. To restart her home medications. 03/17/2020-patient does not take any medications by mouth at this time. Blood pressure is 150/60 to switch medications to IV hydralazine 10 mg every 6 hours as needed for systolic blood pressure more than 170. 03/18/2020-blood pressure today is 173/60. To start her back on amlodipine 10 mg p.o. daily and she is also on IV hydralazine 10 mg every 6 hours as needed for systolic blood pressure more than 170. 03/19/2020-blood pressure today is 157/65 on amlodipine 10 mg p.o. daily plan is to continue the present management. 03/20/2020-blood pressure today is 180/76. Patient is on amlodipine 10 mg p.o. daily and also on IV hydralazine as needed. 03/21/2020-blood pressure today's 154/60. Stable. 03/22/2020-review of blood pressures shows variability. This could be related to pain, anxiety or agitation. We will continue current regimen and monitor at this time. As needed hydralazine is available. (4) Protein-energy malnutrition Qualifiers: Protein-calorie malnutrition severity: severe Qualified Code(s): E43 - Unspecified severe protein-calorie malnutrition Is this a current diagnosis for this admission?: Yes Plan: 03/16/2020-patient BMI is less than 20 looks cachectic. Bedbound. Dietary consult will be requested and to provide nutrition supplementations. 03/22/2020-p.o. intake has been very limited. This is due to combination of reasons. Dietitian recommendations appreciated however the family has been wavering from hospice to full code and then to DNR. The patient is in no condition to attempt a modified barium swallow. It is my opinion that the patient would benefit most from returning to hospice care. I did have this discussion with patient's son 2 nights ago. Will make dietary recommendations based on the patient's ability to safely swallow. A diet order is in place. (5) Acute exacerbation of chronic obstructive pulmonary disease (COPD) Is this a current diagnosis for this admission?: Yes Plan: 03/16/2020-patient has history of COPD and former smoker. Patient is not on home oxygen. To start her on BiPAP at this time and transition to home oxygen. 03/17/2020-patient has history of COPD secondary to smoking and BiPAP at this time. As per the family members she is a full code. 03/22/2020-worsened by pneumonia. BiPAP as above. Currently on antibiotics and nebulizer treatments. (6) Hypokalemia Is this a current diagnosis for this admission?: Yes Plan: 03/16/2020-serum potassium is 3.3 to provide 20 mg of IV potassium today. 03/17-Serum potassium today is 3.3. To give IV potassium 20 mg at this time. 03/18/2020-serum potassium today is 3.4 to give 40 mEq of IV potassium. 03/19/2020-serum potassium today is 3.3 to give a 40 mg of IV potassium. 03/22/2020-laboratory studies on March 29 revealed normokalemia. (7) Rib fractures Qualifiers: Encounter type: initial encounter Rib fracture type: multiple ribs Fracture type: closed Laterality: right Qualified Code(s): S22.41XA - Multiple fractures of ribs, right side, initial encounter for closed fracture Is this a current diagnosis for this admission?: Yes Plan: The radiology report lists "rib fractures ". Per review of the x-ray I believe it is 2 ribs with displaced fractures. Difficult to know the exact etiology. Possibly related to a fall at home but this is speculation. - Time Time Spent with patient: 15-24 minutes Medications reviewed and adjusted accordingly: Yes Anticipated discharge: Other - Unknown. Patient was on home hospice prior to this admission. She is currently a full code. There has been several changes in CODE STATUS. We will continue to work with family on a concrete disposition. Within: Other - Unknown
[2020-03-22] MEDS: IPRATROPIUM/ALBUTEROL 0.5-2.5 MG/3 ML AMPUL NEB SCH ×3 (11:25→19:45)
[2020-03-22] MEDS: FLUTICASONE/VILANTEROL 200-25 MCG/DOSE IH SCH (11:25)
[2020-03-22] MEDS: AMLODIPINE BESYLATE 10 MG TABLET PO SCH (11:25)
[2020-03-22] MEDS: DOCUSATE SODIUM 100 MG CAPSULE PO SCH ×2 (11:25→19:44)
[2020-03-22] MEDS: CEFTRIAXONE 1 GM/D5W RTU 1 GM/50 ML RTUPB IV SCH (11:27)
[2020-03-22] MEDS: HYDRALAZINE HCL INJ/PF 20 MG/1 ML SDV IV PRN ×2 (11:42→23:29)
[2020-03-22] MEDS: AZITHROMYCIN 500 MG in DEXTROSE 5%-WATER 250 ML IV SCH (11:46)
[2020-03-23] MEDS: LORAZEPAM INJ 2 MG/1 ML VIAL IV PRN (00:12)
[2020-03-23] MEDS: HEPARIN SOD (PORCINE) 5,000 UNIT/ML 1 ML VIAL SUBCUT SCH ×3 (05:20→23:00)
[2020-03-23] MEDS: DOCUSATE SODIUM 100 MG CAPSULE PO SCH ×2 (09:12→17:07)
[2020-03-23] MEDS: CEFTRIAXONE 1 GM/D5W RTU 1 GM/50 ML RTUPB IV SCH (09:12)
[2020-03-23] MEDS: FLUTICASONE/VILANTEROL 200-25 MCG/DOSE IH SCH (09:21)
[2020-03-23] MEDS: AMLODIPINE BESYLATE 10 MG TABLET PO SCH (09:21)
[2020-03-23] MEDS: AZITHROMYCIN 500 MG in DEXTROSE 5%-WATER 250 ML IV SCH (12:05)
[2020-03-23] MEDS: MORPHINE SULFATE 10 MG/ML INJ IV PRN (13:09)
[2020-03-23] MEDS: IPRATROPIUM/ALBUTEROL 0.5-2.5 MG/3 ML AMPUL NEB SCH ×2 (13:11→16:53)
--- NOTE | 2020-03-23 18:00 | PDOC PROGRESS REPORT ---
Subjective Progress Note for:: 03/23/20 Subjective:: The patient is actually alert. Nursing staff feeding her dinner. She is tolerating it well. She acknowledged me and answered some questions. This in fact is the most active and alert that I have seen her in the last several days. Reason For Visit: ACUTE ON CHRONIC RESP FAILURE Physical Exam Vital Signs: Temp Pulse Resp BP Pulse Ox 97.5 F 72 24 H 146/56 H 98 03/23/20 15:54 03/23/20 15:54 03/23/20 16:32 03/23/20 15:54 03/23/20 16:32 Intake & Output 03/22/20 03/23/20 03/24/20 06:59 06:59 06:59 Intake Total 378 350 370 Output Total 375 450 50 Balance 3 -100 320 Weight 42 kg 42.7 kg General appearance: PRESENT: cooperative, thin Head exam: PRESENT: atraumatic, normocephalic Ear exam: PRESENT: normal external ear exam. ABSENT: bleeding, drainage Mouth exam: PRESENT: moist, tongue midline Teeth exam: PRESENT: poor dentation Neck exam: ABSENT: carotid bruit, JVD, lymphadenopathy Respiratory exam: PRESENT: clear to auscultation ada, symmetrical, unlabored, other - Decreased inspiratory phase. ABSENT: rales, rhonchi, tachypnea, wheezes Cardiovascular exam: PRESENT: RRR, +S1, +S2 GI/Abdominal exam: PRESENT: normal bowel sounds, soft. ABSENT: distended, guarding, tenderness Rectal exam: PRESENT: deferred Gentrourinary exam: PRESENT: indwelling catheter Extremities exam: ABSENT: pedal edema Musculoskeletal exam: PRESENT: other - Decreased muscle mass Neurological exam: PRESENT: alert, awake, oriented to person, oriented to place, CN II-XII grossly intact Psychiatric exam: PRESENT: flat affect. ABSENT: agitated, anxious Focused psych exam: ABSENT: delusional, paranoid, restlessness Skin exam: PRESENT: dry, warm. ABSENT: cyanosis, erythema, rash Results Laboratory Results: 03/21/20 22:23 03/21/20 22:23 03/16/20 03/16/20 03/16/20 12:24 17:59 22:24 Troponin I 0.069 0.056 0.042 03/17/20 04:25 Troponin I 0.037 Impressions: Chest X-Ray 03/16/20 11:55 IMPRESSION: Patchy right basilar airspace disease with small right effusion suspicious for pneumonia. Minimally displaced right-sided rib fractures. Additional consideration for pulmonary findings include contusion. Assessment and Plan - Diagnosis (1) Acute respiratory failure with hypercapnia Is this a current diagnosis for this admission?: Yes Plan: Actually very comfortable with nasal cannula in place and the nursing staff feeding her. She does try to take her nasal cannula off. As she is transitioning back to hospice care I told the staff that it is probably better to try and keep the meds for off to avoid agitation and if she pulls the nasal cannula off just replace it and encouraged her to keep it on. (2) Pneumonia Qualifiers: Pneumonia type: due to unspecified organism Laterality: right Lung location: lower lobe of lung Qualified Code(s): J18.9 - Pneumonia, unspecified organism Is this a current diagnosis for this admission?: Yes Plan: Antibiotic therapy completed tomorrow (3) Hypertension Qualifiers: Hypertension type: essential hypertension Qualified Code(s): I10 - Essential (primary) hypertension Is this a current diagnosis for this admission?: No Plan: No changes at this time (4) Protein-energy malnutrition Qualifiers: Protein-calorie malnutrition severity: severe Qualified Code(s): E43 - Unspecified severe protein-calorie malnutrition Is this a current diagnosis for this admission?: Yes Plan: Patient actually has a good appetite this evening. Continue to encourage oral intake. (5) Acute exacerbation of chronic obstructive pulmonary disease (COPD) Is this a current diagnosis for this admission?: Yes Plan: Continue nebulizers, oxygen and BiPAP (6) Hypokalemia Is this a current diagnosis for this admission?: Yes Plan: Correction from yesterday: Laboratory studies from March 21 (not March 29) revealed normokalemia. Continue current regimen. Will recheck intermittently. (7) Rib fractures Qualifiers: Encounter type: initial encounter Rib fracture type: multiple ribs Fracture type: closed Laterality: right Qualified Code(s): S22.41XA - Multiple fractures of ribs, right side, initial encounter for closed fracture Is this a current diagnosis for this admission?: Yes Plan: Patient was not tender on the right side today. Likely to displaced rib fractures on the right based on x-ray sustained in a fall at home. Continue conservative management. - Time Time Spent with patient: 15-24 minutes Medications reviewed and adjusted accordingly: Yes Anticipated discharge: Hospice Within: when bed available
[2020-03-24] MEDS: LORAZEPAM INJ 2 MG/1 ML VIAL IV PRN ×2 (00:09→17:49)
[2020-03-24] MEDS: HEPARIN SOD (PORCINE) 5,000 UNIT/ML 1 ML VIAL SUBCUT SCH ×3 (05:24→21:49)
[2020-03-24] MEDS: FLUTICASONE/VILANTEROL 200-25 MCG/DOSE IH SCH (09:34)
[2020-03-24] MEDS: AMLODIPINE BESYLATE 10 MG TABLET PO SCH (09:35)
[2020-03-24] MEDS: DOCUSATE SODIUM 100 MG CAPSULE PO SCH ×2 (09:35→17:49)
--- NOTE | 2020-03-24 11:58 | PDOC PROGRESS REPORT ---
Subjective Progress Note for:: 03/24/20 Subjective:: Patient is very sleepy today. She is breathing comfortably. Reason For Visit: ACUTE ON CHRONIC RESP FAILURE Physical Exam Vital Signs: Temp Pulse Resp BP Pulse Ox 97.3 F 85 19 146/53 H 99 03/24/20 07:11 03/24/20 07:11 03/24/20 11:50 03/24/20 07:11 03/24/20 11:50 Intake & Output 03/23/20 03/24/20 03/25/20 06:59 06:59 06:59 Intake Total 350 720 Output Total 450 200 Balance -100 520 Weight 42.7 kg 44.8 kg General appearance: PRESENT: no acute distress, thin Ear exam: PRESENT: normal external ear exam. ABSENT: bleeding, drainage Teeth exam: PRESENT: poor dentation Respiratory exam: PRESENT: clear to auscultation ada, symmetrical, unlabored. ABSENT: rales, rhonchi, tachypnea, wheezes Cardiovascular exam: PRESENT: RRR, +S1, +S2. ABSENT: bradycardia, diastolic murmur, irregular rhythm, systolic murmur, tachycardia GI/Abdominal exam: PRESENT: normal bowel sounds, soft. ABSENT: distended, guarding, tenderness Rectal exam: PRESENT: deferred Gentrourinary exam: PRESENT: indwelling catheter Extremities exam: ABSENT: pedal edema Musculoskeletal exam: PRESENT: other - Decreased muscle mass. ABSENT: ambulatory, deformity, dislocation Neurological exam: ABSENT: awake - Very sleepy Psychiatric exam: ABSENT: agitated, anxious Results Laboratory Results: 03/21/20 22:23 03/21/20 22:23 03/16/20 03/16/20 03/16/20 12:24 17:59 22:24 Troponin I 0.069 0.056 0.042 03/17/20 04:25 Troponin I 0.037 Impressions: Chest X-Ray 03/16/20 11:55 IMPRESSION: Patchy right basilar airspace disease with small right effusion suspicious for pneumonia. Minimally displaced right-sided rib fractures. Additional consideration for pulmonary findings include contusion. Assessment and Plan - Diagnosis (1) Acute respiratory failure with hypercapnia Is this a current diagnosis for this admission?: Yes Plan: Still requiring oxygen. After talking with her son Myels we are going to take off the mitten restraints. If she removes the oxygen we will just gently encourage her to put it back on but not force the issue. (2) Pneumonia Qualifiers: Pneumonia type: due to unspecified organism Laterality: right Lung location: lower lobe of lung Qualified Code(s): J18.9 - Pneumonia, unspecified organism Is this a current diagnosis for this admission?: Yes Plan: She did receive a complete course of antibiotic therapy (3) Hypertension Qualifiers: Hypertension type: essential hypertension Qualified Code(s): I10 - Essential (primary) hypertension Is this a current diagnosis for this admission?: No Plan: Not well controlled but the patient has been declining medications (4) Protein-energy malnutrition Qualifiers: Protein-calorie malnutrition severity: severe Qualified Code(s): E43 - Unspecified severe protein-calorie malnutrition Is this a current diagnosis for this admission?: Yes Plan: Limited appetite. Unlikely to recover. The patient is going to inpatient hospice. She will occasionally ask for food (5) Acute exacerbation of chronic obstructive pulmonary disease (COPD) Is this a current diagnosis for this admission?: Yes Plan: Stable. As noted above we will treat if the patient is willing. If she refuses that is okay as well. (6) Hypokalemia Is this a current diagnosis for this admission?: Yes Plan: No labs obtained as patient will be going to inpatient hospice (7) Rib fractures Qualifiers: Encounter type: initial encounter Rib fracture type: multiple ribs Fracture type: closed Laterality: right Qualified Code(s): S22.41XA - Multiple fractures of ribs, right side, initial encounter for closed fracture Is this a current diagnosis for this admission?: Yes Plan: Stable. No pain. - Time Time Spent with patient: 15-24 minutes Medications reviewed and adjusted accordingly: Yes Anticipated discharge: Hospice Anticipated DC Timeframe: when bed available
[2020-03-24] MEDS: IPRATROPIUM/ALBUTEROL 0.5-2.5 MG/3 ML AMPUL NEB SCH (14:49)
[2020-03-25] MEDS: HEPARIN SOD (PORCINE) 5,000 UNIT/ML 1 ML VIAL SUBCUT SCH ×3 (05:09→21:11)
[2020-03-25] MEDS: DOCUSATE SODIUM 100 MG CAPSULE PO SCH ×2 (10:43→17:25)
[2020-03-25] MEDS: FLUTICASONE/VILANTEROL 200-25 MCG/DOSE IH SCH (10:43)
[2020-03-25] MEDS: AMLODIPINE BESYLATE 10 MG TABLET PO SCH (10:45)
--- NOTE | 2020-03-25 11:43 | PDOC PROGRESS REPORT ---
Subjective Progress Note for:: 03/25/20 Subjective:: The patient is awake this morning. She is taking small bites for breakfast. Patient has not complained of any pain. Hand mittens are in place. Reason For Visit: ACUTE ON CHRONIC RESP FAILURE Physical Exam Vital Signs: Temp Pulse Resp BP Pulse Ox 98.2 F 62 19 156/82 H 97 03/25/20 08:00 03/25/20 08:00 03/25/20 08:00 03/25/20 08:00 03/25/20 08:00 Intake & Output 03/24/20 03/25/20 03/26/20 06:59 06:59 06:59 Intake Total 720 90 Output Total 200 375 Balance 520 -285 Weight 44.8 kg 43 kg General appearance: PRESENT: no acute distress, cooperative, thin Head exam: PRESENT: atraumatic, other - Temporal wasting Mouth exam: PRESENT: moist, tongue midline Respiratory exam: PRESENT: clear to auscultation ada, symmetrical, unlabored. ABSENT: rales, rhonchi, tachypnea, wheezes Cardiovascular exam: PRESENT: RRR, +S1, +S2. ABSENT: irregular rhythm GI/Abdominal exam: PRESENT: normal bowel sounds, soft. ABSENT: distended, tenderness Rectal exam: PRESENT: deferred Gentrourinary exam: PRESENT: indwelling catheter Extremities exam: ABSENT: pedal edema Musculoskeletal exam: PRESENT: other - Decreased muscle mass. ABSENT: ambulatory Neurological exam: PRESENT: alert, awake, oriented to person Psychiatric exam: PRESENT: flat affect. ABSENT: agitated, anxious Results Laboratory Results: 03/21/20 22:23 03/21/20 22:23 03/16/20 03/16/20 03/16/20 12:24 17:59 22:24 Troponin I 0.069 0.056 0.042 03/17/20 04:25 Troponin I 0.037 Impressions: Chest X-Ray 03/16/20 11:55 IMPRESSION: Patchy right basilar airspace disease with small right effusion suspicious for pneumonia. Minimally displaced right-sided rib fractures. Additional consideration for pulmonary findings include contusion. Assessment and Plan - Diagnosis (1) Acute respiratory failure with hypercapnia Is this a current diagnosis for this admission?: Yes Plan: Continue BiPAP and oxygen. As the patient is transitioning to inpatient hospice care regimen will be more conservative. Do not use the hand mittens. If the patient does not want the oxygen or BiPAP then removed off and after a period of time asked her if she would want to wear it then. I feel the mittens pose more of an irritation than of benefit at this point. (2) Pneumonia Qualifiers: Pneumonia type: due to unspecified organism Laterality: right Lung location: lower lobe of lung Qualified Code(s): J18.9 - Pneumonia, unspecified organism Is this a current diagnosis for this admission?: Yes Plan: Antibiotic therapy completed (3) Hypertension Qualifiers: Hypertension type: essential hypertension Qualified Code(s): I10 - Essential (primary) hypertension Is this a current diagnosis for this admission?: No Plan: Have discontinued the amlodipine. Hydralazine is still available. Vital signs will be decreased to every shift. (4) Protein-energy malnutrition Qualifiers: Protein-calorie malnutrition severity: severe Qualified Code(s): E43 - Unspecified severe protein-calorie malnutrition Is this a current diagnosis for this admission?: Yes Plan: Oral diet as tolerated by the patient. (5) Acute exacerbation of chronic obstructive pulmonary disease (COPD) Is this a current diagnosis for this admission?: Yes Plan: Continue nebulizer treatments to make her breathing comfortable. (6) Hypokalemia Is this a current diagnosis for this admission?: Yes Plan: No further laboratory testing (7) Rib fractures Qualifiers: Encounter type: initial encounter Rib fracture type: multiple ribs Fracture type: closed Laterality: right Qualified Code(s): S22.41XA - Multiple fractures of ribs, right side, initial encounter for closed fracture Is this a current diagnosis for this admission?: Yes Plan: Asymptomatic - Time Time Spent with patient: 15-24 minutes Medications reviewed and adjusted accordingly: Yes Anticipated Discharge Disposition: Hospice Center Anticipated Discharge: when bed available
[2020-03-25] MEDS: IPRATROPIUM/ALBUTEROL 0.5-2.5 MG/3 ML AMPUL NEB PRN (17:06)
[2020-03-25] MEDS: LORAZEPAM INJ 2 MG/1 ML VIAL IV PRN (22:26)
[2020-03-26] MEDS: FLUTICASONE/VILANTEROL 200-25 MCG/DOSE IH SCH (09:42)
[2020-03-26] MEDS: DOCUSATE SODIUM 100 MG CAPSULE PO SCH ×2 (09:43→18:04)
--- NOTE | 2020-03-26 13:59 | PDOC PROGRESS REPORT ---
Subjective Progress Note for:: 03/26/20 Subjective:: Patient is peacefully resting today. No issues reported overnight. Reason For Visit: ACUTE ON CHRONIC RESP FAILURE Physical Exam Vital Signs: Temp Pulse Resp BP Pulse Ox 97.6 F 76 26 H 143/56 H 100 03/26/20 11:52 03/26/20 11:52 03/26/20 11:52 03/26/20 11:52 03/26/20 11:52 Intake & Output 03/25/20 03/26/20 03/27/20 06:59 06:59 06:59 Intake Total 90 120 0 Output Total 375 340 25 Balance -285 -220 -25 Weight 43 kg General appearance: PRESENT: no acute distress, cooperative Respiratory exam: PRESENT: unlabored. ABSENT: accessory muscle use, retraction Psychiatric exam: ABSENT: agitated, anxious Focused psych exam: ABSENT: pressured speech Results Laboratory Results: 03/21/20 22:23 03/21/20 22:23 03/16/20 03/16/20 03/16/20 12:24 17:59 22:24 Troponin I 0.069 0.056 0.042 03/17/20 04:25 Troponin I 0.037 Impressions: Chest X-Ray 03/16/20 11:55 IMPRESSION: Patchy right basilar airspace disease with small right effusion suspicious for pneumonia. Minimally displaced right-sided rib fractures. Additional consideration for pulmonary findings include contusion. Assessment and Plan - Diagnosis (1) Acute respiratory failure with hypercapnia Is this a current diagnosis for this admission?: Yes (2) Hypokalemia Is this a current diagnosis for this admission?: Yes (3) Pneumonia Qualifiers: Pneumonia type: due to unspecified organism Laterality: right Lung location: lower lobe of lung Qualified Code(s): J18.9 - Pneumonia, unspecified organism Is this a current diagnosis for this admission?: Yes (4) Rib fractures Qualifiers: Encounter type: initial encounter Rib fracture type: multiple ribs Fracture type: closed Laterality: right Qualified Code(s): S22.41XA - Multiple fractures of ribs, right side, initial encounter for closed fracture Is this a current diagnosis for this admission?: Yes (5) Acute exacerbation of chronic obstructive pulmonary disease (COPD) Is this a current diagnosis for this admission?: Yes (6) Hypertension Qualifiers: Hypertension type: essential hypertension Qualified Code(s): I10 - Essential (primary) hypertension Is this a current diagnosis for this admission?: No (7) Protein-energy malnutrition Qualifiers: Protein-calorie malnutrition severity: severe Qualified Code(s): E43 - Unspecified severe protein-calorie malnutrition Is this a current diagnosis for this admission?: Yes - Plan Summary Summary: Patient is currently on hospice care. Morphine IV as needed. Ativan IV as needed. Awaiting hospice placement Continue nebulizer treatments as needed as well as Breo inhaler for now. - Time Time Spent with patient: Less than 15 minutes Anticipated Discharge Disposition: Hospice Center Anticipated Discharge: when bed available
[2020-03-26] MEDS: IPRATROPIUM/ALBUTEROL 0.5-2.5 MG/3 ML AMPUL NEB PRN (16:07)
[2020-03-26] MEDS ORDERED: MORPHINE SULFATE 10 MG/ML INJ IV PRN (16:21)
[2020-03-27 08:24] VITALS: BP 152/58
[2020-03-27] MEDS: FLUTICASONE/VILANTEROL 200-25 MCG/DOSE IH SCH (09:35)
[2020-03-27] MEDS: DOCUSATE SODIUM 100 MG CAPSULE PO SCH (09:35)
--- NOTE | 2020-03-27 11:58 | PDOC TRANSFER SUMMARY ---
General - Admit/Disc Date/PCP Admission Date/Primary Care Provider: 03/16/20 15:17 Discharge Date: 03/27/20 - Discharge Diagnosis (1) Acute respiratory failure with hypercapnia Is this a current diagnosis for this admission?: Yes (2) Hypokalemia Is this a current diagnosis for this admission?: Yes (3) Pneumonia Is this a current diagnosis for this admission?: Yes (4) Rib fractures Is this a current diagnosis for this admission?: Yes (5) Acute exacerbation of chronic obstructive pulmonary disease (COPD) Is this a current diagnosis for this admission?: Yes (6) Hypertension Is this a current diagnosis for this admission?: No (7) Protein-energy malnutrition Is this a current diagnosis for this admission?: Yes - Additional Information Resuscitation Status: Do Not Resuscitate Prescriptions: Lorazepam [Ativan 1 mg Tablet] 1 mg PO Q4HP PRN #5 tab PRN Reason: Docusate Sodium [Colace 100 mg Capsule] 100 mg PO DAILY #10 capsule Ipratropium/Albuterol Sulfate [Combivent Respimat 4 gm Mdi] 1 puff IH Q6HP PRN #1 inhaler PRN Reason: Morphine Sulfate [Morphine Ir 15 Mg Tablet] 15 mg PO Q4HP PRN #4 tablet PRN Reason: Home Medications: Amlodipine Besylate [Norvasc 10 mg Tablet] 10 mg PO DAILY 06/15/14 Albuterol Sulfate [Proair HFA] 2 puff IH Q4HP PRN 06/16/14 Fluticasone Propion/Salmeterol [Advair HFA 230-21 mcg Inhaler] 2 puff IH Q12 03/16/20 Acetaminophen [Tylenol 325 mg Tablet] 650 mg PO Q4HP PRN tablet 03/27/20 Docusate Sodium [Colace 100 mg Capsule] 100 mg PO DAILY #10 capsule 03/27/20 Ipratropium/Albuterol Sulfate [Combivent Respimat 4 gm Mdi] 1 puff IH Q6HP PRN #1 inhaler 03/27/20 Lorazepam [Ativan 1 mg Tablet] 1 mg PO Q4HP PRN #5 tab 03/27/20 Morphine Sulfate [Morphine Ir 15 Mg Tablet] 15 mg PO Q4HP PRN #4 tablet 03/27/20 History of Present Illness Admission Date/PCP: 03/16/20 15:17 History of Present Illness: History of Present Illness: According to admitting provider: TERRI ARREDONDO is a 85 year old female with history of COPD, cachexia, bedbound, hypertension was brought to the emergency room with complaints of severe shortness of breath. ABG in the ER shows pCO2 of 89%. She was placed on BiPAP and as per the patient and the family she wants to be full code. Chest x-ray suggestive of questionable right-sided pneumonia with right-sided rib cage fractures. Discussed the case with the patient's son he was everything to be done including intubation. WBC count is normal and patient is afebrile. Hospital Course Hospital Course: Patient was treated for acute respiratory failure with hypoxia and hypercapnia which was thought to be secondary to an acute exacerbation of COPD. She was also thought to have a pneumonia in her right lower lung and was treated with antibiotics and has completed treatment for this. Blood cultures were negative. Patient was treated with BiPAP therapy and receive nebulizers for treatment of her COPD. She was also noted to have multiple rib fractures and treated with pain control though did not require significant pain meds for management of her rib fracture pain. She was noted to also have electrolyte abnormalities and severe malnutrition. After deliberations with patient's family regarding her respiratory condition respiratory status, the decision was made to proceed with hospice care. Physical Exam Vital Signs: Temp Pulse Resp BP Pulse Ox 97.3 F 72 18 152/58 H 99 03/27/20 08:12 03/27/20 08:12 03/27/20 08:12 03/27/20 08:12 03/27/20 08:12 Intake & Output 03/26/20 03/27/20 03/28/20 06:59 06:59 06:59 Intake Total 120 50 Output Total 340 275 Balance -220 -225 Weight 43 kg Results Laboratory Results: 03/21/20 22:23 03/21/20 22:23 03/16/20 03/16/20 03/16/20 12:24 17:59 22:24 Troponin I 0.069 0.056 0.042 03/17/20 04:25 Troponin I 0.037 Impressions: Chest X-Ray 03/16/20 11:55 IMPRESSION: Patchy right basilar airspace disease with small right effusion suspicious for pneumonia. Minimally displaced right-sided rib fractures. Additional consideration for pulmonary findings include contusion. Transfer Plan - Time Spent with Patient Time spent with patient: Less than 30 Minutes Qualifiers PATIENT BEING DISCHARGED WITH ANY OF THE FOLLOWING DIAGNOSIS: No Plan Time Spent: Less than 30 Minutes
== END 2020-03-27 14:08 | disposition hospice, inpatient (51) | DRG 193 ==
LOC: ER 11:52 → EH 15:17 → 3W 17:12 → 3S 23:56
PROVIDERS: ADMIT Internal Medicine; ATTEND Hospitalist
PROC: 5A09457 Assistance with Respiratory Ventilation, 24-96 Consecutive Hours, Continuous Positive Airway Pressure (ICD-10-PCS; principal; 2020-03-16)
DX: J18.9 Pneumonia, unspecified organism (principal); J96.22 Acute and chronic respiratory failure with hypercapnia; E43 Unspecified severe protein-calorie malnutrition; J96.21 Acute and chronic respiratory failure with hypoxia; J44.1 Chronic obstructive pulmonary disease with (acute) exacerbation; Z68.1 Body mass index [BMI] 19.9 or less, adult; R64 Cachexia; J44.0 Chronic obstructive pulmonary disease with (acute) lower respiratory infection; S22.41XA Multiple fractures of ribs, right side, initial encounter for closed fracture; Z66 Do not resuscitate; E87.6 Hypokalemia; Z91.013 Allergy to seafood; Z87.891 Personal history of nicotine dependence; I10 Essential (primary) hypertension; R40.2362 Coma scale, best motor response, obeys commands, at arrival to emergency department; R40.2142 Coma scale, eyes open, spontaneous, at arrival to emergency department; R40.2242 Coma scale, best verbal response, confused conversation, at arrival to emergency department; Z79.51 Long term (current) use of inhaled steroids; X58.XXXA Exposure to other specified factors, initial encounter; Z74.01 Bed confinement status; Z79.899 Other long term (current) drug therapy; Z78.1 Physical restraint status; Z20.828 Contact with and (suspected) exposure to other viral communicable diseases
CPT/HCPCS: 36415; 71045; 80048; 80053; 80061; 82803; 82962; 83036; 83605; 83735; 84443; 84484; 85025; 85027; 85610; 87040; 87635; 93005; 93010; 94660; 96365; 99291; C9113; C9803; J0360; J0456; J0696; J1644; J2060; J2270; J2405; J3480; J3490; J7060